=== PATIENT | male | born 1945 | race Caucasian/White ===

== ENCOUNTER 2016-12-28 17:35 | Emergency (ER) | payer MEDICARE ==
[~2016-12-28] VITALS: Ht 182.9 cm; Wt 81.0 kg
[~2016-12-28 17:35] MED LIST: Z.0.NO CURRENT MEDS
[2016-12-28 17:39] VITALS: BP 168/84; PULSE 109; RESP 18; TEMP 98.1; O2SAT 96
--- NOTE | 2016-12-28 17:58 | PD ---
HPI Chief Complaint: Lump, Cyst, Hernia Time Seen by Provider: 17:54 Travel History International Travel<30 days: No Contact w/Intl Traveler<30days: No Traveled to known affect area: No History of Present Illness HPI 71-year-old male presents to the emergency department for evaluation of a lump in his right groin that he noticed today. He states it is not painful. He denies any redness or warmth over the area. Patient states he has a cardiac history, but states he is not currently taking any medications. Patient also states that he suffers from chronic insomnia. He is asking for prescription for Ambien. The patient denies any fevers or chills. No other complaints. PFSH Past Medical History Arthritis: Yes ("arthritis of the neck") Cardiac Catheterization: Yes (STENTS PLACED 11/2006) High Cholesterol: Yes Chest Pain: Yes Coronary Artery Disease: Yes Diminished Hearing: No Herniated Disk: Yes Insomnia: Yes Musculoskeletal: Yes (CHRONIC BACK PAIN) Past Surgical History Appendectomy: Yes Cardiac Surgery: Yes (STENT IN 2001) Coronary Stent: Yes ("three stents") Tonsillectomy: Yes Social History Alcohol Use: No Tobacco Use: No (quit 1998) Substance Use: No Allergies-Medications (Allergen,Severity, Reaction): Coded Allergies: No Known Allergies (Verified , 12/28/16) Reported Meds & Prescriptions Reported Meds & Active Scripts Active Reported No Current Meds (Miscellaneous Medication) Misc Review of Systems Except as stated in HPI: all other systems reviewed are Neg Physical Exam Narrative GENERAL: Well-nourished, well-developed male patient, afebrile. SKIN: Focused skin assessment warm/dry. HEAD: Normocephalic. Atraumatic. EYES: No scleral icterus. No injection or drainage. NECK: Supple, trachea midline. No JVD or lymphadenopathy. CARDIOVASCULAR: Regular rate and rhythm without murmurs, gallops, or rubs. RESPIRATORY: Breath sounds equal bilaterally. No accessory muscle use. Lungs sounds are clear to auscultation. GASTROINTESTINAL: Abdomen soft, non-tender, nondistended. Patient has a right inguinal hernia that is easily reproduced. It is nontender. MUSCULOSKELETAL: No cyanosis, or edema. BACK: Nontender without obvious deformity. No CVA tenderness. Data Data Last Documented VS Vital Signs Date Time Temp Pulse Resp B/P Pulse Ox O2 Delivery O2 Flow Rate FiO2 12/28/16 17:39 98.1 109 18 168/84 96 [facility] Medical Decision Making Medical Screen Exam Complete: Yes Emergency Medical Condition: Yes Medical Record Reviewed: Yes Differential Diagnosis Inguinal hernia versus lymphadenitis versus abscess Narrative Course 71-year-old male presents to the emergency department for evaluation of swelling to his right inguinal region. Physical exam reveals an easily reducible hernia. Patient is also asking for prescription for Ambien for insomnia which is chronic for him. I instructed to follow-up with primary care physician for this. He is also to follow up with his primary care physician for the hernia. He is to return here for any worsening symptoms. Patient verbalizes agreement and understanding. The patient was discharged in stable condition with instructions, including return instructions and follow up instructions. Diagnosis Primary Impression: Right inguinal hernia Referrals: General Surgeon Primary Care Physician Patient Instructions: General Instructions, Inguinal Hernia (ED) Additional Instructions: Follow up with your primary care physician and general surgeon. Return to the emergency department for any acute, worsening of symptoms. Med/Other Pt SpecificInfo: No Change to Meds Disposition: 01 DISCHARGE HOME Condition: Stable Helen Obregon JOCELIN Dec 28, 2016 17:58
[2016-12-28] MEDS ORDERED: AMBI10TA PO (18:04)
== END 2016-12-28 18:11 | disposition home or self-care (01) ==
LOC: PHED 17:35
DX: K40.90 Unilateral inguinal hernia, without obstruction or gangrene, not specified as recurrent (principal)
CPT/HCPCS: 99281

== ENCOUNTER 2017-02-15 02:15 | Inpatient (IN) | payer OTHER, MEDICARE ==
[~2017-02-15] VITALS: Ht 170.2 cm; Wt 83.0 kg
[2017-02-15] VITALS (24 sets, daily range): BP systolic 84–140; BP diastolic 57–90; PULSE 61–102; RESP 16–20; TEMP 97.3–98.6; O2SAT 91–99
[~2017-02-15 02:15] MED LIST changes: +AMBI10TA PO; -Z.0.NO CURRENT MEDS
[2017-02-15] MEDS ORDERED: SODIUM CHLOR 0.9% 1000 ML INJ 1,000 ML IV ONE (02:20)
[2017-02-15] MEDS ORDERED: NITROGLYCERIN 0.4 MG SL 25 TABS/BTL SL STA (02:20)
[2017-02-15] MEDS ORDERED: ASPIRIN 81 MG CHEW TAB PO STA (02:20)
[2017-02-15] MEDS ORDERED: HEPARIN SODIUM - IV 10,000 UNITS/10 ML VIAL IV STA (02:20)
[2017-02-15] MEDS ORDERED: SODIUM CHLORIDE 0.9% FLUSH 10 ML FLUSH IVF PRN (02:30)
[2017-02-15] MEDS ORDERED: NITROGLYCERIN-D5W 50 MG/250 ML 250 ML IV PRN (02:30)
[2017-02-15] MEDS ORDERED: METOPROLOL TARTRATE 5 MG/5 ML VIAL SLOW IVP SCH (02:30)
[2017-02-15 02:35] LABS: AUTOMATED NEUTROPHIL # 4.7 TH/MM3 (1.8-7.7); BASOPHIL # 0.2 TH/MM3 (0-0.2); BASOPHIL % 2.1 % (0.0-2.0); EOSINOPHIL # 0.3 TH/MM3 (0-0.4); EOSINOPHIL % 2.6 % (0.0-4.0); HEMATOCRIT 45.7 % (39.0-51.0); LYMPH % 41.4 % (9.0-44.0); LYMPHOCYTE # 4.1 TH/MM3 (1.0-4.8); MEAN CELL VOLUME 89.5 FL (80.0-100.0); MEAN CORPUSCULAR HEMOGLOBIN 29.6 PG (27.0-34.0); MONO % 6.5 % (0.0-8.0); NEUT % 47.4 % (16.0-70.0); PLATELET COUNT 317 TH/MM3 (150-450); RED BLOOD COUNT 5.11 MIL/MM3 (4.50-5.90); RED CELL DISTRIBUTION WIDTH 13.6 % (11.6-17.2); WHITE BLOOD COUNT 9.9 TH/MM3 (4.0-11.0)
[2017-02-15 02:36] LABS: HEMO FLAGS DIFF FINAL
--- NOTE | 2017-02-15 02:36 | PD ---
HPI Chief Complaint: Chest Pain Time Seen by Provider: 02:20 Travel History International Travel<30 days: No Contact w/Intl Traveler<30days: No Traveled to known affect area: No History of Present Illness HPI The patient is a 71-year-old male with a known history of coronary artery disease and having had 2 stents-2001 and 2006 who complains of a pressure pain in these left upper chest beginning at 5 minutes after 2 in the morning. The pain radiates to his jaw and he does have some diaphoresis and shortness of breath associated with the pain. The pain is constant since it began. He does take aspirin and took aspirin yesterday but none today. He does not smoke but does have elevated cholesterol. He does not have diabetes or hypertension. He had a stress test 2 weeks ago done at the [place] and this was abnormal and showed ischemia. This was not followed up by an angiogram. [facility] Past Medical History Arthritis: Yes ("arthritis of the neck") Cardiac Catheterization: Yes (STENTS PLACED 11/2006) High Cholesterol: Yes Chest Pain: Yes Coronary Artery Disease: Yes Diminished Hearing: No Herniated Disk: Yes Insomnia: Yes Musculoskeletal: Yes (CHRONIC BACK PAIN) ?: Not Past Surgical History Appendectomy: Yes Cardiac Surgery: Yes (STENT IN 2001) Coronary Stent: Yes ("three stents") Tonsillectomy: Yes Social History Alcohol Use: No Tobacco Use: No (quit 1998) Substance Use: No Allergies-Medications (Allergen,Severity, Reaction): Coded Allergies: No Known Allergies (Verified , 02/15/17) Reported Meds & Prescriptions Reported Meds & Active Scripts Active No Active Prescriptions or Reported Medications Review of Systems Except as stated in HPI: all other systems reviewed are Neg Physical Exam Narrative GENERAL: The patient is alert, oriented 3 and moderate amount of distress with his chest discomfort. His vital signs show heart rate of 102 but are otherwise normal. SKIN: Focused skin assessment warm/dry. HEAD: Atraumatic. Normocephalic. EYES: Pupils equal and round. No scleral icterus. No injection or drainage. ENT: No nasal bleeding or discharge. Mucous membranes pink and moist. NECK: Trachea midline. No JVD. CARDIOVASCULAR: Regular rate and rhythm. No murmur appreciated. I cannot reproduce patient's pain by pressing on the chest wall. RESPIRATORY: No accessory muscle use. Clear to auscultation. Breath sounds equal bilaterally. GASTROINTESTINAL: Abdomen soft, non-tender, nondistended. Hepatic and splenic margins not palpable. No guarding or rebound is present. MUSCULOSKELETAL: No obvious deformities. No clubbing. No cyanosis. No edema. NEUROLOGICAL: Awake and alert. No obvious cranial nerve deficits. Motor grossly within normal limits. Normal speech. PSYCHIATRIC: Appropriate mood and affect; insight and judgment normal. Data Data Last Documented VS Vital Signs Date Time Temp Pulse Resp B/P (MAP) Pulse Ox O2 Delivery O2 Flow Rate FiO2 02/15/17 02:18 98.0 102 18 140/83 (102) Orders Orders Troponin I (02/15/17 02:20) Ckmb (Isoenzyme) Profile (02/15/17 02:20) Complete Blood Count With Diff (02/15/17 02:20) Basic Metabolic Panel (Bmp) (02/15/17 02:20) Magnesium (Mg) (02/15/17 02:20) Calcium (02/15/17 02:20) Prothrombin Time / Inr (Pt) (02/15/17 02:20) Act Partial Throm Time (Ptt) (02/15/17 02:20) B-Type Natriuretic Peptide (02/15/17 02:20) Chest, Single Ap (02/15/17 02:20) Electrocardiogram (02/15/17 02:20) Oxygen Administration (02/15/17 02:20) Iv Access Insert/Monitor (02/15/17 02:20) Oximetry (02/15/17 02:20) Sodium Chlor 0.9% 1000 Ml Inj (Ns 1000 M (02/15/17 02:20) Sodium Chloride 0.9% Flush (Ns Flush) (02/15/17 02:30) Aspirin Chew (Aspirin Chew) (02/15/17 02:20) Nitroglycerin Sl (Nitrostat Sl) (02/15/17 02:20) Nitroglycerin-D5w 50 Mg/250 Ml (Nitrogly (02/15/17 02:30) Heparin Inj (Heparin Inj) (02/15/17 02:20) Metoprolol Tartrate Inj (Lopressor Inj) (02/15/17 02:30) Labs Laboratory Tests Test 02/15/17 02:10 White Blood Count 9.9 TH/MM3 Red Blood Count 5.11 MIL/MM3 Hemoglobin 15.1 GM/DL Hematocrit 45.7 % Mean Corpuscular Volume 89.5 FL Mean Corpuscular Hemoglobin 29.6 PG Mean Corpuscular Hemoglobin Concent 33.0 % Red Cell Distribution Width 13.6 % Platelet Count 317 TH/MM3 Mean Platelet Volume 8.4 FL Neutrophils (%) (Auto) 47.4 % Lymphocytes (%) (Auto) 41.4 % Monocytes (%) (Auto) 6.5 % Eosinophils (%) (Auto) 2.6 % Basophils (%) (Auto) 2.1 % Neutrophils # (Auto) 4.7 TH/MM3 Lymphocytes # (Auto) 4.1 TH/MM3 Monocytes # (Auto) 0.6 TH/MM3 Eosinophils # (Auto) 0.3 TH/MM3 Basophils # (Auto) 0.2 TH/MM3 CBC Comment DIFF FINAL Differential Comment MDM Medical Decision Making Medical Screen Exam Complete: Yes Emergency Medical Condition: Yes Medical Record Reviewed: Yes Interpretation(s) The EKG shows slight ST elevation on one and L with reciprocal depression in II , III, and F aVF. ST elevation on 1 and L is minimal. This represents a change from an EKG taken on November 2006. Leads V1 through V3 may show hyperacute change. Differential Diagnosis Acute coronary syndrome, STEMI alert, pericarditis-unlikely, electrolyte disorder, renal insufficiency Narrative Course The patient appears to have a STEMI alert, acute anterolateral myocardial infarction. He came in so early that some of the changes may not show up on the EKG other than hyperacute changes. The patient was discussed with Dr. Sesay who accepted the patient in the catheter lab. The patient is leaving he states his pain is slightly improved now. It is now 0241. Physician Communication Physician Communication I discussed the patient with Dr. Sesay. Diagnosis Primary Impression: Acute myocardial infarction Admitting Information Admitting Physician Requests: Admit Scripts No Active Prescriptions or Reported Meds Farhat Paul MD Feb 15, 2017 02:36
--- NOTE | 2017-02-15 02:40 | RADRPT ---
EXAM DATE/TIME: 02/15/2017 02:25 [place] COMPARISON: No previous studies available for comparison. INDICATIONS : Stemi alert. MEDICAL HISTORY : Hypercholesterolemia. Arthritis. CAD, HNP SURGICAL HISTORY : Tonsillectomy. Coronary artery stent. Appendectomy. Back surgery ENCOUNTER: Initial ACUITY: 1 day PAIN SCORE: 10/10 LOCATION: Bilateral chest FINDINGS: There is poor delineation of the central bronchopulmonary markings and findings suggesting peribronch ial thickening. Non consolidative infiltrates are present in the retrocardiac region and there is ob scuration of portions of the left hemidiaphragm. The minor fissure in the right lung is slightly pro minent suggesting possible atelectasis or fissural fluid. The heart is enlarged. CONCLUSION: Cardiomegaly, engorgement of the central bronchopulmonary markings, and patchy infiltrates in the lef t lower lung. Gregor Pepe MD on February 15, 2017 at 2:37 Board Certified Radiologist. This report was verified electronically.
[2017-02-15 02:44] LABS: CHLORIDE 102 MEQ/L (98-107); POTASSIUM 3.8 MEQ/L (3.5-5.1); SODIUM (NA) 138 MEQ/L (136-145)
[2017-02-15 02:47] LABS: ANION GAP 10 MEQ/L (5-15); BICARBONATE 26.3 MEQ/L (21.0-32.0); BLOOD UREA NITROGEN 18 MG/DL (7-18); MAGNESIUM 2.5 MG/DL (1.5-2.5)
[2017-02-15 02:48] LABS: APTT (PATIENT) 26.4 SEC (24.3-30.1); INTERNATIONAL NORMALIZED RATIO 0.9 RATIO; PROTHROMBIN TIME - PATIENT 10.2 SEC (9.8-11.6)
[2017-02-15 02:51] LABS: GLOMERULAR FILTRATION RATE 55 ML/MIN (>89)
[2017-02-15] MEDS ORDERED: HEPARIN-NS/PF INJ 1,000 ML ONE (02:58)
[2017-02-15] MEDS ORDERED: SODIUM CHLORID 0.9% 500 ML INJ 500 ML ONE (02:59)
[2017-02-15 03:00] LABS: CREATINE KINASE 56 U/L (39-308)
[2017-02-15] MEDS ORDERED: VERAPAMIL HCL 5 MG/2 ML VIAL ONE (03:11)
[2017-02-15] MEDS ORDERED: HEPARIN SODIUM - IV 10,000 UNITS/10 ML VIAL ONE (03:12)
[2017-02-15] MEDS ORDERED: NITROGLYCERIN INJ 5 ML ONE (03:12)
[2017-02-15] MEDS ORDERED: MIDAZOLAM HCL 2 MG/2 ML VIAL ONE (03:23)
[2017-02-15] MEDS ORDERED: HEPARIN SODIUM - IV 10,000 UNITS/10 ML VIAL IV ONE (03:25)
[2017-02-15] MEDS ORDERED: NITROGLYCERIN 1000 MCG/5 ML VIAL IV ONE (03:25)
[2017-02-15] MEDS ORDERED: HEPARIN-D5W 25,000 U/250 ML 250 ML ONE (03:37)
--- NOTE | 2017-02-15 03:51 | CATHPROC ---
[facility] HIS Report Study Information Study Number Admission Scheduled Start Study Start [id number] Feb 15 2017 2:15AM 02/15/2017 Feb 15 2017 2:59AM [place] Service Cardiac Catheterization Admit Source Facility Department Emergency department [facility] Physician and Clinical Staff Initial Julián Ann Sweater Operator Radha Aragon,BISHOP Sweater OperatorAlaina Rivers RN Other cathlab, cathlab Recorder Emmanuel Palafox RCIS(BS) Scrub Ricki Blandon RT(R) Procedures Performed Procedure Location (Site) Vessel Name Coronary Angiograms LCA Left Coronary Coronary Angiograms RCA Right Coronary L Heart Cath Equipment Time Byproducts Extractor Description Size Mfg Part Number Used/Scraped TRANSDUCER, TRUWAVE [id number] 03:14 WINN DOWELL * Used W/STOCKCOCK *[id number] [id number] *[id number] [id number] *[id number] [id number] *[id number] 03:14 MedVentive PACK, CCL CUSTOM * Used *[id number] 03:14 [employer]ive SUPPORT, ARTERIAL ADULT 83597 *[id number] Used BAND, RADIAL COMPRESSION TR [id number] 03:42 [employer] MEDICAL 29CM Used LARGE 29 *[id number] 03:14 [employer] WIRE, 3MMJ .035 180CM 180CM Used *[id number] 03:14 [employer] MEDICAL WIRE, EXCHANGE 260CM 3MMJ 260CM Used *[id number] 03:14 NAMIC MANIFOLD, 4 PORT * Used *[id number] 03:14 [employer]ED OMNIPAQUE, 350 MG, 150ML 150ML [id number] Used [id number] 03:14 [employer] BLANKET,WARM AIR CCL * Used *[id number] SHEATH, FR6 TRANSRADIAL RM*[id number] 03:14 [employer]ler FR 6 Used SLENDER 10CM *[id number] History: Allergies Allergy Reaction No Known Allergies History: Risk Factors Family History of Hypertension Dyslipidemia Previous MO Previous Heart Failure Premature CAD Yes Yes No No No Prior Valve Prior PCI Prior PCIDate Prior CABG Surgery No Yes 05/26/2006 No Cerebrovascular Peripheral Artery Chronic Lung On Dialysis Diabetes Disease Disease Disease No No No No No History: Symptoms/Diagnosis Selection Items Chest pain History: CV Disease Selection Items Known CAD History: Stress Tests Stress or Imaging Studies Performed No History: Other Disease Selection Items CAD HTN History: MO/CV Data Previous Cath Date 05/26/2006 History: Other Current Smoker Method Quit Packs a Day Years Used Pack Years No Cigarettes 40 Years Ago 1 10 10 Labs Hgb (g/dl) Hct (%) RBC (MIL/MM3) WBC (l/cumm) Platelets (thousands) 11.60-17.00 35.00-51.00 4.00-5.90 4.00-11.00 150.00-450.00 15.1 45.7 5.1 9.9 317 Glucose (mg/dl) BUN (mg/dl) Creatinine (mg/dl) BUN:Creatinine (1:x) 74.00-106.00 7.00-18.00 0.50-1.30 10.00-20.00 127 18 1.3 13.8 Na (meq/l) K (meq/l) Cl (meq/l) CO2 (mmol/L) Ca (mg/dl) 136.00-145.00 3.50-5.10 98.00-107.00 21.00-32.00 8.50-10.10 138 3.8 102 26.3 9 INR (PTT:PT) 0.90-1.10 0.9 CPK-MB (ng/ML) 0.50-3.60 Not Drawn Medication Medication Total Dose (Bolus/Oral) Medication Total Dosage/Unit 1% XYLOCAINE 3 mL FENTANYL 25 mcg RADIAL COCKTAIL 5 mL (Bolus) VERSED 0.5 mg Medications (Bolus/Oral) Medication Time Given Dosage/Unit Administered By Reason 1% XYLOCAINE 02/15/2017 3:21:56 AM 3 mL Julián Sesay 3 mL 1% XYLOCAINE given in lab by Julián Sesay in Right Radial via Subcutaneous. Ntg 200mcg Verapamil 2.5mg Heparin RADIAL COCKTAIL 02/15/2017 3:24:40 AM 5 mL (Bolus) Julián Sesay 2500U 5 mL (Bolus) RADIAL COCKTAIL given in lab by Julián Sesay via Radial. Using [Solution Name]. [employer] son: Ntg 200mcg Verapamil 2.5mg Heparin 4000U. VERSED 02/15/2017 3:24:53 AM 0.5 mg Radha Aragon 0.5 mg VERSED given in lab by Radha Aragon, RN in Right Antecubital via Peripheral IV. Ordered by Julián Sesay. FENTANYL 02/15/2017 3:25:01 AM 25 mcg Radha Aragon 25 mcg FENTANYL given in lab by Radha Aragon RN in Right Antecubital via Peripheral IV. Ordered b Julián Avina. Medication (Drip) Medication Time Given Dosage/Unit Concentration/Unit Diluent (ml) Solution IV Solutions 02/15/2017 2:59:56 AM 0 mL (IV) 500 NaCl .9 Patient arrived on IV Solutions given by emily diaz in Right Antecubital via Peripheral IV. Pum p/Drip Flow = 20 ml/hr using NaCl .9. Ordered by Julián Sesay. Initial Case Assessment Cardiovascular HR Rhythm NIBP Chest Pain 70 NSR 127/79 3 Edema Present Skin color Skin None Normal Warm Dry Circulatory - Right Pulses Dorsalis Pedis Femoral Radial 1 2 2 Scale (0,1,2,3,4,d) Circulatory - Left Pulses Dorsalis Pedis Femoral Radial 1 2 Scale (0,1,2,3,4,d) Neurological State Oriented to time-place- Alert Moves all extremities person Respiration - General Respiration Rate SpO2 (%) (B/min) 15 96 Initial Case Assessment Cardiovascular HR Rhythm NIBP Chest Pain 87 NSR 123/76 1 Edema Present Skin color Skin None Normal Warm Dry Circulatory - Right Pulses Dorsalis Pedis Femoral Radial 1 2 2 Scale (0,1,2,3,4,d) Circulatory - Left Pulses Dorsalis Pedis Femoral Radial 1 2 Scale (0,1,2,3,4,d) Neurological State Oriented to time-place- Alert Moves all extremities person Respiration - General Respiration Rate SpO2 (%) (B/min) 15 97 Chronological Log Time Study Chronological Log 2:59:45 Patient arrived via Bed. 2:59:46 Patient Name, D.O.B, / Armband Verified By R.N. 2:59:47 Consent signed by the physician and the patient and verified by the [facility] staff. 2:59:48 Pre-op and post- op instructions given; patient acknowledges understanding of instructions. 2:59:48 Verbal Stimulation=2 Physical Stimulation=2 Airway=2 Respiration=2 TOTAL=8. (0=absent, 1=li mited, 2=present) 2:59:49 Presedation assessment performed by [facility] RN. 2:59:50 Immediate Presedation assesment performed by physician. 2:59:51 Patient has been NPO for More than 6Hrs. 2:59:51 Skin Breakdown- 2:59:52 Patient Warmer Placed on the Table. 2:59:53 Disposable Defibrillator Pads Placed On Patient. 2:59:54 Obed Prominences Protected 2:59:55 A # 20 IV was noted in the Antecubital (right). Grade = 0 2:59:55 A # 20 IV was noted in the Forearm (right). Grade = 0 Patient arrived on IV Solutions given by cathlab, cathlab in Right Antecubital via Peripheral I V. Pump/Drip Flow = 20 2:59:56 ml/hr using NaCl .9. Ordered by Julián Sesay. 2:59:57 History and physical on the chart or being dictated. 3:00:00 MD arrived. Vitals capture started with the following parameters, Patient=Adult, Interval=5 min, Initial Pre cqjpn=313 mmHg, 3:09:33 Deflation Rate=5 mmHg, Cuff placed on Left Ankle 3:10:09 HR=72 bpm, YEUX=934/87 mmhg, SpO2=98.0 %, Resp=16 B/min, Pain=3, Crystal=10, Preciado=2 3:15:08 HR=72 bpm, CILC=548/79 mmhg, SpO2=97.0 %, Resp=17 B/min, Pain=3, Crystal=10, Preciado=2 3:15:08 Reference ECG taken Assessment: Initial Case, HR=70 BPM, Rhythm=NSR, MZOH=291/79 mmhg, Chest Pain=3, Edema=None, Color=Normal, Skin = Warm, Dry Right Pulses: Oumar Ped=1, Femoral=2, Radial=2 3:15:11 Left Pulses: Oumar Ped=1, Femoral=2 Neurological: State=Alert, Ox3, SILVA Respiration: Resp=15 B/min, SpO2=96 % 3:15:37 Right Radial and groin(s) prepped with 2% chlorhexidine, and with a 3 min. waiting time. 3:15:52 Contrast Scanned 3:15:53 Immediate Presedation assesment performed by physician. 3:20:05 HR=68 bpm, NGRF=864/82 mmhg, Resp=16 B/min, Pain=2, Crystal=10, Preciado=2 3:21:02 Pressure channel 1 zeroed. Time Out. Correct patient, correct procedure,correct physician, ,power injector not loaded with contrast with surgical 3:21:23 team present. Time Out Concurred by MD, individual staff in procedure 3:21:43 Case Start 3:21:45 Verbal Stimulation=2 Physical Stimulation=2 Airway=2 Respiration=2 TOTAL=8. (0=absent, 1=dueñas ited, 2=present) 3:21:56 3 mL 1% XYLOCAINE given in lab by Julián Sesay in Right Radial via Subcutaneous. 3:24:16 Access site was Right Radial Artery. A SHEATH, FR6 TRANSRADIAL SLENDER 10CM FR 6 was advanced into the Radial (right) using the Percu tanmarleen 3:24:32 technique. 5 mL (Bolus) RADIAL COCKTAIL given in lab by Julián Sesay via Radial. Using [Solution Name] . Reason: Ntg 3:24:40 200mcg Verapamil 2.5mg Heparin 4000U. 0.5 mg VERSED given in lab by Radha Aragon, BISHOP in Right Antecubital via Peripheral IV. Ordere d by Lázaro, 3:24:53 Julián. 25 mcg FENTANYL given in lab by Radha Aragon, RN in Right Antecubital via Peripheral IV. Orde red by Lázaro, 3:25:01 Julián. 3:25:04 HR=78 bpm, DOLP=641/90 mmhg, SpO2=97.0 %, Resp=10 B/min, Pain=2, Crystal=10, Preciado=2 A JR 5.0 INFINITI CATHETER FR 5 was advanced over a wire. OMNIPAQUE, 350 MG, 150ML 150ML was use d for 3:26:05 injections. Recorded Pressure: LV, HR=88, Condition=Condition 1 3:27:26 (Left Ventricle) LV 126/3/6 Recorded Pressure: LV, Ao, HR=92, Condition=Condition 1 3:27:39 (Left Ventricle) LV 112/2/6, (Aorta) Ao 122/74/98 3:28:25 The RCA was injected and visualized at various angles. OMNIPAQUE, 350 MG, 150ML 150ML used. After removing the current catheter a JL 3.5 INFINITI CATHETER FR 5 was advanced over a WIRE, EX CHANGE 260CM 3:28:34 3MMJ 260CM. 3:30:09 HR=87 bpm, TALR=745/82 mmhg, SpO2=93.0 %, Resp=12 B/min, Pain=2, Crystal=10, Preciado=2 Recorded Pressure: Ao, HR=84, Condition=Condition 1 3:30:37 (Aorta) Ao 108/70/89 3:31:16 The LCA was injected and visualized at various angles. OMNIPAQUE, 350 MG, 150ML 150ML used. 3:35:08 HR=77 bpm, XQEO=793/69 mmhg, SpO2=93.0 %, Resp=15 B/min, Pain=2, Crystal=10, Preciado=2 3:38:14 Catheter was removed 3:40:05 HR=86 bpm, OLYZ=291/76 mmhg, SpO2=98.0 %, Resp=17 B/min, Pain=2, Crystal=10, Preciado=2 Radial Compression Device Used. 13 mLs of air placed in BAND, RADIAL COMPRESSION TR LARGE 29 29C M. Affected 3:40:27 hand 96 % O2 saturation. 3:40:43 Case End Assessment: Initial Case, HR=87 BPM, Rhythm=NSR, IJKG=861/76 mmhg, Chest Pain=1, Edema=None, Color=Normal, Skin = Warm, Dry Right Pulses: Oumar Ped=1, Femoral=2, Radial=2 3:40:46 Left Pulses: Oumar Ped=1, Femoral=2 Neurological: State=Alert, Ox3, SILVA Respiration: Resp=15 B/min, SpO2=97 % 3:41:02 Catheter(s) removed without difficulty 3:41:06 Sterile dressing applied to site 3:41:06 No case complications noted. 3:41:07 Cine recording checked. 3:41:09 Bedside Report will be given. 3:41:11 Contrast Scanned 3:41:12 Verbal Stimulation=2 Physical Stimulation=2 Airway=2 Respiration=2 TOTAL=8. (0=absent, 1=l imited, 2=present) 3:41:22 A Left Heart Cath was performed. 3:42:49 Case End 3:45:08 HR=77 bpm, CRTN=082/77 mmhg, SpO2=97.0 %, Resp=14 B/min, Pain=2, Crystal=10, Preciado=2 3:49:04 Vitals capture stopped. 3:49:06 Patient moved to stretcher End Study - Contrast Media Used In Study Contrast Total Opened (mL) Total Used (mL) Total Wasted (mL) Omnipaque 40 40 0 End Study - Maximum Contrast Load Max Contrast Load (mL) 313.5 End Study - Radiation Exposure Fluoro Time (minutes) 2.2 End Study - Patient Disposition Complications Transferred To Interventional Outcome No [facility] No attempt made
[2017-02-15] MEDS ORDERED: MIDAZOLAM HCL 2 MG/2 ML VIAL IV ONE (04:15)
[2017-02-15] MEDS ORDERED: VERAPAMIL HCL 5 MG/2 ML VIAL IV PUSH ONE (04:15)
[2017-02-15] MEDS ORDERED: HEPARIN-D5W 25,000 U/250 ML 250 ML IV PRN (04:15)
[2017-02-15] MEDS ORDERED: PILL SPLITTER OTHER PRN (04:45)
[2017-02-15 06:24] LABS: MEAN CELL VOLUME 92.7 FL (80.0-100.0); MEAN CORPUSCULAR HEMOGLOBIN 30.9 PG (27.0-34.0); MEAN CORPUSCULAR HGB CONC 33.4 % (32.0-36.0); PLATELET COUNT 249 TH/MM3 (150-450); RED BLOOD COUNT 4.75 MIL/MM3 (4.50-5.90); RED CELL DISTRIBUTION WIDTH 14.4 % (11.6-17.2); REVIEW FLAG FINAL; WHITE BLOOD COUNT 10.9 TH/MM3 (4.0-11.0)
[2017-02-15 06:30] LABS: APTT (PATIENT) 78.7 SEC (24.3-30.1); PROTHROMBIN TIME - PATIENT 11.2 SEC (9.8-11.6)
--- NOTE | 2017-02-15 08:30 | PD.CONS ---
HPI Service [facility] Consult Requested By Dr. Sesay Reason for Consult Medical management Primary Care Physician Non-Staff Diagnoses: (1) Coronary artery disease (2) Acute myocardial infarction History of Present Illness The patient is a 71-year-old male with history of coronary artery disease who presented to the emergency department with acute onset of severe left-sided chest pain at approximately 0130 this morning. He states that he was having trouble getting to sleep and started having pain in the left side of his chest. The pain radiated to his jaw. He reports associated dyspnea and diaphoresis. He presented to the emergency department and STEMI alert was called. He was taken to the cardiac catheterization lab and found to have multivessel coronary artery disease. He states that his chest pain is much improved, but he does still have mild left-sided chest discomfort. Denies any radiation of the pain currently. No dyspnea or diaphoresis at this time. He states that [facility]. He states that he was scheduled to see a dough panner one week later, but has not made it to that appointment yet. He has a history of coronary artery disease and has had stents placed. He does not take any medications currently. He states that he does not tolerate statins, as they cause severe muscle pains. Review of Systems Constitutional: DENIES: Fever, Chills, Night Sweats Eyes: DENIES: Blurred vision, Vision loss Ears, nose, mouth, throat: DENIES: Hearing loss Respiratory: DENIES: Cough, Wheezing, Sputum production, Shortness of breath Cardiovascular: COMPLAINS OF: Chest pain, DENIES: Palpitations, Dyspnea on Exertion, Lower Extremity Edema Gastrointestinal: DENIES: Abdominal pain, Constipation, Diarrhea, Nausea, Vomiting Genitourinary: DENIES: Urinary frequency, Urinary incontinence, Urgency, Hematuria, Dysuria, Nocturia Musculoskeletal: DENIES: Joint pain, Muscle aches Integumentary: DENIES: Pruritus, Rash Hematologic/lymphatic: DENIES: Bruising Neurologic: DENIES: Headache Past Family Social History Allergies: Coded Allergies: No Known Allergies (Verified , 02/15/17) Past Medical History Coronary artery disease TIA 2012 Past Surgical History Cardiac catheterization with placement of stents (2006) Tonsillectomy Appendectomy Reported Medications None Family History Mother had a stroke. Social History Quit smoking 25 years ago. Denies alcohol or illicit drug use. Physical Exam Vital Signs Vital Signs Date Time Temp Pulse Resp B/P (MAP) Pulse Ox O2 Delivery O2 Flow Rate FiO2 02/15/17 04:00 97.3 80 16 116/73 (87) 95 02/15/17 02:40 86 16 133/89 (104) 99 02/15/17 02:25 92 16 130/90 (103) 99 Nasal Cannula 2.00 02/15/17 02:18 98.0 102 18 140/83 (102) 02/15/17 02:16 98 2.00 02/15/17 02:16 98 Nasal Cannula 2.00 02/15/17 02:15 99 Nasal Cannula 2.00 02/15/17 02:15 102 16 99 Nasal Cannula 2.00 Physical Exam GENERAL: Elderly male in no acute distress. HEENT: Normocephalic, atraumatic. Pupils equal, round and reactive. Extraocular movements intact. No scleral icterus. No injection or drainage. Oropharynx is clear. Mucous membranes are moist. CARDIOVASCULAR: Regular rate and rhythm without murmurs, gallops, or rubs. RESPIRATORY: Clear to auscultation. No wheezes, rales, or rhonchi. Breathing is non-labored. GASTROINTESTINAL: Abdomen soft, non-tender, nondistended. EXTREMITIES: No lower extremity edema. No calf tenderness. PSYCH: Alert and oriented x 3. Laboratory Laboratory Tests Test 02/15/17 02:10 02/15/17 04:40 White Blood Count 9.9 10.9 Red Blood Count 5.11 4.75 Hemoglobin 15.1 14.7 Hematocrit 45.7 44.0 Mean Corpuscular Volume 89.5 92.7 Mean Corpuscular Hemoglobin 29.6 30.9 Mean Corpuscular Hemoglobin Concent 33.0 33.4 Red Cell Distribution Width 13.6 14.4 Platelet Count 317 249 Mean Platelet Volume 8.4 9.4 Neutrophils (%) (Auto) 47.4 Lymphocytes (%) (Auto) 41.4 Monocytes (%) (Auto) 6.5 Eosinophils (%) (Auto) 2.6 Basophils (%) (Auto) 2.1 Neutrophils # (Auto) 4.7 Lymphocytes # (Auto) 4.1 Monocytes # (Auto) 0.6 Eosinophils # (Auto) 0.3 Basophils # (Auto) 0.2 CBC Comment DIFF FINAL Differential Comment Prothrombin Time 10.2 11.2 Prothromb Time International Ratio 0.9 1.0 Activated Partial Thromboplast Time 26.4 78.7 Blood Urea Nitrogen 18 Creatinine 1.30 Random Glucose 127 Calcium Level 9.0 Magnesium Level 2.5 Sodium Level 138 Potassium Level 3.8 Chloride Level 102 Carbon Dioxide Level 26.3 Anion Gap 10 Estimat Glomerular Filtration Rate 55 Total Creatine Kinase 56 Troponin I LESS THAN 0.02 B-Type Natriuretic Peptide 44 Result Diagram: 02/15/17 0440 02/15/17209 Imaging Last Impressions Chest X-Ray 02/15/17219 Signed Impressions: Service Date/Time: Wednesday, February 15, 2017 02:25 - CONCLUSION: Cardiomegaly, engorgement of the central bronchopulmonary markings, and patchy infiltrates in the left lower lung. Gregor Pepe MD Assessment and Plan Assessment and Plan 1. STEMI: Status post cardiac catheterization. Patient found to have multivessel coronary artery disease. Appreciate cardiology recommendations. Cardiovascular surgery consult requested. Continue heparin drip. 2. Coronary artery disease: Patient started on aspirin, Lipitor, metoprolol. Patient states that he has not tolerated statins in the past. 3. DVT prophylaxis: On heparin drip. Deshawn Martinez MD Feb 15, 2017 08:30
[2017-02-15] MEDS: METOPROLOL TARTRATE 25 MG TAB PO SCH ×2 (08:35→21:01)
[2017-02-15] MEDS: ASPIRIN 81 MG CHEW TAB CHEW SCH (08:35)
[2017-02-15] MEDS: ACETAMINOPHEN 325 MG TAB PO PRN ×2 (08:49→15:35)
--- NOTE | 2017-02-15 08:53 | MH ---
cc: JULIÁN GLASGOW DO DATE OF ADMISSION: 02/15/2017 REASON FOR ADMISSION Chest pain with abnormal EKG. HISTORY OF PRESENT ILLNESS Romaine Harper is a pleasant 71-year-old male who presented to [facility] emergency room on February 15, 2017 due to chest pain. He states that the chest pain began right around 02:00 a.m. in the morning. Pain was in the center his chest a radiated to his jaw. He had mild diaphoresis and shortness of breath with the pain. While in the emergency room an EKG was done and a STEMI alert was called. I was called emergently and the patient was transferred to [facility] label folder. Upon arrival to the label folder. The patient's pain was 2/10 and his EKG showed no ST elevations but ST depressions inferiorly and mild ST elevation of AVR. The patient had a previous episode of angina 3-4 weeks ago and since he does everything through [facility]. He had a stress test done which he told was abnormal and he was suppose to follow up with a laboratory veterinarian at the [facility] in the next few weeks. In seeing him at the label folder. He is currently hemodynamically stable with no shortness of breath but still has mild chest pain. PAST MEDICAL HISTORY 1. Coronary artery disease. 2. Hyperlipidemia 3. Chronic back pain. 4. Arthritis 5. BPH. PAST SURGICAL HISTORY Cardiac catheterization (July 04, 2003) LAD 85% stenosis proximal followed by 30-40% stenosis of the midportion. Left circumflex / obtuse marginal with a 60-70% stenosis in the proximal portion of the obtuse marginal. RCA no significant disease. Status post Cypher stent (3 x 80 in the proximal LAD. 3 x 8) in the proximal LAD. Cardiac catheterization (November 27, 2006). The left main normal. LAD and diagonals without disease. Left circ, 70-80% lesion in the midportion. The mid left circ stented with a Vision stent (3 x 12) with bifurcating disease distal to this which was treated with kissing balloon technique. RCA free of disease. 6. Appendectomy. 7. Tonsillectomy. ALLERGIES NO KNOWN DRUG ALLERGIES. MEDICATIONS Unknown at this time. FAMILY HISTORY Denies premature coronary artery disease or sudden cardiac within the family. SOCIAL HISTORY Denies tobacco, alcohol or drug abuse. REVIEW OF SYSTEMS 14-systems were reviewed including osteopathic pertinent positives and negatives above otherwise negative. PHYSICAL EXAMINATION VITAL SIGNS: Temperature 98.0, heart rate 86, blood pressure 133/89, respirations 16, pulse ox 99% on 2 liters. IN GENERAL: In general the patient appears well. No acute distress, alert awake and oriented x3. HEAD, EYES, EARS, NOSE, AND THROAT: Extraocular muscles intact. Mucous membranes moist. NECK: Supple. No JVD at 45 degrees. No carotid bruits heard bilaterally. Carotid upstrokes brisk in nature. HEART: The heart is regular rate and rhythm. Positive first and second heart sounds with no murmurs, gallops or rubs. LUNGS: Clear to auscultation bilaterally. No wheezes, rales or rhonchi. ABDOMEN: Soft, nontender, nondistended, no organomegaly noted. EXTREMITIES: Show no clubbing, cyanosis or edema. Femoral and distal pulses intact bilaterally. NEUROLOGIC: Neurologically: No focal deficits. SKIN: Warm, dry and intact. OSTEOPATHICS: Osteopathic with no kyphoscoliosis, lordosis or paraspinal tender points. LABORATORY FINDINGS Hemoglobin 15.1, hematocrit 45.7, platelets 317. Potassium 3.8, BUN 18, creatinine 1.3, troponin 0.02. BNP 44. Electrocardiogram (February 15, 2017 at 0216) sinus tachycardia, ST depressions noted inferiorly concerning for ischemia, mild ST elevation of AVR, possibly correlating with multivessel disease. IMPRESSION 1. STEMI alert. 2. Unstable angina / N-STEMI. 3. History of coronary artery disease as above. 4. Hyperlipidemia. 5. Recent abnormal stress test at the [facility] system which is unavailable at this time. RECOMMENDATIONS 1. Mr. Harper's EKG did not show true ST elevations although with the chest pain he was having an EKG changes. I feel that we should still undergo coronary visualization. 2. Risks, benefits and alternatives were explained to him and he consents as such. 3. Postprocedure we will check a 2-D echo to look at his overall left ventricular function, cardiac structure and possible vulvopathies. Thank you for allowing me to see Romaine Harper if there are any questions please do not hesitate to call. Julián Glasgow DO VGP/mh /3:58 AM /8:40 AM MTDDelma
[2017-02-15] MEDS: NITROGLYCERIN 0.4 MG SL 25 TABS/BTL SL PRN (09:05)
--- NOTE | 2017-02-15 09:09 | MA ---
cc: JULIÁN GLASGOW DO DATE: February 15, 2017 PROCEDURE Left heart catheterization, coronary angiogram, moderate sedation 18 minutes PREPROCEDURE DIAGNOSIS STEMI alert, chest pain concerning for coronary insufficiency, EKG changes of ischemia with ST depressions. POSTPROCEDURE DIAGNOSIS Multivessel coronary artery disease. MEDICATIONS 1. Versed 0.5 mg. 1. Fentanyl 25 mcg. 2. Heparin 3300 units. 3. Verapamil 2.5 mg. 4. Nitro 200 mcg. CONTRAST 40 cc Fluoroscopy 2.2 minutes Moderate sedation 18 minutes ESTIMATED BLOOD LOSS 10 cc PROCEDURAL SUMMARY Romaine Harper is a pleasant 71-year-old male who presented to [facility] emergency room on February 15, 2017 with the chief complaint of chest pain. On arrival EKG was done and it was felt that there was ST L this very it was felt that there was possible ST elevations stemming alert was called. 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 EKG was reviewed showing ST depressions and mild elevation of AVR signifying most likely ischemia with multivessel disease or left main disease. He was still having minor chest pain and it was felt that reasonable to proceed with cardiac catheterization due to his concerning EKG and symptoms. Risks, benefits and alternatives were explained to him and he consented as such. He was brought to lab and prepped in the usual sterile fashion. Right radial artery was accessed using a modified Seldinger technique and placement of a 5/6 Guamanian slender sheath. This was easily aspirated and flushed. The JR-4 was advanced over a J-wire to the ascending aorta and across the aortic valve for measurement of left ventricular pressure. This was pulled back across the aortic valve showing no significant gradient of aortic stenosis. JR-4 was used for selective angiography of the right coronary artery. This was exchanged out for a JL-3.5 which was used for selective angiography of the left coronary artery. JL-3.5 was removed over a J-wire. Radial band was placed over the arteriotomy site for hemostasis. The patient was placed on a heparin drip. He left the farm laborer cardiovascularly stable. FINDINGS Left main normal size vessel with adequate reflux. Mild luminal irregularities throughout. It bifurcates into an LAD and circumflex. Left anterior descending normal-size vessel with 90% stenosis in the proximal portion. After the proximal stenosis. There is diffuse 90 to 95% lesions throughout the midportion of the left anterior descending. Throughout the disease section, there appears to be four diagonals with last one being the largest of the four. Left circumflex moderate size vessel. There is a long tubular 80% lesion in the proximal midportion. At the bifurcation of the second obtuse marginal there is a 80% lesion. OM 1 appears to be flush occluded at its ostium and fills with [id number] collaterals. Overall this appears most likely chronic in nature. Right coronary artery moderate size vessel with mild luminal irregularities throughout the proximal to midportion. It is a dominant vessel by nature. At the bifurcation of the posterior lateral branch and posterior descending artery. The posterior lateral branch has an ostial 70% stenosis. LVEDP six. IMPRESSION 1. Unstable angina with EKG changes concerning for acute coronary syndrome. 2. History of coronary artery disease. 3. Multivessel coronary artery disease as above. 4. Hyperlipidemia. RECOMMENDATIONS 1. Mr. Harper presented with chest pain concerning for acute coronary syndrome. On arrival EKG showed ST changes concerning for ischemia. During his cardiac catheterization he was found to have multivessel coronary artery disease. 2. Review of his films shows significant long tubular lesion in of left anterior descending as well as disease in the circumflex and second obtuse marginal. His second obtuse marginal appears to be occluded flush at the ostium. This is more likely chronic in nature and chest pain is most likely from his significant left anterior descending disease. 3. Because of the multivessel coronary artery disease as well as the extensive lesions throughout the left anterior descending which would require multiple stents and most likely knock off a few of the diagonals I feel that he would be a better coronary artery bypass grafting candidate. 4. We will plan to place him on a heparin drip. 5. He will be evaluated by CT surgery. 6. Will check a 2-D echo to look at his overall left ventricular function, cardiac structure and possible valvopathies. 7. We will have case management see him as [facility] and to make sure that he is covered for the procedure. Thank you for allowing me to see Romaine Harper any questions please do not hesitate to call. Julián Glasgow DO [facility]/ /4:09 AM /8:49 AM
[2017-02-15] MEDS ORDERED: HEPARIN SODIUM - IV 10,000 UNITS/10 ML VIAL IV PRN ×2 (10:15)
[2017-02-15 11:34] LABS: APTT (PATIENT) 41.2 SEC (24.3-30.1)
--- NOTE | 2017-02-15 11:40 | PD.CARD.PN ---
Subjective Subjective Remarks STEMI alert this morning Found to have MVCAD Mild chest pain this am, relieved with nitro SL x1 Objective Medications Current Medications Medications (Trade) Dose Ordered Sig/Dalton Route Start Time Stop Time Status Last Admin (NS Flush) 2 ml UNSCH PRN IVF 02/15/17 02:30 02/15/17 08:35 Nitroglycerin/ Dextrose 250 ml @ 3 mls/hr TITRATE PRN IV 02/15/17 02:30 (Aspirin Chew) 81 mg DAILY CHEW 02/15/17 09:00 02/15/17 08:35 (Lipitor) 80 mg HS PO 02/15/17 21:00 (Heparin Inj) 5,000 units UNSCH PRN IV 02/15/17 10:15 (Heparin Inj) 2,500 units UNSCH PRN IV 02/15/17 10:15 Heparin Sodium/ Dextrose 250 ml @ 9.78 mls/hr TITRATE PRN IV 02/15/17 04:15 (Lopressor) 12.5 mg Q12HR PO 02/15/17 09:00 02/15/17 08:35 (Nitrostat Sl) 0.4 mg Q5M PRN SL 02/15/17 04:30 02/15/17 09:05 (Pill Splitter) 1 ea UNSCH PRN OTHER 02/15/17 04:45 (Tylenol) 650 mg Q4H PRN PO 02/15/17 08:45 02/15/17 08:49 Vital Signs / I&O Vital Signs Date Time Temp Pulse Resp B/P (MAP) Pulse Ox O2 Delivery O2 Flow Rate FiO2 02/15/17 11:00 98.3 63 20 84/57 (66) 91 02/15/17 11:00 63 02/15/17 10:00 77 02/15/17 09:00 100 02/15/17 08:00 70 02/15/17 07:00 98.0 91 20 117/70 (86) 96 02/15/17 07:00 73 02/15/17 04:00 97.3 80 16 116/73 (87) 95 02/15/17 02:40 86 16 133/89 (104) 99 02/15/17 02:25 92 16 130/90 (103) 99 Nasal Cannula 2.00 02/15/17 02:18 98.0 102 18 140/83 (102) 02/15/17 02:16 98 2.00 02/15/17 02:16 98 Nasal Cannula 2.00 02/15/17 02:15 99 Nasal Cannula 2.00 02/15/17 02:15 102 16 99 Nasal Cannula 2.00 I/O 02/14/17 02/14/17 02/14/17 02/15/17 02/15/17 02/15/17 07:00 15:00 23:00 07:00 15:00 23:00 Intake Total 8.8 ml Balance 8.8 ml Intake IV Total 8.8 ml Physical Exam GENERAL: AAOx3, NAD SKIN: Warm and dry. HEAD: Atraumatic. Normocephalic. EYES: Pupils equal and round. No scleral icterus. No injection or drainage. ENT: No nasal bleeding or discharge. Mucous membranes pink and moist. NECK: Trachea midline. No JVD. CARDIOVASCULAR: Regular rate and rhythm. RESPIRATORY: No accessory muscle use. Clear to auscultation. Breath sounds equal bilaterally. GASTROINTESTINAL: Abdomen soft, non-tender, nondistended. Hepatic and splenic margins not palpable. MUSCULOSKELETAL: Extremities without clubbing, cyanosis, or edema. No obvious deformities. Right radial no hematoma, neurovascularly intact distally NEUROLOGICAL: Awake and alert. No obvious cranial nerve deficits. Motor grossly within normal limits. Five out of 5 muscle strength in the arms and legs. Normal speech. PSYCHIATRIC: Appropriate mood and affect; insight and judgment normal. Laboratory Laboratory Tests Test 02/15/17 02:10 02/15/17 04:40 White Blood Count 9.9 TH/MM3 10.9 TH/MM3 Red Blood Count 5.11 MIL/MM3 4.75 MIL/MM3 Hemoglobin 15.1 GM/DL 14.7 GM/DL Hematocrit 45.7 % 44.0 % Mean Corpuscular Volume 89.5 FL 92.7 FL Mean Corpuscular Hemoglobin 29.6 PG 30.9 PG Mean Corpuscular Hemoglobin Concent 33.0 % 33.4 % Red Cell Distribution Width 13.6 % 14.4 % Platelet Count 317 TH/MM3 249 TH/MM3 Mean Platelet Volume 8.4 FL 9.4 FL Neutrophils (%) (Auto) 47.4 % Lymphocytes (%) (Auto) 41.4 % Monocytes (%) (Auto) 6.5 % Eosinophils (%) (Auto) 2.6 % Basophils (%) (Auto) 2.1 % Neutrophils # (Auto) 4.7 TH/MM3 Lymphocytes # (Auto) 4.1 TH/MM3 Monocytes # (Auto) 0.6 TH/MM3 Eosinophils # (Auto) 0.3 TH/MM3 Basophils # (Auto) 0.2 TH/MM3 CBC Comment DIFF FINAL Differential Comment Prothrombin Time 10.2 SEC 11.2 SEC Prothromb Time International Ratio 0.9 RATIO 1.0 RATIO Activated Partial Thromboplast Time 26.4 SEC 78.7 SEC Blood Urea Nitrogen 18 MG/DL Creatinine 1.30 MG/DL Random Glucose 127 MG/DL Calcium Level 9.0 MG/DL Magnesium Level 2.5 MG/DL Sodium Level 138 MEQ/L Potassium Level 3.8 MEQ/L Chloride Level 102 MEQ/L Carbon Dioxide Level 26.3 MEQ/L Anion Gap 10 MEQ/L Estimat Glomerular Filtration Rate 55 ML/MIN Total Creatine Kinase 56 U/L Troponin I LESS THAN 0.02 NG/ML B-Type Natriuretic Peptide 44 PG/ML Assessment and Plan Problem List: (1) Multi-vessel coronary artery stenosis ICD Codes: I25.10 - Atherosclerotic heart disease of [place] coronary artery without angina pectoris (2) Coronary artery disease ICD Codes: I25.10 - Atherosclerotic heart disease of [place] coronary artery without angina pectoris (3) Right inguinal hernia ICD Codes: K40.90 - Unilateral inguinal hernia, without obstruction or gangrene , not specified as recurrent Status: Acute Assessment and Plan 1) MVCAD Discussed with CT surgery, will plan for possible Friday 2) Will check troponin for completeness in risk stratification for CABG 3) 2D echo today 4) Con't heparin drip 5) Nitro DAN Julián Sesay DO Feb 15, 2017 11:40
[2017-02-15] MEDS ORDERED: INSULIN REGULAR (IV INFUSION) 100 UNITS in SODIUM CHLORIDE 0.9% INJ 100 ML IV SCH (13:00)
[2017-02-15] MEDS ORDERED: CEFAZOLIN INJ 500 MG in SODIUM CHLORIDE 0.9% IRR BTL 500 ML IRRIGATION SCH (13:00)
[2017-02-15] MEDS ORDERED: PAPAVERINE INJ 60 MG, NITROGLYCERIN INJ 100 MCG, DILTIAZEM INJ 100 MG in SODIUM CHLORID... IRRIGATION SCH (13:00)
[2017-02-15] MEDS ORDERED: CHLORHEXIDINE GLUCONATE 4% SOLN 120 ML BTL TOPICAL SCH (13:00)
[2017-02-15] MEDS ORDERED: METOPROLOL TARTRATE 25 MG TAB PO SCH (13:00)
[2017-02-15] MEDS ORDERED: ceFAZolin 2 GM PREMIX 50 ML IV SCH (13:00)
--- NOTE | 2017-02-15 13:49 | MB ---
cc: CARLO WARD MD DATE OF CONSULTATION: 02/15/2017. REASON FOR CONSULTATION: Multivessel coronary artery disease. REFERRING PHYSICIAN: Dr. Sesay. HISTORY OF PRESENT ILLNESS: Mr. Harper is a very pleasant 71-year gentleman with a known history of coronary artery disease who now presents with a three to four week history of progressive chest pressure which got significantly worse last night. He was seen in the [facility] Emergency Room and transferred here for further management. Upon initial evaluation, he was thought to have an S-T elevation myocardial infarction, and based on this was taken to the cardiac cath lab manager and underwent emergent coronary angiogram which revealed multivessel coronary artery disease. Upon full investigation, it appears that he had evidence of coronary ischemia but not an S-T elevation myocardial infarction. I am now being consulted for surgical revascularization therapy. At the present time, he remains pain-free, hemodynamically stable with no evidence of ongoing ischemia. PAST MEDICAL HISTORY: His past medical history is significant for: 1. Hyperlipidemia. 2. Chronic back pain. 3. Arthritis. 4. Benign prostate hypertrophy. 5. Coronary artery disease s/p PCI. PAST SURGICAL HISTORY: His past surgical history is remarkable for: 1. Coronary angiography in 2003 with noted disease involving the left anterior descending and circumflex at which point he underwent stenting of the proximal left anterior descending. 2. Appendectomy. 3. Tonsillectomy. ALLERGIES: THE PATIENT REPORTS NO KNOWN DRUG ALLERGIES. ADMISSION MEDICATIONS: Unknown at the present time. FAMILY HISTORY: Family history is noncontributory with no evidence of premature coronary artery disease. SOCIAL HISTORY: Denies any history of smoking or alcohol use or illicit drug use. REVIEW OF SYSTEMS: The review of systems is as above, all other parameters are negative. PHYSICAL EXAMINATION: HEIGHT: He is 170 cm tall. WEIGHT: He weighs 81 kilos. VITAL SIGNS: Blood pressure is 84/57 with a heart rate of 63 which is regular, respiratory rate is 18 and he is afebrile. HEAD, EYES, EARS, NOSE, THROAT: Normocephalic and atraumatic. Pupils round and reactive. Extraocular muscles intact. NECK: No cervical lymphadenopathy, carotid bruits or jugular venous distention. CARDIOVASCULAR: Regular rate and rhythm. Normal S1 and S2 without murmurs, rubs or gallops. LUNGS: Clear to auscultation bilaterally with good exchange. ABDOMEN: The abdomen is soft, nontender and nondistended. Normoactive bowel sounds. No hepatosplenomegaly. EXTREMITIES: Bilateral lower extremity pulses are intact without cyanosis, clubbing or edema. No venous varicosities. NEUROLOGIC: Neurologically intact with no focal deficits. IMPRESSION: 1. Unstable angina / NSTEMI. 2. Multivessel coronary artery disease. 3. Hyperlipidemia. PLAN: The clinical and angiographic findings were discussed in detail with the patient today. Therapeutic options available including coronary artery bypass grafting was recommended. I agree with Dr. Sesay that he will maximally benefit from bypass to his distal LAD, OM2, possible OM1 and possible diagonal distributions. The PDA beyond the lesion is quite small and likely would not be bypassable nor will it be of any significant benefit in terms of revascularization. We will obtain a 2-D echo to look at his overall ventricular function, and based on this will plan on proceeding with surgical therapy as described above on Friday morning. In the meantime, will obtain vein mapping, PFTs and carotid duplex imaging. Thank you for allowing me to participate in the care of this patient. Carlo ELIZONDO /1:13 PM /1:33 PM ONI
[2017-02-15 14:38] LABS: BLOOD, URINE NEG (NEG); COMMENT (UR) CULT NOT INDICATED; CULTURE IF INDICATED CULT NOT INDICATED; GLUCOSE,URINE 70 mg/dL (NEG); KETONE, URINE NEG (NEG); NITRITE,URINE NEG (NEG); PH, URINE 6.5 (5.0-8.5); URINE COLOR LIGHT-YELLOW (YELLW/STRAW)
--- NOTE | 2017-02-15 15:44 | ECHRPT ---
Indication: MVCAD CONCLUSIONS The left ventricular systolic function is equrtguh-ic-ghshrao reduced with an estimated ejection fra ction in the range of 35-40%. Normal left ventricular size. Wall thickness is normal. Hypokinetic mid-anterior wall motion. Hypokinetic apical cap wall motion. The left atrial size is jjbd-cz-mbrsazzxti dilated. Trace mitral valve regurgitation. There is mild tricuspid valve regurgitation. The estimated pulmonary arterial pressure is 32 mmHg. Mild pulmonary valve regurgitation. BP: 117 / 70 HR: 86 Rhythm: Sinus Technical Quality:Technically difficult study FINDINGS LEFT VENTRICLE The left ventricular systolic function is jjebnrgx-zj-yxubcry reduced with an estimated ejection fra ction in the range of 35-40%. Normal left ventricular size. Wall thickness is normal. Hypokinetic mid-anterior wall motion. Hypokinetic apical cap wall motion. RIGHT VENTRICLE Normal right ventricular size and systolic function. LEFT ATRIUM The left atrial size is ctbs-ml-mjzyyldutv dilated. RIGHT ATRIUM The right atrial size is normal. ATRIAL SEPTUM Normal atrial septal thickness without atrial level shunting by limited color doppler interrogation. AORTA The aortic root and proximal ascending aorta are normal in size on limited imaging. MITRAL VALVE Trace mitral valve regurgitation. AORTIC VALVE Trileaflet aortic valve. No aortic valve stenosis or regurgitation. TRICUSPID VALVE There is mild tricuspid valve regurgitation. The estimated pulmonary arterial pressure is 32 mmHg. PULMONARY VALVE Mild pulmonary valve regurgitation. VESSELS The inferior vena cava is normal in size. PERICARDIUM No pericardial effusion. Elijah Preciado MD (Electronically Signed) Final Date:15 February 2017 15:44
--- NOTE | 2017-02-15 16:37 | EKG ---
Date Performed: 02/15/2017 Time Performed: 02:16:50 PTAGE: 71 years EKG: SINUS TACHYCARDIA WITH PACS ST DEPRESSION, CONSIDER SUBENDOCARDIAL INJURY Compared to previ ous tracing, these findings are new. Clinical correlation and follow-up tracings reccomended ABNORMAL ECG INTERPRETATION BASED ON A DEFAULT AGE OF 42 YEARS NO PREVIOUS TRACING DOCTOR: Joe Bennett Interpretating Date/Time 02/15/2017 16:47:32
--- NOTE | 2017-02-15 16:40 | EKG ---
Date Performed: 02/15/2017 Time Performed: 07:08:24 PTAGE: 71 years EKG: Sinus rhythm Diffuse T wave inversions anterolaterally with slight ST depressions in AVL. These changes are kaushik tible with ischemia Compared to previous tracing, the ST depressions and T wave inversion inferiorly have resolved. These findings are compatible with some evolutionary pattern of ischemia or perhaps barrios bendocardial injury. Clinical correlation is recommended Abnormal ECG PREVIOUS TRACING : 11/29/2006 01.00 DOCTOR: Joe Bennett Interpretating Date/Time 02/15/2017 16:38:55
--- NOTE | 2017-02-15 18:08 | RADRPT ---
EXAM DATE/TIME: 02/15/2017 17:00 [facility] COMPARISON: No previous studies available for comparison. INDICATIONS : PreOp cardiac surgery. MEDICAL HISTORY : Hypercholesterolemia. Arthritis. Glasses. Transient ischemic attack. Coronary artery disease. Chest pain. Difficulty urinating. Herniated disk. SURGICAL HISTORY : Tonsillectomy. Appendectomy. Coronary stents. Back surgery. ENCOUNTER: Initial ACUITY: 1 day PAIN SCORE: 0/10 LOCATION: Bilateral neck PEAK SYSTOLIC VELOCITIES (cm/sec): ICA/CCA RATIO: Right: 0.8 Left: 1.4 ICA: Right: 74.2 Left: 109.7 CCA: Right: 90.5 Left: 79.0 ECA: Right: 98.4 Left: 104.9 VERTEBRAL: Right: 47.9 antegrade Left: 69.3 antegrade Elevated flow velocities and ICA/CCA ratios have been found to correlate with increased degrees of vessel stenosis, calculated as percentage of diameter relative to a normal segment of distal ICA/CCA FINDINGS: RIGHT CAROTID: No significant stenosis is visualized. Minimal plaque is present. The waveforms are within normal li mits. LEFT CAROTID: No significant stenosis is visualized. Minimal plaque is present. The waveforms are within normal dueñas its. VERTEBRAL ARTERIES: Antegrade flow is seen in both vertebral arteries. MISCELLANEOUS: None. CONCLUSION: Minimal plaque with no evidence of stenosis. Alden Moore MD on February 15, 2017 at 18:06 Board Certified Radiologist. This report was verified electronically.
--- NOTE | 2017-02-15 18:09 | RADRPT ---
EXAM DATE/TIME: 02/15/2017 17:17 [facility] COMPARISON: No previous studies available for comparison. INDICATIONS : PreOp cardiac surgery. MEDICAL HISTORY : Hypercholesterolemia. Arthritis. Glasses. Transient ischemic attack. Coronary artery disease. Chest pain. Difficulty urinating. Herniated disk. SURGICAL HISTORY : Appendectomy.Tonsillectomy. Back surgery. Cornary stents. ENCOUNTER: Initial ACUITY: 1 day PAIN SCORE: 0/10 LOCATION: Bilateral legs. TECHNIQUE: Venous ultrasound of the left and right leg was performed from the inguinal ligament to the proximal calf. Real-time, color Doppler and spectral tracing, compression and augmentation techniques were us ed. FINDINGS: RIGHT LEG: There is normal compressibility of the deep venous system from the inguinal region to the proximal ca lf. No echogenic clot is seen in the lumen of the common femoral, femoral, popliteal, and posterior tibial veins. There is a normal response of the venous system to proximal and distal augmentation an d respiration. LEFT LEG: There is normal compressibility of the deep venous system from the inguinal region to the proximal ca lf. No echogenic clot is seen in the lumen of the common femoral, femoral, popliteal, and posterior tibial veins. There is a normal response of the venous system to proximal and distal augmentation an d respiration. CONCLUSION: Negative study with no deep venous thrombosis. Alden Moore MD on February 15, 2017 at 18:07 Board Certified Radiologist. This report was verified electronically.
--- NOTE | 2017-02-15 18:14 | RADRPT ---
EXAM DATE/TIME: 02/15/2017 17:27 [facility] COMPARISON: No previous studies available for comparison. INDICATIONS : PreOp cardiac sugrery. MEDICAL HISTORY : Hypercholesterolemia. Arthritis. Glasses. Transient ischemic attack. Coronary artery disease. Chest pain. Difficulty urinating. Herniated disk. SURGICAL HISTORY : Appendectomy. Tonsillectomy. ENCOUNTER: Initial ACUITY: 1 day PAIN SCORE: 0/10 LOCATION: Bilateral legs. GREATER SAPHENOUS VEIN THIGH: PROXIMAL: Right 7 mm Left 7 mm MID: Right 2 mm Left 5 mm DISTAL: Right 2 mm Left 5 mm CALF: PROXIMAL: Right 1 mm Left 4 mm MID: Right 1 mm Left 4 mm DISTAL: Right Non-visualized Left 3 mm FINDINGS: The venous system of the lower extremities are patent by color Doppler imaging. Measurements of the leg veins (in mm) are listed above. CONCLUSION: venous mapping study as described. Alden Moore MD on February 15, 2017 at 18:11 Board Certified Radiologist. This report was verified electronically.
[2017-02-15 18:59] LABS: APTT (PATIENT) 46.1 SEC (24.3-30.1)
[2017-02-15] MEDS: ZOLPIDEM TARTRATE 5 MG TAB PO PRN (21:00)
[2017-02-15] MEDS ORDERED: ATORVASTATIN 80 MG TAB PO SCH (21:00)
[2017-02-15] MEDS: MUPIROCIN 2% OINT 1 APPLIC/GM SYR EACH NARE SCH (21:01)
[2017-02-15] MEDS ORDERED: NORC5TAB PO (21:04)
[2017-02-15] MEDS: ACETAMINOPHEN/HYDROcodone 325 MG/5 MG TAB PO PRN (22:21)
[2017-02-16] VITALS (22 sets, daily range): BP systolic 90–107; BP diastolic 49–71; PULSE 54–82; RESP 16–20; TEMP 98.1–98.6; O2SAT 93–98
[2017-02-16 01:46] LABS: AUTOMATED NEUTROPHIL # 6.1 TH/MM3 (1.8-7.7); BASOPHIL # 0.1 TH/MM3 (0-0.2); BASOPHIL % 0.9 % (0.0-2.0); EOSINOPHIL # 0.1 TH/MM3 (0-0.4); EOSINOPHIL % 1.2 % (0.0-4.0); HEMATOCRIT 41.6 % (39.0-51.0); HEMO FLAGS DIFF FINAL; LYMPH % 25.8 % (9.0-44.0); LYMPHOCYTE # 2.5 TH/MM3 (1.0-4.8); MEAN CELL VOLUME 92.4 FL (80.0-100.0); MEAN CORPUSCULAR HGB CONC 33.6 % (32.0-36.0); MONO % 9.2 % (0.0-8.0); NEUT % 62.9 % (16.0-70.0); PLATELET COUNT 232 TH/MM3 (150-450); RED CELL DISTRIBUTION WIDTH 14.5 % (11.6-17.2); WHITE BLOOD COUNT 9.7 TH/MM3 (4.0-11.0)
[2017-02-16 01:47] LABS: APTT (PATIENT) 48.1 SEC (24.3-30.1)
[2017-02-16 01:59] LABS: ALT (GPT) 29 U/L (12-78); ANION GAP 6 MEQ/L (5-15); AST (GOT) 94 U/L (15-37); BICARBONATE 26.5 MEQ/L (21.0-32.0); BLOOD UREA NITROGEN 15 MG/DL (7-18); CHLORIDE 108 MEQ/L (98-107); GLOMERULAR FILTRATION RATE 79 ML/MIN (>89); POTASSIUM 4.2 MEQ/L (3.5-5.1); SODIUM (NA) 140 MEQ/L (136-145)
[2017-02-16 02:02] LABS: ALKALINE PHOSPHATASE 52 U/L (45-117); TOTAL BILIRUBIN ADULT 0.6 MG/DL (0.2-1.0)
[2017-02-16 06:48] LABS: APTT (PATIENT) 34.1 SEC (24.3-30.1)
[2017-02-16] MEDS: MUPIROCIN 2% OINT 1 APPLIC/GM SYR EACH NARE SCH ×2 (08:22→20:07)
[2017-02-16] MEDS: METOPROLOL TARTRATE 25 MG TAB PO SCH ×2 (08:22→20:07)
[2017-02-16] MEDS: ASPIRIN 81 MG CHEW TAB CHEW SCH (08:22)
--- NOTE | 2017-02-16 09:19 | HHI.PR ---
Subjective Remarks Follow-up coronary artery disease, STEMI. Patient has no complaints at this time. Chest pain has resolved. No shortness of breath, nausea, vomiting. Objective Vitals Vital Signs Date Time Temp Pulse Resp B/P (MAP) Pulse Ox O2 Delivery O2 Flow Rate FiO2 02/16/17 09:00 78 02/16/17 08:00 73 02/16/17 07:00 98.4 77 16 92/57 (69) 98 02/16/17 07:00 59 02/16/17 05:42 98.6 73 18 103/60 (74) 93 02/16/17 05:00 55 02/16/17 04:00 65 02/16/17 02:00 55 02/16/17 01:00 54 02/16/17 00:00 64 02/15/17 23:00 98.6 92 18 113/81 (92) 92 02/15/17 23:00 72 02/15/17 22:00 72 02/15/17 21:00 74 02/15/17 20:48 98.1 84 18 137/81 (99) 98 02/15/17 20:00 82 02/15/17 19:00 67 02/15/17 18:00 75 02/15/17 17:00 67 02/15/17 16:00 75 02/15/17 15:00 97.7 68 20 114/75 (88) 98 02/15/17 15:00 70 02/15/17 14:00 66 02/15/17 13:00 76 02/15/17 12:00 61 02/15/17 11:00 98.3 63 20 84/57 (66) 91 02/15/17 11:00 63 02/15/17 10:00 77 I/O 02/15/17 02/15/17 02/15/17 02/16/17 02/16/17 02/16/17 07:00 15:00 23:00 07:00 15:00 23:00 Intake Total 30.8 ml 1266 ml 360 ml Output Total 900 ml 200 ml Balance 30.8 ml 366 ml 160 ml Intake Oral 960 ml 360 ml IV Total 30.8 ml 306 ml Output Urine Total 900 ml 200 ml # Voids 2 # Bowel Movements 3 0 Result Diagram: 02/16/1712202/16/17122 Imaging Last Impressions Chest X-Ray 02/15/17 0220 Signed Impressions: Service Date/Time: Wednesday, February 15, 2017 02:25 - CONCLUSION: Cardiomegaly, engorgement of the central bronchopulmonary markings, and patchy infiltrates in the left lower lung. Gregor Pepe MD Lower Extremity Ultrasound 02/15/17 0000 Signed Impressions: Service Date/Time: Wednesday, February 15, 2017 17:27 - CONCLUSION: venous mapping study as described. Alden Moore MD Carotid Artery Ultrasound 02/15/17 0000 Signed Impressions: Service Date/Time: Wednesday, February 15, 2017 17:00 - CONCLUSION: Minimal plaque with no evidence of stenosis. Alden Moore MD Objective Remarks General: No acute distress. Ambulating in the room. Heart: Regular rate and rhythm. No murmur. Lungs: Clear to auscultation bilaterally. No wheezes, rales, or rhonchi. Breathing is nonlabored. Abdomen: Soft, nontender, nondistended. Extremities: No lower extremity edema. Psych: Alert and oriented. Procedures 02/15/17 cardiac catheterization Urinary Catheter: No Vascular Central Line Catheter: No A/P Problem List: (1) Coronary artery disease ICD Code: I25.10 - Atherosclerotic heart disease of [place] coronary artery without angina pectoris (2) Acute myocardial infarction ICD Code: I21.3 - ST elevation (STEMI) myocardial infarction of unspecified site Status: Acute Assessment and Plan 1. Coronary artery disease, STEMI: Status post cardiac catheterization. Found to have multivessel coronary artery disease. Appreciate cardiology recommendations. Cardiovascular surgery consulted and planning for CABG tomorrow. Continue heparin drip. Continue aspirin, metoprolol. The patient is requesting to have statin discontinued as he has developed myalgias on Lipitor in the past. 2. DVT prophylaxis: Heparin drip. Deshawn Martinez MD Feb 16, 2017 09:18
--- NOTE | 2017-02-16 09:25 | PD.CAR.PN ---
CVT Progress Note Subjective/Hospital Course: RISK SCORES About the STS Risk Calculator Procedure: CAB Only Risk of Mortality: 1.448% Morbidity or Mortality: 15.038% Long Length of Stay: 5.122% Short Length of Stay: 44.527% Permanent Stroke: 1.179% Prolonged Ventilation: 9.37% DSW Infection: 0.403% Renal Failure: 3.411% Reoperation: 5.794% Objective: Vital Signs Date Time Temp Pulse Resp B/P (MAP) Pulse Ox O2 Delivery O2 Flow Rate FiO2 02/16/17 09:00 78 02/16/17 08:00 73 02/16/17 07:00 98.4 77 16 92/57 (69) 98 02/16/17 07:00 59 02/16/17 05:42 98.6 73 18 103/60 (74) 93 02/16/17 05:00 55 02/16/17 04:00 65 02/16/17 02:00 55 02/16/17 01:00 54 02/16/17 00:00 64 02/15/17 23:00 98.6 92 18 113/81 (92) 92 02/15/17 23:00 72 02/15/17 22:00 72 02/15/17 21:00 74 02/15/17 20:48 98.1 84 18 137/81 (99) 98 02/15/17 20:00 82 02/15/17 19:00 67 02/15/17 18:00 75 02/15/17 17:00 67 02/15/17 16:00 75 02/15/17 15:00 97.7 68 20 114/75 (88) 98 02/15/17 15:00 70 02/15/17 14:00 66 02/15/17 13:00 76 02/15/17 12:00 61 02/15/17 11:00 98.3 63 20 84/57 (66) 91 02/15/17 11:00 63 02/15/17 10:00 77 Labs: Laboratory Tests Test 02/16/17 01:23 02/16/17 05:52 White Blood Count 9.7 TH/MM3 (4.0-11.0) Red Blood Count 4.50 MIL/MM3 (4.50-5.90) Hemoglobin 14.0 GM/DL (13.0-17.0) Hematocrit 41.6 % (39.0-51.0) Mean Corpuscular Volume 92.4 FL (80.0-100.0) Mean Corpuscular Hemoglobin 31.0 PG (27.0-34.0) Mean Corpuscular Hemoglobin Concent 33.6 % (32.0-36.0) Red Cell Distribution Width 14.5 % (11.6-17.2) Platelet Count 232 TH/MM3 (150-450) Mean Platelet Volume 8.9 FL (7.0-11.0) Neutrophils (%) (Auto) 62.9 % (16.0-70.0) Lymphocytes (%) (Auto) 25.8 % (9.0-44.0) Monocytes (%) (Auto) 9.2 % (0.0-8.0) Eosinophils (%) (Auto) 1.2 % (0.0-4.0) Basophils (%) (Auto) 0.9 % (0.0-2.0) Neutrophils # (Auto) 6.1 TH/MM3 (1.8-7.7) Lymphocytes # (Auto) 2.5 TH/MM3 (1.0-4.8) Monocytes # (Auto) 0.9 TH/MM3 (0-0.9) Eosinophils # (Auto) 0.1 TH/MM3 (0-0.4) Basophils # (Auto) 0.1 TH/MM3 (0-0.2) CBC Comment DIFF FINAL Differential Comment Activated Partial Thromboplast Time 48.1 SEC (24.3-30.1) 34.1 SEC (24.3-30.1) Blood Urea Nitrogen 15 MG/DL (7-18) Creatinine 0.95 MG/DL (0.60-1.30) Random Glucose 97 MG/DL (74-106) Total Protein 6.0 GM/DL (6.4-8.2) Albumin 3.0 GM/DL (3.4-5.0) Calcium Level 8.1 MG/DL (8.5-10.1) Alkaline Phosphatase 52 U/L (45-117) Aspartate Amino Transf (AST/SGOT) 94 U/L (15-37) Alanine Aminotransferase (ALT/SGPT) 29 U/L (12-78) Total Bilirubin 0.6 MG/DL (0.2-1.0) Sodium Level 140 MEQ/L (136-145) Potassium Level 4.2 MEQ/L (3.5-5.1) Chloride Level 108 MEQ/L (98-107) Carbon Dioxide Level 26.5 MEQ/L (21.0-32.0) Anion Gap 6 MEQ/L (5-15) Estimat Glomerular Filtration Rate 79 ML/MIN (>89) Result Diagram: 02/16/1712202/16/17122 (1) Multi-vessel coronary artery stenosis (2) Coronary artery disease (3) Right inguinal hernia (4) Severe left ventricular systolic dysfunction Problem Qualifiers (1) Coronary artery disease: Cristian Carney MD Feb 16, 2017 09:25
--- NOTE | 2017-02-16 10:23 | PD.CARD.PN ---
Subjective Subjective Remarks No events overnight No chest pain/SOB at this time Did have one episode of angina last night, relieved with nitro Objective Medications Current Medications Medications (Trade) Dose Ordered Sig/Dalton Route Start Time Stop Time Status Last Admin (NS Flush) 2 ml UNSCH PRN IVF 02/15/17 02:30 02/15/17 08:35 Nitroglycerin/ Dextrose 250 ml @ 3 mls/hr TITRATE PRN IV 02/15/17 02:30 (Aspirin Chew) 81 mg DAILY CHEW 02/15/17 09:00 02/16/17 08:22 (Heparin Inj) 5,000 units UNSCH PRN IV 02/15/17 10:15 (Heparin Inj) 2,500 units UNSCH PRN IV 02/15/17 10:15 Heparin Sodium/ Dextrose 250 ml @ 9.78 mls/hr TITRATE PRN IV 02/15/17 04:15 02/16/17 05:36 (Lopressor) 12.5 mg Q12HR PO 02/15/17 09:00 02/16/17 08:22 (Nitrostat Sl) 0.4 mg Q5M PRN SL 02/15/17 04:30 02/15/17 09:05 (Pill Splitter) 1 ea UNSCH PRN OTHER 02/15/17 04:45 (Tylenol) 650 mg Q4H PRN PO 02/15/17 08:45 02/15/17 15:35 Papaverine HCl 60 mg/Nitroglycerin 100 mcg/Diltiazem HCl 100 mg/Sodium Chloride 100 ml @ 0 mls/hr [employer]WORK [employer] IRRIGATION 02/15/17 13:00 02/22/17 12:59 Cefazolin Sodium 500 mg/Sodium Chloride 505 ml @ 0 mls/hr IT NETWORK [employer] IRRIGATION 02/15/17 13:00 02/22/17 12:59 Cefazolin Sodium/ Dextrose 50 ml @ 100 mls/hr IT NETWORK ENGINEER IV 02/15/17 13:00 02/22/17 12:59 (Lopressor) 12.5 mg IT NETWORK ENGINEER PO 02/15/17 13:00 02/22/17 12:59 (Bactroban Nasal 2% Oint) 1 applic BID EACH NARE 02/15/17 21:00 02/20/17 20:59 02/16/17 08:22 (Hibiclens 4% Top Soln) 1 applic IT NETWORK ENGINEER TOPICAL 02/15/17 13:00 02/22/17 12:59 Insulin Human Regular 100 units/ Sodium Chloride 101 ml @ 0 mls/hr IT NETWORK ENGINEER IV 02/15/17 13:00 02/22/17 12:59 (Ambien) 5 mg HS PRN PO 02/15/17 16:45 02/15/17 21:00 (Vivian 5-325 Mg) 1 tab Q4H PRN PO 02/15/17 21:15 02/15/17 22:21 Vital Signs / I&O Vital Signs Date Time Temp Pulse Resp B/P (MAP) Pulse Ox O2 Delivery O2 Flow Rate FiO2 02/16/17 10:00 63 02/16/17 09:00 78 02/16/17 08:00 73 02/16/17 07:00 98.4 77 16 92/57 (69) 98 02/16/17 07:00 59 02/16/17 05:42 98.6 73 18 103/60 (74) 93 02/16/17 05:00 55 02/16/17 04:00 65 02/16/17 02:00 55 02/16/17 01:00 54 02/16/17 00:00 64 02/15/17 23:00 98.6 92 18 113/81 (92) 92 02/15/17 23:00 72 02/15/17 22:00 72 02/15/17 21:00 74 02/15/17 20:48 98.1 84 18 137/81 (99) 98 02/15/17 20:00 82 02/15/17 19:00 67 02/15/17 18:00 75 02/15/17 17:00 67 02/15/17 16:00 75 02/15/17 15:00 97.7 68 20 114/75 (88) 98 02/15/17 15:00 70 02/15/17 14:00 66 02/15/17 13:00 76 02/15/17 12:00 61 02/15/17 11:00 98.3 63 20 84/57 (66) 91 02/15/17 11:00 63 I/O 02/15/17 02/15/17 02/15/17 02/16/17 02/16/17 02/16/17 07:00 15:00 23:00 07:00 15:00 23:00 Intake Total 30.8 ml 1266 ml 360 ml Output Total 900 ml 200 ml Balance 30.8 ml 366 ml 160 ml Intake Oral 960 ml 360 ml IV Total 30.8 ml 306 ml Output Urine Total 900 ml 200 ml # Voids 2 # Bowel Movements 3 0 Physical Exam GENERAL: AAOx3, NAD SKIN: Warm and dry. HEAD: Atraumatic. Normocephalic. EYES: Pupils equal and round. No scleral icterus. No injection or drainage. ENT: No nasal bleeding or discharge. Mucous membranes pink and moist. NECK: Trachea midline. No JVD. CARDIOVASCULAR: Regular rate and rhythm. RESPIRATORY: No accessory muscle use. Clear to auscultation. Breath sounds equal bilaterally. GASTROINTESTINAL: Abdomen soft, non-tender, nondistended. Hepatic and splenic margins not palpable. MUSCULOSKELETAL: Extremities without clubbing, cyanosis, or edema. No obvious deformities. Right radial no hematoma, neurovascularly intact distally NEUROLOGICAL: Awake and alert. No obvious cranial nerve deficits. Motor grossly within normal limits. Five out of 5 muscle strength in the arms and legs. Normal speech. PSYCHIATRIC: Appropriate mood and affect; insight and judgment normal. Laboratory Laboratory Tests Test 02/15/17 10:58 02/15/17 12:30 02/15/17 12:33 02/15/17 18:18 Activated Partial Thromboplast Time 41.2 SEC 46.1 SEC Urine Color LIGHT-YELLOW Urine Turbidity CLEAR Urine pH 6.5 Urine Specific [place] 1.007 Urine Protein NEG mg/dL Urine Glucose (UA) 70 mg/dL Urine Ketones NEG mg/dL Urine Occult Blood NEG Urine Nitrite NEG Urine Bilirubin NEG Urine Urobilinogen LESS THAN 2.0 MG/DL Urine Leukocyte Esterase NEG Microscopic Urinalysis Comment CULT NOT INDICATED Nasal Screen MRSA (PCR) MRSA NOT DETECTED Troponin I 22.80 NG/ML 23.60 NG/ML Test 02/16/17 01:23 02/16/17 05:52 White Blood Count 9.7 TH/MM3 Red Blood Count 4.50 MIL/MM3 Hemoglobin 14.0 GM/DL Hematocrit 41.6 % Mean Corpuscular Volume 92.4 FL Mean Corpuscular Hemoglobin 31.0 PG Mean Corpuscular Hemoglobin Concent 33.6 % Red Cell Distribution Width 14.5 % Platelet Count 232 TH/MM3 Mean Platelet Volume 8.9 FL Neutrophils (%) (Auto) 62.9 % Lymphocytes (%) (Auto) 25.8 % Monocytes (%) (Auto) 9.2 % Eosinophils (%) (Auto) 1.2 % Basophils (%) (Auto) 0.9 % Neutrophils # (Auto) 6.1 TH/MM3 Lymphocytes # (Auto) 2.5 TH/MM3 Monocytes # (Auto) 0.9 TH/MM3 Eosinophils # (Auto) 0.1 TH/MM3 Basophils # (Auto) 0.1 TH/MM3 CBC Comment DIFF FINAL Differential Comment Activated Partial Thromboplast Time 48.1 SEC 34.1 SEC Blood Urea Nitrogen 15 MG/DL Creatinine 0.95 MG/DL Random Glucose 97 MG/DL Total Protein 6.0 GM/DL Albumin 3.0 GM/DL Calcium Level 8.1 MG/DL Alkaline Phosphatase 52 U/L Aspartate Amino Transf (AST/SGOT) 94 U/L Alanine Aminotransferase (ALT/SGPT) 29 U/L Total Bilirubin 0.6 MG/DL Sodium Level 140 MEQ/L Potassium Level 4.2 MEQ/L Chloride Level 108 MEQ/L Carbon Dioxide Level 26.5 MEQ/L Anion Gap 6 MEQ/L Estimat Glomerular Filtration Rate 79 ML/MIN Assessment and Plan Problem List: (1) Multi-vessel coronary artery stenosis ICD Codes: I25.10 - Atherosclerotic heart disease of [place] coronary artery without angina pectoris (2) Coronary artery disease ICD Codes: I25.10 - Atherosclerotic heart disease of [place] coronary artery without angina pectoris (3) Right inguinal hernia ICD Codes: K40.90 - Unilateral inguinal hernia, without obstruction or gangrene , not specified as recurrent Status: Acute (4) Severe left ventricular systolic dysfunction ICD Codes: I51.9 - Heart disease, unspecified Assessment and Plan 1) MVCAD/NSTEMI Discussed with CT surgery, will plan for possible tomorrow 2) EF 35-40% by echo 3) Con't heparin drip 4) Nitro PRN Does have some anxiety, but known severe disease... if chest pain continues, can be placed on nitro drip to help relieve angina Problem Qualifiers (1) Coronary artery disease: Julián Sesay DO Feb 16, 2017 10:23
[2017-02-16] MEDS: ACETAMINOPHEN 325 MG TAB PO PRN ×2 (13:39→20:17)
[2017-02-16 17:25] LABS: APTT (PATIENT) 51.1 SEC (24.3-30.1)
[2017-02-16] MEDS: ZOLPIDEM TARTRATE 5 MG TAB PO PRN (20:06)
[2017-02-16] MEDS: ACETAMINOPHEN/HYDROcodone 325 MG/5 MG TAB PO PRN (23:25)
[2017-02-17] VITALS (15 sets, daily range): BP systolic 79–130; BP diastolic 49–75; PULSE 62–92; RESP 12–20; TEMP 98.1–99.4; O2SAT 95–99
[2017-02-17 00:33] LABS: APTT (PATIENT) 55.7 SEC (24.3-30.1)
[2017-02-17] MEDS ORDERED: CHLORHEXIDINE GLUCONATE 2 % 1 PACK (2 CLOTHS) TOPICAL PRN (02:15)
[2017-02-17] MEDS ORDERED: LACTATED RINGER'S 1000 ML IV PRN (02:15)
[2017-02-17] MEDS ORDERED: SODIUM CHLORID 0.9% 500 ML IV PRN (02:15)
[2017-02-17] MEDS ORDERED: INSULIN HUMAN REGULAR 1,000 UNITS/10 ML VIAL SQ PRN (02:15)
[2017-02-17] MEDS ORDERED: METOPROLOL TARTRATE 25 MG TAB PO PRN (02:15)
[2017-02-17] MEDS ORDERED: POVIDONE IODINE 5% (ANTISEPSIS KIT) 4 APPLICATIONS EACH NARE PRN (02:15)
[2017-02-17] MEDS: NITROGLYCERIN 0.4 MG SL 25 TABS/BTL SL PRN (02:22)
[2017-02-17] MEDS: ACETAMINOPHEN/HYDROcodone 325 MG/5 MG TAB PO PRN ×2 (03:46→21:13)
[2017-02-17] MEDS ORDERED: HEPARIN SODIUM - SQ 10,000 UNITS/ML VIAL ONE (06:13)
[2017-02-17] MEDS ORDERED: ceFAZolin 2 GM PREMIX 50 ML ONE (06:14)
[2017-02-17] MEDS ORDERED: VANCOMYCIN HCL 1000 MG VIAL ONE (06:14)
[2017-02-17] MEDS ORDERED: POTASSIUM CHLORIDE 40 MEQ/20 ML VIAL ONE (06:59)
[2017-02-17] MEDS ORDERED: VECURONIUM BROMIDE 20 MG VIAL ONE (07:22)
[2017-02-17] MEDS ORDERED: AMINOCAPROIC ACID INJ 250 MG/ML 20 ML VIAL ONE (07:22)
[2017-02-17] MEDS ORDERED: BUPIVACAINE LIPOSO PF 1.3% INJ 20 ML, DEXAMETHASONE INJ 4 MG, MORPHINE INJ 8 MG in SODI... IRRIGATION ONE (08:45)
[2017-02-17] MEDS ORDERED: DEXMEDETOMIDINE HCL 200 MCG/2 ML VIAL ONE (10:42)
[2017-02-17] MEDS ORDERED: SODIUM CHLORIDE 0.9% INJ 50 ML ONE (10:42)
[2017-02-17] MEDS ORDERED: ceFAZolin INJ 1,000 MG VIAL ONE (11:14)
--- NOTE | 2017-02-17 11:25 | PD.CAR.PN ---
CVT Progress Note Subjective/Hospital Course: 71/ male hx of CAD prior PCI LAD (2003) presented to ED with chest pain found to have a NSTEMI, underwent cardiac cath by Dr Sesay and found to have multi vessel disease EF 35% PMH: CAD ( prior PCI) chronic back pain , arthritis, BPH surgery: Objective: Vital Signs Date Time Temp Pulse Resp B/P (MAP) Pulse Ox O2 Delivery O2 Flow Rate FiO2 02/17/17 06:00 62 02/17/17 05:00 67 02/17/17 04:00 98.2 65 18 100/49 (66) 96 02/17/17 04:00 65 02/17/17 03:00 70 02/17/17 02:00 71 02/17/17 01:00 65 02/17/17 00:00 98.1 69 20 127/75 (92) 96 02/17/17 00:00 69 02/16/17 23:00 70 02/16/17 22:00 75 02/16/17 21:00 82 02/16/17 20:00 Room Air 02/16/17 20:00 98.4 76 20 107/71 (83) 97 02/16/17 20:00 76 02/16/17 18:00 68 02/16/17 17:00 82 02/16/17 16:00 60 02/16/17 15:00 67 02/16/17 15:00 98.2 69 18 94/49 (64) 98 02/16/17 14:00 58 02/16/17 13:00 75 02/16/17 12:00 73 Labs: Laboratory Tests Test 02/16/17 23:59 Activated Partial Thromboplast Time 55.7 SEC (24.3-30.1) Result Diagram: 02/16/17 01202/16/17 0123 (1) Multi-vessel coronary artery stenosis (2) Coronary artery disease (3) Right inguinal hernia (4) Severe left ventricular systolic dysfunction Problem Qualifiers (1) Coronary artery disease: Kimi Cisneros Feb 17, 2017 11:25
--- NOTE | 2017-02-17 11:30 | HHI.FF ---
Face to Face Verification Diagnosis: (1) Hyperlipemia (2) Chronic back pain (3) Coronary artery disease (4) Multi-vessel coronary artery stenosis (5) Severe left ventricular systolic dysfunction (6) S/P CABG (coronary artery bypass graft) Physical Therapy Order: Evaluate and Treat Home Health Nursing Order: Signs/symptoms of disease process Medication education-adverse effect Wound care and dressing changes Nursing assessment with vital signs Instructions: Heart and Vascular Surgery patients *Special attention to sternal dressing Mandatory frequency Assess and evaluation, 4 days in a row The next week 3X week 2 times a week for 4 weeks 1 time a week for 5 weeks Schedule Heart and Vascular patients for full 60 day certification period Initial visit Review Open Heart Surgery Discharge Instructions (Sternal precautions, Activity, Elastic hose, Incision care, Driving, Incentive spirometry, Smoking, Kreamer, Work and other) Need Betadine to paint incision Medication reconciliation Importance of follow up care/ check on appointments Make calendar record temperature daily When to call [facility] nurse, review instructions, phone list Incentive Spirometry, demonstration Visit 1- Begin discharge instruction for patient family and/ or caregiver using teach back method- Signs and symptoms of infection Disease characteristics Medicines and side effects Foods and nutrition/ appetite Infection control/ hand washing/ hygiene Visit 2- Continue teaching Discharge instructions- include additional information on smoking cessation , sternal dressing (sternal vac) Visit 3- Continue teaching- Cough and deep breathing, incision monitoring. Choose my plate Visit 4- Continue teaching- Discuss limitations Discuss how they are feeling Discuss progress toward goals Remaining visits- continue teaching and monitoring PREVENA Single Use Negative Wound Therapy System Caregiver Instruction Sheet 1. A Prevena dressing system was applied to the chest incision during surgery , to promote wound healing. It works via a suction device (negative pressure wound therapy) to remove low to moderate levels of exudate (drainage) and infectious materials. We recommend that the device stay in place for up to seven days, from day of surgery. 2. Day of Surgery____02/17/17 Day of Removal ____02/24/17 3. The dressing should only be removed by a health career manager. Please arrange removal of device to coincide with Home Health visit and or with Nursing staff at Rehab 4. If skin reddening or irritation of skin occurs, or excessive drainage, please notify the Cardiovascular Surgeons office at [phone]. 5. Light showering is permissible; however the pump should be disconnected and placed in safe location, where it will not get wet. The dressing should not be exposed to direct spray or submerged in water. No bath tub / shower only. Ensure the end of the tubing attached to the dressing is facing down so that water does not enter the top of the tube. 6. To remove Prevena dressing: press purple button to turn off device / remove the suction. Then disconnect the tubing from the pump. The fixation strips should be stretched away from the skin and the dressing lifted at one corner and peeled back until it has been fully removed. 7. After removal, it is ok to shower daily using liquid dial soap and clean wash cloth, rinse and pat dry, and leave incision open to air dry. For any concerns regarding Prevena dressing, and or wounds, please contact Michelle Mane, patient navigator at [phone] or notify the Cardiovascular Surgeons office at [phone]. Incentive spirometry Q1 hr x 10, while awake, also use acapella device hourly whole awake Sternal Breast Bone Precautions: NO pushing or pulling, ( pt must use sternal pillow to support chest with all activities and with coughing ( takes up to 3 months breast bone to heal ) Daily incision care: ok to shower daily, no tub bath. Wash all incisions with liquid dial soap, clean wash cloth to each site, rinse and pat dry. Observe for any signs of infection, such as drainage which is dark yellow, potter, green or foul smelling. Immediately report to the surgeon any drainage from the chest incision, or legs, and for any abnormal drainage from the chest tube sites. Notify surgeon if any temp >101.5 degrees F. When specialty dressing removed/ or if you do not have one, continue to shower daily as above, then rinse and pat incision dry and paint with betadine daily x 5 days. Allow steri strips to fall off if you have any. Avoid lotions, creams, salves, oils, etc. for the first month Please see attached forms for additional instructions regarding post Open Heart specialty wound vacuum dressings. ROMINA or Prevena , Dressing to be removed by Nursing staff on ___/07/12____ F/U appointment: as per DC instructions: PCP in 2 weeks, CV surgeon 2 weeks, Family Support Coordinator 3-4 weeks For any questions regarding incisions/ dressing / meds / post op care or above Symptoms, Friday 8am-5pm Heart & Vascular Surgery Office ( Dr. Carney & Dr. Johnson), After Hours / Nights (5pm -8am) Weekends and Holidays Please call [facility] Cardiac Intermediate [facility] Unit ([facility]) Charge Nurse I have seen patient Romaine Harper on 02/17/17. My clinical findings support the need for the requested home health care services because: Deconditioned w/ increased weakness I certify that my clinical findings support that this patient is homebound because: Post-op weakness Kimi Cisneros Feb 17, 2017 11:30
[2017-02-17] MEDS ORDERED: MIDAZOLAM HCL 2 MG/2 ML VIAL IV ONE (11:38)
[2017-02-17] MEDS ORDERED: SODIUM CHLOR 0.9% 250 ML INJ 750 ML IV ONE (11:38)
[2017-02-17] MEDS ORDERED: LACTATED RINGER'S 1000 ML INJ 2,000 ML IV ONE (11:38)
[2017-02-17] MEDS ORDERED: SODIUM CHLORIDE 0.9% INJ 100 ML IV ONE (11:38)
[2017-02-17] MEDS ORDERED: NORMOSOL R INJ 2,000 ML IV ONE (11:38)
[2017-02-17] MEDS ORDERED: LACTATED RINGER'S 1000 ML INJ 500 ML IV PRN (12:02)
[2017-02-17] MEDS ORDERED: PHENYLEPH/NS 1000 MCG/10 ML SYR IV ONE (12:10)
[2017-02-17] MEDS ORDERED: ePHEDrine/NS 25 MG/5 ML SYR IV ONE (12:10)
[2017-02-17] MEDS ORDERED: PROTAMINE SULFATE 250 MG/25 ML VIAL IV ONE (12:10)
[2017-02-17] MEDS ORDERED: PHENYLEPHRINE HCL 10 MG/ML VIAL IV ONE (12:10)
[2017-02-17] MEDS ORDERED: CALCIUM CHLORIDE 10% SOLN 1 GRAM/10 ML SYR IV ONE (12:10)
[2017-02-17] MEDS ORDERED: VECURONIUM BROMIDE 10 MG VIAL IV ONE (12:10)
[2017-02-17] MEDS ORDERED: HEPARIN SODIUM - IV 10,000 UNITS/10 ML VIAL IV ONE (12:10)
[2017-02-17] MEDS ORDERED: FUROSEMIDE 100 MG/10 ML VIAL IV PUSH ONE (12:10)
[2017-02-17] MEDS ORDERED: AMINOCAPROIC ACID INJ 250 MG/ML 20 ML VIAL IV ONE (12:10)
[2017-02-17] MEDS ORDERED: MAGNESIUM SULFATE 1000 MG/2 ML VIAL (PED) IV ONE (12:10)
[2017-02-17] MEDS ORDERED: CALCIUM CHLORIDE 10% 1 GRAM/10 ML VIAL IV PRN (12:15)
[2017-02-17] MEDS ORDERED: DEXTROSE 50% IN WATER 50 ML VIAL(D50) IV PUSH PRN (12:15)
[2017-02-17] MEDS ORDERED: MORPHINE SULFATE 4 MG/ML INJ IV PRN (12:15)
[2017-02-17] MEDS ORDERED: ACETAMINOPHEN 650 MG SUPP RECTAL PRN (12:15)
[2017-02-17] MEDS ORDERED: CALCIUM CHLORIDE INJ 1 GM in SODIUM CHLORIDE 0.9% INJ 100 ML IV PRN (12:15)
[2017-02-17] MEDS ORDERED: MAGNESIUM SULFATE INJ 2 GM in SODIUM CHLORIDE 0.9% INJ 100 ML IV PRN ×4 (12:15)
[2017-02-17] MEDS ORDERED: CLEVIDIPINE INJ 50 ML IV PRN (12:15)
[2017-02-17] MEDS ORDERED: ALBUMIN HUMAN 5% 12.5 GM/250 ML BOTTLE IV PRN (12:15)
[2017-02-17] MEDS ORDERED: ONDANSETRON HCL 4 MG/2 ML VIAL IV PUSH PRN (12:15)
[2017-02-17] MEDS ORDERED: POTASSIUM CHLOR 20 MEQ PREMIX 100 ML IV PRN ×2 (12:15)
[2017-02-17] MEDS ORDERED: DOPamine INJ PREMIX 500 ML IV PRN (12:15)
[2017-02-17] MEDS ORDERED: POTASSIUM CHLORIDE 20 MEQ CONTROLLED RELEASE TAB PO PRN ×2 (12:15)
[2017-02-17] MEDS ORDERED: RESP: RACEPINEPHRINE 2.25% 0.5 ML NEB NEB PRN ×2 (12:15→14:15)
[2017-02-17] MEDS ORDERED: Post-op Orders (for Pharmacy) MISC OTHER ONE (12:15)
[2017-02-17] MEDS ORDERED: RESP: ALBUTEROL 2.5 MG/IPRATROPIUM 0.5 MG NEB (PRN) NEB ×2 (12:15→14:15)
[2017-02-17] MEDS ORDERED: MEPERIDINE HCL 25 MG/ML VIAL IV PRN (12:15)
[2017-02-17] MEDS ORDERED: METOPROLOL TARTRATE 5 MG/5 ML VIAL IV PUSH PRN (12:15)
[2017-02-17] MEDS ORDERED: SODIUM BICARBONATE 8.4% SOLN 50 MEQ/50 ML VIAL IV PUSH PRN ×2 (12:15)
[2017-02-17] MEDS ORDERED: hydrALAZINE HCL 20 MG/ML VIAL IV PRN (12:15)
[2017-02-17] MEDS ORDERED: SODIUM CHLORIDE 0.9% FLUSH 10 ML FLUSH IV FLUSH PRN (12:15)
--- NOTE | 2017-02-17 12:15 | PD.OP ---
cc: Cristian Carney MD; Julián Sesay DO Operative Report Date of Surgery: Feb 17, 2017 Preoperative Diagnosis: Postoperative Diagnosis: Procedure: 1. Urgent Off-pump Coronary Artery Bypass Grafting x 3 with Left Internal Mammary Artery (HDZ) to the Left Anterior Descending (LAD), reverse saphenous vein graft to the OM1, and reverse saphenous vein graft to the OM2 2. Right Leg Endoscopic Vein [place] 3. Intraoperative Vein Mapping 4. Multi-Level Intercostal Nerve Block. Surgeon: Cristian Carney Corporate Strategy Intern(s): Fidelia Jones Operation and Findings: PREPROCEDURE DIAGNOSES 1. Severe Multi Vessel Coronary Artery Disease. 2. Acute Myocardial Infarction (NSTEMI) 3. Severe Left Ventricular Dysfunction POSTPROCEDURE DIAGNOSES Same SURGICAL PROCEDURE 1. Urgent Off-pump Coronary Artery Bypass Grafting x 3 with Left Internal Mammary Artery (HDZ) to the Left Anterior Descending (LAD), reverse saphenous vein graft to the OM1, and reverse saphenous vein graft to the OM2 2. Right Leg Endoscopic Vein [place] 3. Intraoperative Vein Mapping 4. Multi-Level Intercostal Nerve Block. SURGEON Cristian Carney MD CONTENT CHECKER CARY Laurent ANESTHESIA General endotracheal SOFTWARE DEVELOPER MANAGER SILVANO Mark MD PREPARATION ChloraPrep. COUNTS Needle, sponge, and instrument counts were correct. DRAINS Two 32-[place] mediastinal tubes. COMPLICATIONS None. INDICATIONS FOR PROCEDURE The patient is a 71-year-old presenting with chest pain. Patient was noted to have AMI and multi-vessel coronary artery disease. The patient is being brought to the operating room for surgical revascularization therapy. PROCEDURE Patient was brought to the operating room and placed supine on the OR table. Following the induction of adequate general endotracheal anesthesia and placement of appropriate monitoring devices, intraoperative vein mapping was performed which revealed suitable-caliber conduit in the right thigh with large caliber conduit in the leftt leg. The patient was then prepped and draped in standard sterile fashion. Next, 2500 units of intravenous heparin was given. The right greater saphenous vein was harvested endoscopically. This appeared to be a useable-caliber conduit. Simultaneously, a median sternotomy was performed and the left internal mammary artery dissected free off the posterior sternal table. The patient was systemically heparinized and anticoagulation monitored by serial ACT measurements. The internal mammary artery had good pulsatile flow in it and was a decent-caliber conduit. The pericardium was then divided in the midline, the cradle created and targets analyzed. At this point, all anastomoses were performed in a beating-heart fashion using the Maquet stabilizing system. The left internal mammary artery was anastomosed to the LAD (2 mm) in an end-to-side fashion using 7-0 Prolene. The next segment was anastomosed to the OM1 (1.75 mm) in an end-to-side fashion using a running 7-0 Prolene. The final segment was anastomosed to the OM2 (2 mm) in an end-to-side fashion using 7-0 Prolene. The diagonal territory was explored and deemed to be non-bypassable. The proximal anastomoses were then constructed to the ascending aorta in a running manner using 6-0 Prolene. All anastomotic sites were inspected and appeared to be hemostatic and patent. Protamine solution was given. Strict hemostasis was assured. The closure was undertaken. 2 chest tubes were placed. The pericardium was reapproximated in the midline. Bilateral multi- level intercostal nerve block was performed using Exparel solution. The sternum was approximated using sternal wires. The muscular and fascial layer were then closed in 3 layers. The endoscopic vein harvest site was closed in 2 layers. The patient tolerated the procedure well and was transferred to CVICU in stable condition. Cristian Carney MD Feb 17, 2017 12:15
[2017-02-17] MEDS ORDERED: DEXTROSE 50% IN WATER 50 ML SYRINGE ONE ×2 (12:42→12:44)
[2017-02-17] MEDS ORDERED: POTASSIUM CHLOR 20 MEQ PREMIX 200 ML ONE (12:44)
[2017-02-17] MEDS: POTASSIUM CHLOR 20 MEQ PREMIX 100 ML IV PRN ×2 (12:59→14:19)
[2017-02-17] MEDS ORDERED: DEXMEDETOMIDINE INJ 200 MCG in SODIUM CHLORIDE 0.9% INJ 50 ML IV PRN (13:00)
[2017-02-17] MEDS ORDERED: INSULIN REGULAR (IV INFUSION) 100 UNITS in SODIUM CHLORIDE 0.9% INJ 99 ML IV SCH (13:00)
[2017-02-17] MEDS ORDERED: NITROGLYCERIN-D5W 50 MG/250 ML 250 ML IV PRN (13:00)
[2017-02-17] MEDS: ACETAMINOPHEN 1000 MG/100 ML 100 ML IV SCH ×2 (13:05→19:08)
--- NOTE | 2017-02-17 13:40 | RADRPT ---
EXAM DATE/TIME: 02/17/2017 13:07 [facility] COMPARISON: CHEST SINGLE AP, February 15, 2017, 2:25. INDICATIONS : Post CABG. MEDICAL HISTORY : Hypercholesterolemia. Arthritis. Glasses. Transient ischemic attack. Coronary artery SURGICAL HISTORY : Tonsillectomy. Appendectomy. Coronary stents. Back surgery. ENCOUNTER: Initial ACUITY: 1 day PAIN SCORE: 10/10 LOCATION: Bilateral chest FINDINGS: Interval median sternotomy and postsurgical features of cardiac surgery. Mediastinal drain and left-s ided chest tube in place. Left subclavian central line with tip in the central SVC. No significant pn eumothorax. Left lower lung zone pleural-parenchymal and mild right lower lung zone airspace disease. Cardiomediastinal contours are stable. Remainder of the exam is unchanged. CONCLUSION: 1. Expected postoperative changes of recent CABG with tubes and lines, as above. 2. Mild right basal atelectasis and left lower lung zone pleural-parenchymal opacities. No pneumothor ax. Jose Woodruff MD on February 17, 2017 at 13:36 Board Certified Radiologist. This report was verified electronically.
[2017-02-17] MEDS: PHENYLEPHRINE INJ 40 MG in DEXTROSE 5% IN WATE 500 ML INJ 496 ML IV PRN ×2 (14:20)
[2017-02-17] MEDS: DOBUTamine PREMIX DRIP 250 ML IV SCH (14:20)
[2017-02-17] MEDS: KETOROLAC TROMETHAMINE 30 MG/ML (IVP) VIAL IV PUSH PRN (14:56)
[2017-02-17] MEDS ORDERED: RESP: ALBUTEROL 2.5 MG/IPRATROPIUM 0.5 MG NEB (SCH) NEB (16:00)
[2017-02-17] MEDS: RESP: ALBUTEROL 2.5 MG/IPRATROPIUM 0.5 MG NEB (SCH) NEB ×2 (16:43→20:56)
--- NOTE | 2017-02-17 17:15 | PD.CARD.PN ---
Subjective Subjective Remarks Post CABG, doing well Extubated and up to the chair Objective Medications Current Medications Medications (Trade) Dose Ordered Sig/D[place]ton Route Start Time Stop Time Status Last Admin (Pill Splitter) 1 ea UNSCH PRN OTHER 02/15/17 04:45 (Bactroban Nasal 2% Oint) 1 applic BID EACH NARE 02/15/17 21:00 02/20/17 20:59 02/16/17 20:07 Insulin Human Regular 100 units/ Sodium Chloride 101 ml @ 0 mls/hr GEOSCIENCE PROFESSOR IV 02/15/17 13:00 02/22/17 12:59 02/17/17 08:10 (Ambien) 5 mg HS PRN PO 02/15/17 16:45 02/16/17 20:06 Lactated Ringer's 1,000 ml @ 30 mls/hr Q24H PRN IV 02/17/17 02:15 02/20/17 02:14 (Betadine 5% Antisepsis Kit) 1 applic GEOSCIENCE PROFESSOR PRN EACH NARE 02/17/17 02:15 02/20/17 02:14 (NovoLIN R INJ) See Protocol Table ... GEOSCIENCE PROFESSOR PRN SQ 02/17/17 02:15 02/20/17 02:14 (NS Flush) 2 ml BID IV FLUSH 02/17/17 12:15 (NS Flush) 2 ml UNSCH PRN IV FLUSH 02/17/17 12:15 Dexmedetomidine HCl 200 mcg/ Sodium Chloride 52 ml @ 4.21 mls/hr TITRATE PRN IV 02/17/17 13:00 Nitroglycerin/ Dextrose 250 ml @ 1.5 mls/hr TITRATE PRN IV 02/17/17 13:00 Dobutamine HCl/ Dextrose 250 ml @ 12.15 mls/ hr [id number] IV 02/17/17 13:00 02/17/17 14:20 Dopamine HCl/ Dextrose 500 ml @ 9.113 mls/ hr TITRATE PRN IV 02/17/17 12:15 Phenylephrine HCl 40 mg/Dextrose 500 ml @ 30 mls/hr TITRATE PRN IV 02/17/17 13:00 02/17/17 14:20 Clevidipine 50 ml @ 2 mls/hr TITRATE PRN IV 02/17/17 12:15 (Albumin 5% Inj) 12.5 gm UNSCH PRN IV 02/17/17 12:15 Lactated Ringer's 500 ml @ 500 mls/hr Q1H PRN IV 02/17/17 12:02 (Aspirin Chew) 81 mg DAILY PO 02/18/17 09:00 (Plavix) 75 mg DAILY PO 02/18/17 09:00 (Protonix) 40 mg DAILY@06 PO 02/18/17 06:00 (Cordarone) 400 mg Q12HR PO 02/17/17 21:00 (Tylenol) 650 mg Q4H PRN PO 02/17/17 12:15 (Tylenol Supp) 650 mg Q4H PRN RECTAL 02/17/17 12:15 Acetaminophen 100 ml @ 400 mls/hr Q6H IV 02/17/17 13:00 02/18/17 07:14 02/17/17 13:05 (Morphine Inj) 1 mg Q10M PRN IV 02/17/17 12:15 (Demerol Inj) 12.5 mg Q4H PRN IV 02/17/17 12:15 ([place] 5-325 Mg) 1 tab Q3H PRN PO 02/17/17 12:15 (Toradol Inj) 15 mg Q6H PRN IV PUSH 02/17/17 12:15 02/19/17 12:14 02/17/17 14:56 (fentaNYL INJ) 25 mcg Q1H PRN IV 02/17/17 12:15 (Zofran Inj) 4 mg Q6H PRN IV PUSH 02/17/17 12:15 (Apresoline Inj) 10 mg Q4H PRN IV 02/17/17 12:15 (Lopressor Inj) 2.5 mg Q1H PRN IV PUSH 02/17/17 12:15 Potassium Chloride 100 ml @ 50 mls/hr UNSCH PRN IV 02/17/17 12:15 Potassium Chloride 100 ml @ 50 mls/hr UNSCH PRN IV 02/17/17 12:15 (KCl) 20 meq UNSCH PRN PO 02/17/17 12:15 (KCl) 40 meq UNSCH PRN PO 02/17/17 12:15 Magnesium Sulfate 2 gm/Sodium Chloride 104 ml @ 100 mls/hr UNSCH PRN IV 02/17/17 12:15 Magnesium Sulfate 2 gm/Sodium Chloride 104 ml @ 50 mls/hr UNSCH PRN IV 02/17/17 12:15 Calcium Chloride 1 gm/Sodium Chloride 110 ml @ 100 mls/hr UNSCH PRN IV 02/17/17 12:15 (Calcium Chloride Inj) 0.5 gm UNSCH PRN IV 02/17/17 12:15 Insulin Human Regular 100 units/ Sodium Chloride 100 ml @ 3 mls/hr TITRATE IV 02/17/17 13:00 (D50w (Vial) Inj) 50 ml UNSCH PRN IV PUSH 02/17/17 12:15 02/17/17 12:45 Cefazolin Sodium/ Dextrose 50 ml @ 100 mls/hr Q8H IV 02/17/17 16:00 02/19/17 00:29 (Sodium Bicarbonate 8.4% Inj) 50 meq UNSCH PRN IV PUSH 02/17/17 12:15 (Sodium Bicarbonate 8.4% Inj) 100 meq UNSCH PRN IV PUSH 02/17/17 12:15 (Duoneb Neb) 1 ampule Q6HR NEB NEB 02/17/17 16:00 02/17/17 16:43 (Duoneb Neb) 1 ampule Q2HR NEB PRN NEB 02/17/17 12:15 (Racepinephrine 2.25% Neb) 0.5 ml UNSCH X1 PRN NEB 02/17/17 12:15 02/18/17 12:14 Vital Signs / I&O Vital Signs Date Time Temp Pulse Resp B/P (MAP) Pulse Ox O2 Delivery O2 Flow Rate FiO2 02/17/17 16:43 99 Nasal Cannula 4.00 02/17/17 15:10 130/74 02/17/17 15:00 85 02/17/17 15:00 99.4 85 18 130/74 (92) 98 02/17/17 14:20 79 02/17/17 14:20 79 87/50 02/17/17 13:00 95 4 02/17/17 13:00 92 02/17/17 12:45 40 02/17/17 12:34 99 60 02/17/17 12:33 79 02/17/17 12:33 98.5 79 12 86/57 (67) 99 87/50 (62) 02/17/17 12:33 50 02/17/17 12:33 99 Mechanical Ventilator 50 02/17/17 06:00 62 9/25/17 05:00 67 02/17/17 04:00 98.2 65 18 100/49 (66) 96 02/17/17 04:00 65 02/17/17 03:00 70 02/17/17 02:00 71 02/17/17 01:00 65 02/17/17 00:00 98.1 69 20 127/75 (92) 96 02/17/17 00:00 69 02/16/17 23:00 70 02/16/17 22:00 75 02/16/17 21:00 82 02/16/17 20:00 Room Air 02/16/17 20:00 98.4 76 20 107/71 (83) 97 02/16/17 20:00 76 02/16/17 18:00 68 I/O 02/16/17 02/16/17 02/16/17 02/17/17 02/17/17 02/17/17 07:00 15:00 23:00 07:00 15:00 23:00 Intake Total 360 ml 1087 ml 590 ml 5100 ml Output Total 200 ml 800 ml 2200 ml Balance 160 ml 1087 ml -210 ml 2900 ml Intake Oral 360 ml 960 ml 480 ml IV Total 127 ml 110 ml 100 ml Autotransfusion 500 ml Other 4500 ml Output Urine Total 200 ml 800 ml 1200 ml Estimated Blood Loss 1000 ml # Voids 2 3 # Bowel Movements 0 0 Physical Exam GENERAL: AAOx3, NAD SKIN: Warm and dry. HEAD: Atraumatic. Normocephalic. EYES: Pupils equal and round. No scleral icterus. No injection or drainage. ENT: No nasal bleeding or discharge. Mucous membranes pink and moist. NECK: Trachea midline. No JVD. CARDIOVASCULAR: Regular rate and rhythm. Sternotomy with wound vac RESPIRATORY: No accessory muscle use. Clear to auscultation. Breath sounds equal bilaterally. GASTROINTESTINAL: Abdomen soft, non-tender, nondistended. Hepatic and splenic margins not palpable. MUSCULOSKELETAL: Extremities without clubbing, cyanosis, or edema. No obvious deformities. Right radial no hematoma, neurovascularly intact distally NEUROLOGICAL: Awake and alert. No obvious cranial nerve deficits. Motor grossly within normal limits. Five out of 5 muscle strength in the arms and legs. Normal speech. PSYCHIATRIC: Appropriate mood and affect; insight and judgment normal. Laboratory Laboratory Tests Test 02/16/17 23:59 Activated Partial Thromboplast Time 55.7 SEC Assessment and Plan Problem List: (1) Multi-vessel coronary artery stenosis ICD Codes: I25.10 - Atherosclerotic heart disease of [place] coronary artery without angina pectoris (2) Coronary artery disease ICD Codes: I25.10 - Atherosclerotic heart disease of [place] coronary artery without angina pectoris (3) Right inguinal hernia ICD Codes: K40.90 - Unilateral inguinal hernia, without obstruction or gangrene , not specified as recurrent Status: Acute (4) Severe left ventricular systolic dysfunction ICD Codes: I51.9 - Heart disease, unspecified Assessment and Plan 1) MVCAD/NSTEMI s/p CABG POD #0 HDZ to LAD SVG to OM1 SVG to OM2 2) EF 35-40% by echo 3) Dawson drip, wean as possible 4) ASA/Plavix/Amio Eventual BB Problem Qualifiers (1) Coronary artery disease: Julián Sesay DO Feb 17, 2017 17:15
[2017-02-17] MEDS: ceFAZolin 2 GM PREMIX 50 ML IV SCH (17:33)
[2017-02-17] MEDS ORDERED: ALPRAZolam 0.5 MG TAB PO PRN (19:00)
[2017-02-17] MEDS: MUPIROCIN 2% OINT 1 APPLIC/GM SYR EACH NARE SCH (21:00)
[2017-02-17] MEDS: AMIODARONE 200 MG TAB PO SCH (21:13)
[2017-02-17] MEDS: SODIUM CHLORIDE 0.9% FLUSH 10 ML FLUSH IV FLUSH SCH (21:18)
[2017-02-18] VITALS (18 sets, daily range): BP systolic 82–108; BP diastolic 42–56; PULSE 68–110; RESP 16–20; TEMP 98–98.7; O2SAT 95–99
[2017-02-18] MEDS: ACETAMINOPHEN 1000 MG/100 ML 100 ML IV SCH ×2 (00:10→06:48)
[2017-02-18] MEDS: ZOLPIDEM TARTRATE 5 MG TAB PO PRN (01:38)
[2017-02-18] MEDS: PHENYLEPHRINE INJ 40 MG in DEXTROSE 5% IN WATE 500 ML INJ 496 ML IV PRN ×2 (04:05)
[2017-02-18] MEDS: ACETAMINOPHEN/HYDROcodone 325 MG/5 MG TAB PO PRN ×2 (04:37→20:59)
[2017-02-18] MEDS: PANTOPRAZOLE SOD 40 MG DELAYED RELEASE TAB PO SCH (04:38)
[2017-02-18] MEDS: RESP: ALBUTEROL 2.5 MG/IPRATROPIUM 0.5 MG NEB (SCH) NEB ×3 (04:42→20:11)
[2017-02-18 05:15] LABS: HEMATOCRIT 32.3 % (39.0-51.0); MEAN CELL VOLUME 92.3 FL (80.0-100.0); MEAN CORPUSCULAR HEMOGLOBIN 30.7 PG (27.0-34.0); MEAN CORPUSCULAR HGB CONC 33.2 % (32.0-36.0); PLATELET COUNT 227 TH/MM3 (150-450); REVIEW FLAG FINAL; WHITE BLOOD COUNT 14.9 TH/MM3 (4.0-11.0)
[2017-02-18 05:30] LABS: BICARBONATE 22.1 MEQ/L (21.0-32.0); POTASSIUM 4.2 MEQ/L (3.5-5.1)
--- NOTE | 2017-02-18 05:57 | RADRPT ---
EXAM DATE/TIME: 02/18/2017 04:56 [facility] COMPARISON: CHEST SINGLE AP, February 17, 2017, 13:07. INDICATIONS : Short of breath. MEDICAL HISTORY : Hypercholesterolemia. Arthritis. Glasses. Transient ischemic attack. SURGICAL HISTORY : Coronary stents. ENCOUNTER: Subsequent ACUITY: 4 - 6 days PAIN SCORE: 0/10 LOCATION: Bilateral chest FINDINGS: A single view of the chest demonstrates left central line in superior vena cava. Left chest tube pres ent without pneumothorax. Improved basilar airspace disease compared with February 17. Central chest tube also present. Postoperative median sternotomy. Remote proximal left humeral fracture. CONCLUSION: 1. Improved basilar airspace disease since February 17. Central and left chest tubes present without pneumothorax. Sherwin Soto MD on February 18, 2017 at 5:54 Board Certified Radiologist. This report was verified electronically.
[2017-02-18] MEDS ORDERED: MULTIVITAMIN INJ 10 ML, THIAMINE INJ 500 MG, FOLIC ACID INJ 1 MG in SODIUM CHLORID 0.9%... IV SCH (09:00)
[2017-02-18] MEDS: DOBUTamine PREMIX DRIP 250 ML IV SCH (09:35)
[2017-02-18] MEDS: CLOPIDOGREL 75 MG TAB PO SCH (09:49)
[2017-02-18] MEDS: AMIODARONE 200 MG TAB PO SCH ×2 (09:49→20:59)
[2017-02-18] MEDS: ASPIRIN 81 MG CHEW TAB PO SCH (09:49)
[2017-02-18] MEDS: ceFAZolin 2 GM PREMIX 50 ML IV SCH ×3 (09:50→17:01)
[2017-02-18] MEDS: SODIUM CHLORIDE 0.9% FLUSH 10 ML FLUSH IV FLUSH SCH ×2 (09:50→21:00)
[2017-02-18] MEDS ORDERED: BISACODYL 10 MG SUPP RECTAL PRN (10:00)
[2017-02-18] MEDS ORDERED: SOD PHOSPHATE/SOD BIPHOSPHATE (ADULT) ENEMA 133ML RECTAL PRN (10:00)
[2017-02-18] MEDS ORDERED: DEXTROSE 50% IN WATER 50 ML VIAL(D50) IV PRN (10:00)
[2017-02-18] MEDS ORDERED: GLUCAGON 1 MG/ML VIAL OTHER PRN (10:00)
--- NOTE | 2017-02-18 10:31 | PD.CAR.PN ---
CVT Progress Note Subjective/Hospital Course: 71/ male hx of CAD prior PCI LAD (2003) presented to ED with chest pain found to have a NSTEMI, underwent cardiac cath by Dr Sesay and found to have multi vessel disease EF 35% PMH: CAD ( prior PCI) chronic back pain , arthritis, BPH surgery: 02/17 Urgent Off-pump Coronary Artery Bypass Grafting x 3 with Left Internal Mammary Artery (HDZ) to the Left Anterior Descending (LAD), reverse saphenous vein graft to the OM1, and reverse saphenous vein graft to the OM2 Right Leg Endoscopic Vein [place] extubated after surgery 02/18 pt up in chair, weaning off the dobutamine, then wean off Dawson gtt hold on starting BB today , will need to recheck LFT in am , if improved will start statin OOB, ambulate as tolerated , transfer to stepdown later today when off all pressors and BP stable Objective: GENERAL: SKIN: Warm and dry. prevena dressing to chest, dariela wrap to left leg HEAD: Normocephalic. EYES: No scleral icterus. No injection or drainage. NECK: Supple, trachea midline. No JVD or lymphadenopathy. CARDIOVASCULAR: Regular rate and rhythm without murmurs, gallops, or rubs. RESPIRATORY: Breath sounds equal bilaterally. No accessory muscle use. diminished in bases, chest tube to wall suction/ drained 390cc/ 12 hrs , no air leak GASTROINTESTINAL: Abdomen soft, non-tender, nondistended. MUSCULOSKELETAL: No cyanosis, or edema. BACK: Nontender without obvious deformity. No CVA tenderness. Vital Signs Date Time Temp Pulse Resp B/P (MAP) Pulse Ox O2 Delivery O2 Flow Rate FiO2 02/18/17 08:00 94 Nasal Cannula 3.00 02/18/17 07:00 74 02/18/17 07:00 98.2 74 16 85/42 (56) 98 108/56 (73) 02/18/17 05:40 20 02/18/17 04:05 85 102/50 02/18/17 04:00 98.1 86 20 92/53 (66) 98 105/48 (67) 02/18/17 03:40 84 02/18/17 00:45 20 02/18/17 00:00 80 02/18/17 00:00 98.1 68 20 89/50 (63) 96 102/51 (68) 02/17/17 20:56 98 Nasal Cannula 3.00 02/17/17 20:00 98.4 68 20 79/50 (60) 98 106/54 (71) 02/17/17 19:30 97 Nasal Cannula 3.00 02/17/17 19:00 75 02/17/17 18:08 106/58 02/17/17 17:33 70 91/49 02/17/17 16:43 99 Nasal Cannula 4.00 02/17/17 15:10 130/74 02/17/17 15:00 85 02/17/17 15:00 99.4 85 18 130/74 (92) 98 02/17/17 14:20 79 02/17/17 14:20 79 87/50 02/17/17 13:00 95 4 02/17/17 13:00 92 02/17/17 12:45 40 02/17/17 12:34 99 60 02/17/17 12:33 79 02/17/17 12:33 98.5 79 12 86/57 (67) 99 87/50 (62) 02/17/17 12:33 50 02/17/17 12:33 99 Mechanical Ventilator 50 Labs: Laboratory Tests Test 02/18/17 04:40 White Blood Count 14.9 TH/MM3 (4.0-11.0) Red Blood Count 3.50 MIL/MM3 (4.50-5.90) Hemoglobin 10.7 GM/DL (13.0-17.0) Hematocrit 32.3 % (39.0-51.0) Mean Corpuscular Volume 92.3 FL (80.0-100.0) Mean Corpuscular Hemoglobin 30.7 PG (27.0-34.0) Mean Corpuscular Hemoglobin Concent 33.2 % (32.0-36.0) Red Cell Distribution Width 14.0 % (11.6-17.2) Platelet Count 227 TH/MM3 (150-450) Mean Platelet Volume 9.0 FL (7.0-11.0) Blood Urea Nitrogen 7 MG/DL (7-18) Creatinine 0.76 MG/DL (0.60-1.30) Random Glucose 111 MG/DL (74-106) Calcium Level 7.6 MG/DL (8.5-10.1) Magnesium Level 2.0 MG/DL (1.5-2.5) Sodium Level 140 MEQ/L (136-145) Potassium Level 4.2 MEQ/L (3.5-5.1) Chloride Level 109 MEQ/L (98-107) Carbon Dioxide Level 22.1 MEQ/L (21.0-32.0) Anion Gap 9 MEQ/L (5-15) Estimat Glomerular Filtration Rate 102 ML/MIN (>89) Result Diagram: 02/18/1743902/18/17439 (1) Multi-vessel coronary artery stenosis (2) Coronary artery disease (3) Right inguinal hernia (4) Severe left ventricular systolic dysfunction Plan: EF 35 % will need dariela once BP tolerates (5) S/P CABG x 3 Plan: wean off pressors as tolerated no BB or diuresis today start dariela when BP tolerates recheck LFT/ if stable then start statin OOB, ambulate eval for transfer to stepdown later today pain control Problem Qualifiers (1) Coronary artery disease: Kimi Cisneros Feb 18, 2017 10:31
[2017-02-18] MEDS: KETOROLAC TROMETHAMINE 30 MG/ML (IVP) VIAL IV PUSH PRN ×2 (10:39→22:14)
[2017-02-18] MEDS: INSULIN ASPART SUPPLEMENTAL SCALE SQ SCH ×4 (10:49→22:14)
--- NOTE | 2017-02-18 12:16 | EKG ---
Date Performed: 02/18/2017 Time Performed: 06:06:12 PTAGE: 71 years EKG: Sinus rhythm with PVC(s) Anterolateral T wave changes are nonspecific Low QRS voltages in limb leads Cannot exclu de ischemia; although, T-wave changes are similar to the prior tracing Borderline ECG PREVIOUS TRACING : 02/15/2017 07.08 DOCTOR: Nicho Vallejo Interpretating Date/Time 02/18/2017 12:14:07
--- NOTE | 2017-02-18 12:53 | PD.CARD.PN ---
Subjective Subjective Remarks No events overnight Appropriate chest pain Objective Medications Current Medications Medications (Trade) Dose Ordered Sig/[place] Route Start Time Stop Time Status Last Admin (Pill Splitter) 1 ea UNSCH PRN OTHER 02/15/17 04:45 (NS Flush) 2 ml BID IV FLUSH 02/17/17 12:15 02/18/17 09:50 (NS Flush) 2 ml UNSCH PRN IV FLUSH 02/17/17 12:15 Dobutamine HCl/ Dextrose 250 ml @ 12.15 mls/ hr [id number] IV 02/17/17 13:00 02/17/17 14:20 Phenylephrine HCl 40 mg/Dextrose 500 ml @ 30 mls/hr TITRATE PRN IV 02/17/17 13:00 02/18/17 04:05 (Aspirin Chew) 81 mg DAILY PO 02/18/17 09:00 02/18/17 09:49 (Plavix) 75 mg DAILY PO 02/18/17 09:00 02/18/17 09:49 (Protonix) 40 mg DAILY@06 PO 02/18/17 06:00 02/18/17 04:38 (Cordarone) 400 mg Q12HR PO 02/17/17 21:00 02/18/17 09:49 (Tylenol) 650 mg Q4H PRN PO 02/17/17 12:15 ([place] 5-325 Mg) 1 tab Q3H PRN PO 02/17/17 12:15 02/18/17 04:37 (Toradol Inj) 15 mg Q6H PRN IV PUSH 02/17/17 12:15 02/19/17 12:14 02/18/17 10:39 (Zofran Inj) 4 mg Q6H PRN IV PUSH 02/17/17 12:15 02/17/17 18:07 Cefazolin Sodium/ Dextrose 50 ml @ 100 mls/hr Q8H IV 02/17/17 16:00 02/19/17 00:29 02/18/17 09:50 (Duoneb Neb) 1 ampule Q2HR NEB PRN NEB 02/17/17 12:15 (Duoneb Neb) 1 ampule Q6HR WHILE AWAKE NEB NEB 02/18/17 14:00 02/20/17 13:59 (Colace) 100 mg BID PO 02/18/17 10:00 (Theragran M Tab) 1 tab DAILY PO 02/19/17 09:00 (Milk Of Magnesia Liq) 30 ml DAILY PO 02/19/17 09:00 (Dulcolax Supp) 10 mg UNSCH PRN RECTAL 02/18/17 10:00 (Miralax) 17 gm DAILY PO 02/19/17 09:00 (Senokot) 8.6 mg HS PO 02/18/17 21:00 (Fleets Enema (Adult)) 133 ml UNSCH PRN RECTAL 02/18/17 10:00 (NovoLOG SUPPLEMENTAL SCALE) 1 02,06,10,14,18,22 SQ 02/18/17 10:00 02/19/17 06:01 02/18/17 10:49 (D50w (Vial) Inj) 50 ml UNSCH PRN IV 02/18/17 10:00 (Glucagon Inj) 1 mg UNSCH PRN OTHER 02/18/17 10:00 (NovoLOG SUPPLEMENTAL SCALE) 1 ACHS SQ 02/19/17 08:00 Vital Signs / I&O Vital Signs Date Time Temp Pulse Resp B/P (MAP) Pulse Ox O2 Delivery O2 Flow Rate FiO2 02/18/17 11:00 79 02/18/17 11:00 98.0 79 18 82/44 (57) 97 02/18/17 08:00 94 Nasal Cannula 3.00 02/18/17 07:00 74 02/18/17 07:00 98.2 74 16 85/42 (56) 98 108/56 (73) 02/18/17 05:40 20 02/18/17 04:05 85 102/50 02/18/17 04:00 98.1 86 20 92/53 (66) 98 105/48 (67) 02/18/17 03:40 84 02/18/17 00:45 20 02/18/17 00:00 80 02/18/17 00:00 98.1 68 20 89/50 (63) 96 102/51 (68) 02/17/17 20:56 98 Nasal Cannula 3.00 02/17/17 20:00 98.4 68 20 79/50 (60) 98 106/54 (71) 02/17/17 19:30 97 Nasal Cannula 3.00 02/17/17 19:00 75 02/17/17 18:08 106/58 02/17/17 17:33 70 91/49 02/17/17 16:43 99 Nasal Cannula 4.00 02/17/17 15:10 130/74 02/17/17 15:00 85 02/17/17 15:00 99.4 85 18 130/74 (92) 98 02/17/17 14:20 79 02/17/17 14:20 79 87/50 02/17/17 13:00 95 4 02/17/17 13:00 92 I/O 02/17/17 02/17/17 02/17/17 02/18/17 02/18/17 02/18/17 07:00 15:00 23:00 07:00 15:00 23:00 Intake Total 590 ml 5100 ml 2173.5 ml 1299 ml Output Total 800 ml 2200 ml 820 ml 1965 ml Balance -210 ml 2900 ml 1353.5 ml -666 ml Intake Oral 480 ml 300 ml 480 ml IV Total 110 ml 100 ml 1873.5 ml 819 ml Autotransfusion 500 ml Other 4500 ml Output Urine Total 800 ml 1200 ml 520 ml 1575 ml Chest Tube Drainage Total 300 ml 390 ml Estimated Blood Loss 1000 ml # Bowel Movements 0 0 0 Physical Exam GENERAL: AAOx3, NAD SKIN: Warm and dry. HEAD: Atraumatic. Normocephalic. EYES: Pupils equal and round. No scleral icterus. No injection or drainage. ENT: No nasal bleeding or discharge. Mucous membranes pink and moist. NECK: Trachea midline. No JVD. CARDIOVASCULAR: Regular rate and rhythm. Sternotomy with wound vac RESPIRATORY: No accessory muscle use. Clear to auscultation. Breath sounds equal bilaterally. GASTROINTESTINAL: Abdomen soft, non-tender, nondistended. Hepatic and splenic margins not palpable. MUSCULOSKELETAL: Extremities without clubbing, cyanosis, or edema. No obvious deformities. Right radial no hematoma, neurovascularly intact distally NEUROLOGICAL: Awake and alert. No obvious cranial nerve deficits. Motor grossly within normal limits. Five out of 5 muscle strength in the arms and legs. Normal speech. PSYCHIATRIC: Appropriate mood and affect; insight and judgment normal. Laboratory Laboratory Tests Test 02/18/17 04:40 White Blood Count 14.9 TH/MM3 Red Blood Count 3.50 MIL/MM3 Hemoglobin 10.7 GM/DL Hematocrit 32.3 % Mean Corpuscular Volume 92.3 FL Mean Corpuscular Hemoglobin 30.7 PG Mean Corpuscular Hemoglobin Concent 33.2 % Red Cell Distribution Width 14.0 % Platelet Count 227 TH/MM3 Mean Platelet Volume 9.0 FL Blood Urea Nitrogen 7 MG/DL Creatinine 0.76 MG/DL Random Glucose 111 MG/DL Calcium Level 7.6 MG/DL Magnesium Level 2.0 MG/DL Sodium Level 140 MEQ/L Potassium Level 4.2 MEQ/L Chloride Level 109 MEQ/L Carbon Dioxide Level 22.1 MEQ/L Anion Gap 9 MEQ/L Estimat Glomerular Filtration Rate 102 ML/MIN Assessment and Plan Problem List: (1) Multi-vessel coronary artery stenosis ICD Codes: I25.10 - Atherosclerotic heart disease of [place] coronary artery without angina pectoris (2) Coronary artery disease ICD Codes: I25.10 - Atherosclerotic heart disease of [place] coronary artery without angina pectoris (3) Right inguinal hernia ICD Codes: K40.90 - Unilateral inguinal hernia, without obstruction or gangrene , not specified as recurrent Status: Acute (4) Severe left ventricular systolic dysfunction ICD Codes: I51.9 - Heart disease, unspecified (5) S/P CABG x 3 ICD Codes: Z95.1 - Presence of aortocoronary bypass graft Assessment and Plan 1) MVCAD/NSTEMI s/p CABG POD #1 HDZ to LAD SVG to OM1 SVG to OM2 2) EF 35-40% by echo 3) Dawson drip, wean as possible 4) ASA/Plavix/Amio Eventual BB Problem Qualifiers (1) Coronary artery disease: Julián Sesay DO Feb 18, 2017 12:53
[2017-02-18] MEDS: DOCUSATE SODIUM 100 MG CAP PO SCH ×2 (17:01→20:59)
[2017-02-18] MEDS: ACETAMINOPHEN 325 MG TAB PO PRN (17:15)
[2017-02-18] MEDS: SENNOSIDES 8.6 MG TAB PO SCH (21:00)
[2017-02-19] VITALS (27 sets, daily range): BP systolic 93–111; BP diastolic 54–62; PULSE 77–109; RESP 16–22; TEMP 97.8–98.6; O2SAT 91–99
[2017-02-19] MEDS: ACETAMINOPHEN/HYDROcodone 325 MG/5 MG TAB PO PRN (00:31)
[2017-02-19] MEDS: ceFAZolin 2 GM PREMIX 50 ML IV SCH (00:31)
[2017-02-19] MEDS: INSULIN ASPART SUPPLEMENTAL SCALE SQ SCH ×6 (02:00→22:06)
[2017-02-19] MEDS: KETOROLAC TROMETHAMINE 30 MG/ML (IVP) VIAL IV PUSH PRN (04:36)
[2017-02-19 04:57] LABS: AUTOMATED NEUTROPHIL # 8.1 TH/MM3 (1.8-7.7); BASOPHIL # 0.1 TH/MM3 (0-0.2); BASOPHIL % 0.6 % (0.0-2.0); EOSINOPHIL # 0.1 TH/MM3 (0-0.4); EOSINOPHIL % 0.5 % (0.0-4.0); HEMATOCRIT 28.3 % (39.0-51.0); HEMO FLAGS DIFF FINAL; LYMPH % 14.5 % (9.0-44.0); LYMPHOCYTE # 1.6 TH/MM3 (1.0-4.8); MEAN CELL VOLUME 92.5 FL (80.0-100.0); MEAN CORPUSCULAR HEMOGLOBIN 31.7 PG (27.0-34.0); MEAN CORPUSCULAR HGB CONC 34.3 % (32.0-36.0); MONO % 9.3 % (0.0-8.0); NEUT % 75.1 % (16.0-70.0); PLATELET COUNT 169 TH/MM3 (150-450); RED BLOOD COUNT 3.06 MIL/MM3 (4.50-5.90); RED CELL DISTRIBUTION WIDTH 14.4 % (11.6-17.2); WHITE BLOOD COUNT 10.8 TH/MM3 (4.0-11.0)
[2017-02-19 05:28] LABS: ALKALINE PHOSPHATASE 40 U/L (45-117); ALT (GPT) 14 U/L (12-78); ANION GAP 7 MEQ/L (5-15); AST (GOT) 27 U/L (15-37); BICARBONATE 25.4 MEQ/L (21.0-32.0); BLOOD UREA NITROGEN 14 MG/DL (7-18); CHLORIDE 106 MEQ/L (98-107); GLOMERULAR FILTRATION RATE 78 ML/MIN (>89); MAGNESIUM 2.3 MG/DL (1.5-2.5); SODIUM (NA) 138 MEQ/L (136-145); TOTAL BILIRUBIN ADULT 0.4 MG/DL (0.2-1.0)
[2017-02-19] MEDS: PANTOPRAZOLE SOD 40 MG DELAYED RELEASE TAB PO SCH (05:57)
[2017-02-19] MEDS: DOBUTamine PREMIX DRIP 250 ML IV SCH (05:58)
[2017-02-19] MEDS: RESP: ALBUTEROL 2.5 MG/IPRATROPIUM 0.5 MG NEB (SCH) NEB ×2 (09:19→19:10)
[2017-02-19] MEDS: POLYETHYLENE GLYCOL 17 GM PKG PO SCH (09:58)
[2017-02-19] MEDS: DOCUSATE SODIUM 100 MG CAP PO SCH ×2 (09:58→21:49)
[2017-02-19] MEDS: MAGNESIUM HYDROXIDE SUSP 30 ML CUP PO SCH (09:58)
[2017-02-19] MEDS: MULTIVITAMINS/MINERALS THERAPEUTIC TAB PO SCH (09:59)
[2017-02-19] MEDS: AMIODARONE 200 MG TAB PO SCH ×2 (09:59→21:49)
[2017-02-19] MEDS: CLOPIDOGREL 75 MG TAB PO SCH (09:59)
[2017-02-19] MEDS: ASPIRIN 81 MG CHEW TAB PO SCH (09:59)
[2017-02-19] MEDS: SODIUM CHLORIDE 0.9% FLUSH 10 ML FLUSH IV FLUSH SCH ×2 (10:00→21:47)
--- NOTE | 2017-02-19 10:52 | PD.CAR.PN ---
CVT Progress Note Subjective/Hospital Course: 71/ male hx of CAD prior PCI LAD (2003) presented to ED with chest pain found to have a NSTEMI, underwent cardiac cath by Dr Sesay and found to have multi vessel disease EF 35% PMH: CAD ( prior PCI) chronic back pain , arthritis, BPH surgery: 02/17 Urgent Off-pump Coronary Artery Bypass Grafting x 3 with Left Internal Mammary Artery (HDZ) to the Left Anterior Descending (LAD), reverse saphenous vein graft to the OM1, and reverse saphenous vein graft to the OM2 Right Leg Endoscopic Vein [place] extubated after surgery 02/18 pt up in chair, weaning off the dobutamine, then wean off Dawson gtt hold on starting BB today , will need to recheck LFT in am , if improved will start statin OOB, ambulate as tolerated , transfer to stepdown later today when off all pressors and BP stable 02/19 weaned off pressors , LFT normalized, will start statin hold on starting BB and ELISHA due to labile BP continue ASA, plavix pulm toileting , change pain med to Ultram per pt request leave chest tube in place for now/ drained 150cc/ 12 hrs Objective: GENERAL: A&0 x 3 SKIN: Warm and dry. prevena dressing to chest , incision intact to right EVH site supervising technical operator: Normocephalic. EYES: No scleral icterus. No injection or drainage. NECK: Supple, trachea midline. No JVD or lymphadenopathy. CARDIOVASCULAR: Regular rate and rhythm without murmurs, gallops, or rubs. RESPIRATORY: Breath sounds equal bilaterally. No accessory muscle use chest tube to wall suction/ no air leak/ drained 150cc/ 12 hrs . GASTROINTESTINAL: Abdomen soft, non-tender, nondistended. MUSCULOSKELETAL: No cyanosis, or edema. BACK: Nontender without obvious deformity. No CVA tenderness. Vital Signs Date Time Temp Pulse Resp B/P (MAP) Pulse Ox O2 Delivery O2 Flow Rate FiO2 02/19/17 09:21 97 02/19/17 06:00 80 02/19/17 05:00 77 02/19/17 04:00 81 02/19/17 03:14 91 Room Air 02/19/17 03:13 98.3 96 22 99/56 (70) 91 02/19/17 03:00 83 02/19/17 02:00 78 02/19/17 01:00 78 02/19/17 00:00 85 02/18/17 23:24 98.5 90 20 83/49 (60) 95 02/18/17 23:00 88 02/18/17 22:00 110 02/18/17 21:00 101 02/18/17 20:14 97 02/18/17 20:00 97 02/18/17 19:57 96 Nasal Cannula 02/18/17 19:57 98.2 102 20 93/54 (67) 96 02/18/17 19:00 100 02/18/17 17:22 98.3 90 17 90/53 (65) 95 02/18/17 15:23 99 Nasal Cannula 1.00 02/18/17 15:22 83 02/18/17 15:22 98.0 79 18 85/43 (57) 97 02/18/17 14:33 98.7 84 16 84/51 (62) 96 Arterial Line 02/18/17 14:04 95 Nasal Cannula 2.00 02/18/17 11:00 79 02/18/17 11:00 98.0 79 18 82/44 (57) 97 Labs: Laboratory Tests Test 02/19/17 04:45 White Blood Count 10.8 TH/MM3 (4.0-11.0) Red Blood Count 3.06 MIL/MM3 (4.50-5.90) Hemoglobin 9.7 GM/DL (13.0-17.0) Hematocrit 28.3 % (39.0-51.0) Mean Corpuscular Volume 92.5 FL (80.0-100.0) Mean Corpuscular Hemoglobin 31.7 PG (27.0-34.0) Mean Corpuscular Hemoglobin Concent 34.3 % (32.0-36.0) Red Cell Distribution Width 14.4 % (11.6-17.2) Platelet Count 169 TH/MM3 (150-450) Mean Platelet Volume 8.7 FL (7.0-11.0) Neutrophils (%) (Auto) 75.1 % (16.0-70.0) Lymphocytes (%) (Auto) 14.5 % (9.0-44.0) Monocytes (%) (Auto) 9.3 % (0.0-8.0) Eosinophils (%) (Auto) 0.5 % (0.0-4.0) Basophils (%) (Auto) 0.6 % (0.0-2.0) Neutrophils # (Auto) 8.1 TH/MM3 (1.8-7.7) Lymphocytes # (Auto) 1.6 TH/MM3 (1.0-4.8) Monocytes # (Auto) 1.0 TH/MM3 (0-0.9) Eosinophils # (Auto) 0.1 TH/MM3 (0-0.4) Basophils # (Auto) 0.1 TH/MM3 (0-0.2) CBC Comment DIFF FINAL Differential Comment Blood Urea Nitrogen 14 MG/DL (7-18) Creatinine 0.96 MG/DL (0.60-1.30) Random Glucose 108 MG/DL (74-106) Total Protein 5.0 GM/DL (6.4-8.2) Albumin 2.1 GM/DL (3.4-5.0) Calcium Level 7.5 MG/DL (8.5-10.1) Magnesium Level 2.3 MG/DL (1.5-2.5) Alkaline Phosphatase 40 U/L (45-117) Aspartate Amino Transf (AST/SGOT) 27 U/L (15-37) Alanine Aminotransferase (ALT/SGPT) 14 U/L (12-78) Total Bilirubin 0.4 MG/DL (0.2-1.0) Sodium Level 138 MEQ/L (136-145) Potassium Level 4.0 MEQ/L (3.5-5.1) Chloride Level 106 MEQ/L (98-107) Carbon Dioxide Level 25.4 MEQ/L (21.0-32.0) Anion Gap 7 MEQ/L (5-15) Estimat Glomerular Filtration Rate 78 ML/MIN (>89) Result Diagram: 02/19/1744402/19/17444 Telemetry: NSR (1) Multi-vessel coronary artery stenosis (2) Coronary artery disease (3) S/P CABG x 3 Plan: no BB or diuresis today start elisha when BP tolerates start statin , LFT's normalized OOB, ambulate pain control / change to po Ultram (4) Right inguinal hernia (5) Severe left ventricular systolic dysfunction Plan: EF 35 % will need elisha once BP tolerates Problem Qualifiers (1) Coronary artery disease: Kimi Cisneros Feb 19, 2017 10:52
[2017-02-19] MEDS: ACETAMINOPHEN 325 MG TAB PO PRN ×2 (11:56→23:16)
[2017-02-19] MEDS ORDERED: WALKER WHEELS/F1 MIS (15:31)
[2017-02-19] MEDS: traMADol HCL 50 MG TAB PO PRN ×2 (16:00→21:48)
--- NOTE | 2017-02-19 17:21 | PD.CARD.PN ---
Subjective Subjective Remarks No events overnight Tired today, but otherwise no complaints Objective Medications Current Medications Medications (Trade) Dose Ordered Sig/[place] Route Start Time Stop Time Status Last Admin (Pill Splitter) 1 ea UNSCH PRN OTHER 02/15/17 04:45 (NS Flush) 2 ml BID IV FLUSH 02/17/17 12:15 02/19/17 10:00 (NS Flush) 2 ml UNSCH PRN IV FLUSH 02/17/17 12:15 (Aspirin Chew) 81 mg DAILY PO 02/18/17 09:00 02/19/17 09:59 (Plavix) 75 mg DAILY PO 02/18/17 09:00 02/19/17 09:59 (Protonix) 40 mg DAILY@06 PO 02/18/17 06:00 02/19/17 05:57 (Cordarone) 400 mg Q12HR PO 02/17/17 21:00 02/19/17 09:59 (Tylenol) 650 mg Q4H PRN PO 02/17/17 12:15 02/19/17 11:56 (Zofran Inj) 4 mg Q6H PRN IV PUSH 02/17/17 12:15 02/17/17 18:07 (Duoneb Neb) 1 ampule Q2HR NEB PRN NEB 02/17/17 12:15 (Duoneb Neb) 1 ampule Q6HR WHILE AWAKE NEB NEB 02/18/17 14:00 02/20/17 13:59 02/19/17 09:19 (Colace) 100 mg BID PO 02/18/17 10:00 02/19/17 09:58 (Theragran M Tab) 1 tab DAILY PO 02/19/17 09:00 02/19/17 09:59 (Milk Of Magnesia Liq) 30 ml DAILY PO 02/19/17 09:00 02/19/17 09:58 (Dulcolax Supp) 10 mg UNSCH PRN RECTAL 02/18/17 10:00 (Miralax) 17 gm DAILY PO 02/19/17 09:00 02/19/17 09:58 (Senokot) 8.6 mg HS PO 02/18/17 21:00 02/18/17 21:00 (Fleets Enema (Adult)) 133 ml UNSCH PRN RECTAL 02/18/17 10:00 (D50w (Vial) Inj) 50 ml UNSCH PRN IV 02/18/17 10:00 (Glucagon Inj) 1 mg UNSCH PRN OTHER 02/18/17 10:00 (NovoLOG SUPPLEMENTAL SCALE) 1 ACHS SQ 02/19/17 08:00 02/19/17 13:12 (Lipitor) 40 mg HS PO 02/19/17 21:00 (Ultram) 50 mg Q6H PRN PO 02/19/17 11:00 02/19/17 16:00 (Ambien) 5 mg HS PRN PO 02/19/17 11:00 Vital Signs / I&O Vital Signs Date Time Temp Pulse Resp B/P (MAP) Pulse Ox O2 Delivery O2 Flow Rate FiO2 02/19/17 15:51 97.9 89 16 93/60 (71) 96 02/19/17 15:47 99 21 02/19/17 12:00 88 02/19/17 11:50 98.1 87 16 107/60 (76) 99 02/19/17 11:00 88 02/19/17 10:00 87 02/19/17 09:21 97 02/19/17 09:15 97.8 89 18 103/54 (70) 92 02/19/17 09:15 87 02/19/17 09:15 92 Room Air 02/19/17 06:00 80 02/19/17 05:00 77 02/19/17 04:00 81 02/19/17 03:14 91 Room Air 02/19/17 03:13 98.3 96 22 99/56 (70) 91 02/19/17 03:00 83 02/19/17 02:00 78 02/19/17 01:00 78 02/19/17 00:00 85 02/18/17 23:24 98.5 90 20 83/49 (60) 95 02/18/17 23:00 88 02/18/17 22:00 110 02/18/17 21:00 101 02/18/17 20:14 97 02/18/17 20:00 97 02/18/17 19:57 96 Nasal Cannula 02/18/17 19:57 98.2 102 20 93/54 (67) 96 02/18/17 19:00 100 02/18/17 17:22 98.3 90 17 90/53 (65) 95 I/O 02/18/17 02/18/17 02/18/17 02/19/17 02/19/17 02/19/17 07:00 15:00 23:00 07:00 15:00 23:00 Intake Total 1299 ml 1150 ml 525 ml Output Total 1965 ml 1660 ml 725 ml Balance -666 ml -510 ml -200 ml Intake Oral 480 ml 850 ml 480 ml IV Total 819 ml 300 ml 45 ml Output Urine Total 1575 ml 1350 ml 725 ml Chest Tube Drainage Total 390 ml 310 ml # Bowel Movements 0 0 Physical Exam GENERAL: AAOx3, NAD SKIN: Warm and dry. HEAD: Atraumatic. Normocephalic. EYES: Pupils equal and round. No scleral icterus. No injection or drainage. ENT: No nasal bleeding or discharge. Mucous membranes pink and moist. NECK: Trachea midline. No JVD. CARDIOVASCULAR: Regular rate and rhythm. Sternotomy with wound vac RESPIRATORY: No accessory muscle use. Clear to auscultation. Breath sounds equal bilaterally. GASTROINTESTINAL: Abdomen soft, non-tender, nondistended. Hepatic and splenic margins not palpable. MUSCULOSKELETAL: Extremities without clubbing, cyanosis, or edema. No obvious deformities. Right radial no hematoma, neurovascularly intact distally NEUROLOGICAL: Awake and alert. No obvious cranial nerve deficits. Motor grossly within normal limits. Five out of 5 muscle strength in the arms and legs. Normal speech. PSYCHIATRIC: Appropriate mood and affect; insight and judgment normal. Laboratory Laboratory Tests Test 02/19/17 04:45 White Blood Count 10.8 TH/MM3 Red Blood Count 3.06 MIL/MM3 Hemoglobin 9.7 GM/DL Hematocrit 28.3 % Mean Corpuscular Volume 92.5 FL Mean Corpuscular Hemoglobin 31.7 PG Mean Corpuscular Hemoglobin Concent 34.3 % Red Cell Distribution Width 14.4 % Platelet Count 169 TH/MM3 Mean Platelet Volume 8.7 FL Neutrophils (%) (Auto) 75.1 % Lymphocytes (%) (Auto) 14.5 % Monocytes (%) (Auto) 9.3 % Eosinophils (%) (Auto) 0.5 % Basophils (%) (Auto) 0.6 % Neutrophils # (Auto) 8.1 TH/MM3 Lymphocytes # (Auto) 1.6 TH/MM3 Monocytes # (Auto) 1.0 TH/MM3 Eosinophils # (Auto) 0.1 TH/MM3 Basophils # (Auto) 0.1 TH/MM3 CBC Comment DIFF FINAL Differential Comment Blood Urea Nitrogen 14 MG/DL Creatinine 0.96 MG/DL Random Glucose 108 MG/DL Total Protein 5.0 GM/DL Albumin 2.1 GM/DL Calcium Level 7.5 MG/DL Magnesium Level 2.3 MG/DL Alkaline Phosphatase 40 U/L Aspartate Amino Transf (AST/SGOT) 27 U/L Alanine Aminotransferase (ALT/SGPT) 14 U/L Total Bilirubin 0.4 MG/DL Sodium Level 138 MEQ/L Potassium Level 4.0 MEQ/L Chloride Level 106 MEQ/L Carbon Dioxide Level 25.4 MEQ/L Anion Gap 7 MEQ/L Estimat Glomerular Filtration Rate 78 ML/MIN Assessment and Plan Problem List: (1) Multi-vessel coronary artery stenosis ICD Codes: I25.10 - Atherosclerotic heart disease of [place] coronary artery without angina pectoris (2) Coronary artery disease ICD Codes: I25.10 - Atherosclerotic heart disease of [place] coronary artery without angina pectoris (3) S/P CABG x 3 ICD Codes: Z95.1 - Presence of aortocoronary bypass graft (4) Right inguinal hernia ICD Codes: K40.90 - Unilateral inguinal hernia, without obstruction or gangrene , not specified as recurrent Status: Acute (5) Severe left ventricular systolic dysfunction ICD Codes: I51.9 - Heart disease, unspecified Assessment and Plan 1) MVCAD/NSTEMI s/p CABG POD #2 HDZ to LAD SVG to OM1 SVG to OM2 2) EF 35-40% by echo 3) ASA/Plavix/Amio/Statin Eventual BB/ ELISHA-I if BP tolerates 4) Con't to ambulate Problem Qualifiers (1) Coronary artery disease: Julián Sesay DO Feb 19, 2017 17:21
[2017-02-19] MEDS: ATORVASTATIN 40 MG TAB PO SCH (21:00)
[2017-02-19] MEDS: SENNOSIDES 8.6 MG TAB PO SCH (21:00)
[2017-02-19] MEDS: ZOLPIDEM TARTRATE 5 MG TAB PO PRN (23:16)
[2017-02-20] VITALS (25 sets, daily range): BP systolic 99–107; BP diastolic 55–65; PULSE 72–99; RESP 16–20; TEMP 97.4–98.5; O2SAT 92–96
[2017-02-20] MEDS: traMADol HCL 50 MG TAB PO PRN ×2 (05:07→22:37)
[2017-02-20] MEDS: PANTOPRAZOLE SOD 40 MG DELAYED RELEASE TAB PO SCH (05:09)
[2017-02-20 05:46] LABS: AUTOMATED NEUTROPHIL # 6.1 TH/MM3 (1.8-7.7); BASOPHIL # 0.1 TH/MM3 (0-0.2); BASOPHIL % 0.9 % (0.0-2.0); EOSINOPHIL # 0.2 TH/MM3 (0-0.4); HEMATOCRIT 29.1 % (39.0-51.0); HEMO FLAGS DIFF FINAL; LYMPH % 21.3 % (9.0-44.0); LYMPHOCYTE # 1.9 TH/MM3 (1.0-4.8); MEAN CELL VOLUME 92.5 FL (80.0-100.0); MEAN CORPUSCULAR HEMOGLOBIN 30.8 PG (27.0-34.0); MEAN CORPUSCULAR HGB CONC 33.3 % (32.0-36.0); MONO % 8.1 % (0.0-8.0); NEUT % 67.7 % (16.0-70.0); PLATELET COUNT 197 TH/MM3 (150-450); RED BLOOD COUNT 3.14 MIL/MM3 (4.50-5.90); RED CELL DISTRIBUTION WIDTH 14.5 % (11.6-17.2); WHITE BLOOD COUNT 8.9 TH/MM3 (4.0-11.0)
[2017-02-20 06:14] LABS: BICARBONATE 26.6 MEQ/L (21.0-32.0); MAGNESIUM 2.3 MG/DL (1.5-2.5)
[2017-02-20] MEDS: RESP: ALBUTEROL 2.5 MG/IPRATROPIUM 0.5 MG NEB (SCH) NEB (07:42)
[2017-02-20] MEDS: INSULIN ASPART SUPPLEMENTAL SCALE SQ SCH ×4 (08:00→21:00)
[2017-02-20] MEDS: MULTIVITAMINS/MINERALS THERAPEUTIC TAB PO SCH (09:13)
[2017-02-20] MEDS: ASPIRIN 81 MG CHEW TAB PO SCH (09:13)
[2017-02-20] MEDS: SODIUM CHLORIDE 0.9% FLUSH 10 ML FLUSH IV FLUSH SCH ×2 (09:14→21:01)
[2017-02-20] MEDS: DOCUSATE SODIUM 100 MG CAP PO SCH ×2 (09:14→21:01)
[2017-02-20] MEDS: POLYETHYLENE GLYCOL 17 GM PKG PO SCH (09:14)
[2017-02-20] MEDS: CLOPIDOGREL 75 MG TAB PO SCH (09:14)
[2017-02-20] MEDS: AMIODARONE 200 MG TAB PO SCH ×2 (09:14→21:00)
[2017-02-20] MEDS: MAGNESIUM HYDROXIDE SUSP 30 ML CUP PO SCH (09:14)
--- NOTE | 2017-02-20 11:06 | PD.CAR.PN ---
CVT Progress Note Subjective/Hospital Course: 71/ male hx of CAD prior PCI LAD (2003) presented to ED with chest pain found to have a NSTEMI, underwent cardiac cath by Dr Sesay and found to have multi vessel disease EF 35% PMH: CAD ( prior PCI) chronic back pain , arthritis, BPH surgery: 02/17 Urgent Off-pump Coronary Artery Bypass Grafting x 3 with Left Internal Mammary Artery (HDZ) to the Left Anterior Descending (LAD), reverse saphenous vein graft to the OM1, and reverse saphenous vein graft to the OM2 Right Leg Endoscopic Vein [place] extubated after surgery 02/18 pt up in chair, weaning off the dobutamine, then wean off Dawson gtt hold on starting BB today , will need to recheck LFT in am , if improved will start statin OOB, ambulate as tolerated , transfer to stepdown later today when off all pressors and BP stable 02/19 weaned off pressors , LFT normalized, will start statin hold on starting BB and ELISHA due to labile BP continue ASA, plavix pulm toileting , change pain med to Ultram per pt request leave chest tube in place for now/ drained 150cc/ 12 hrs 02/20 BP still too low to start BB / re-eval , no ELISHA 2/2 to labile BP pain controlled/ chest tube drained 70cc/ 12 hrs, chest tube removed without difficulty continue ambulation / on room air continue pulm toileting Objective: GENERAL: SKIN: Warm and dry. prevena dressing to chest , elisha wrap to right leg HEAD: Normocephalic. EYES: No scleral icterus. No injection or drainage. NECK: Supple, trachea midline. No JVD or lymphadenopathy. CARDIOVASCULAR: Regular rate and rhythm without murmurs, gallops, or rubs. RESPIRATORY: Breath sounds equal bilaterally. No accessory muscle use. chest tube removed without difficulty GASTROINTESTINAL: Abdomen soft, non-tender, nondistended. MUSCULOSKELETAL: No cyanosis, or edema. BACK: Nontender without obvious deformity. No CVA tenderness. Vital Signs Date Time Temp Pulse Resp B/P (MAP) Pulse Ox O2 Delivery O2 Flow Rate FiO2 02/20/17 10:00 73 02/20/17 09:00 94 02/20/17 08:00 78 02/20/17 07:43 93 21 02/20/17 07:00 94 Room Air 02/20/17 07:00 76 02/20/17 07:00 98.3 75 17 107/65 (79) 94 02/20/17 06:11 18 02/20/17 06:00 76 02/20/17 05:00 78 02/20/17 04:00 78 02/20/17 03:00 84 02/20/17 03:00 97.4 91 20 99/55 (70) 92 02/20/17 02:00 85 02/20/17 01:00 85 02/20/17 00:20 16 02/20/17 00:00 85 02/19/17 23:00 98.6 92 20 111/62 (78) 94 02/19/17 23:00 95 02/19/17 22:00 105 02/19/17 21:00 94 02/19/17 20:00 87 02/19/17 19:00 81 02/19/17 19:00 93 Room Air 02/19/17 19:00 98.2 109 20 108/56 (73) 93 02/19/17 18:01 80 02/19/17 17:00 88 02/19/17 16:00 88 02/19/17 15:51 97.9 89 16 93/60 (71) 96 02/19/17 15:47 99 21 02/19/17 15:00 82 02/19/17 14:00 84 02/19/17 13:00 94 02/19/17 12:00 88 02/19/17 11:50 98.1 87 16 107/60 (76) 99 Labs: Laboratory Tests Test 02/20/17 05:15 White Blood Count 8.9 TH/MM3 (4.0-11.0) Red Blood Count 3.14 MIL/MM3 (4.50-5.90) Hemoglobin 9.7 GM/DL (13.0-17.0) Hematocrit 29.1 % (39.0-51.0) Mean Corpuscular Volume 92.5 FL (80.0-100.0) Mean Corpuscular Hemoglobin 30.8 PG (27.0-34.0) Mean Corpuscular Hemoglobin Concent 33.3 % (32.0-36.0) Red Cell Distribution Width 14.5 % (11.6-17.2) Platelet Count 197 TH/MM3 (150-450) Mean Platelet Volume 8.9 FL (7.0-11.0) Neutrophils (%) (Auto) 67.7 % (16.0-70.0) Lymphocytes (%) (Auto) 21.3 % (9.0-44.0) Monocytes (%) (Auto) 8.1 % (0.0-8.0) Eosinophils (%) (Auto) 2.0 % (0.0-4.0) Basophils (%) (Auto) 0.9 % (0.0-2.0) Neutrophils # (Auto) 6.1 TH/MM3 (1.8-7.7) Lymphocytes # (Auto) 1.9 TH/MM3 (1.0-4.8) Monocytes # (Auto) 0.7 TH/MM3 (0-0.9) Eosinophils # (Auto) 0.2 TH/MM3 (0-0.4) Basophils # (Auto) 0.1 TH/MM3 (0-0.2) CBC Comment DIFF FINAL Differential Comment Blood Urea Nitrogen 12 MG/DL (7-18) Creatinine 0.76 MG/DL (0.60-1.30) Random Glucose 100 MG/DL (74-106) Calcium Level 7.5 MG/DL (8.5-10.1) Magnesium Level 2.3 MG/DL (1.5-2.5) Sodium Level 139 MEQ/L (136-145) Potassium Level 4.0 MEQ/L (3.5-5.1) Chloride Level 105 MEQ/L (98-107) Carbon Dioxide Level 26.6 MEQ/L (21.0-32.0) Anion Gap 7 MEQ/L (5-15) Estimat Glomerular Filtration Rate 102 ML/MIN (>89) Result Diagram: 02/20/1751402/20/17514 Telemetry: NSR (1) Coronary artery disease (2) S/P CABG x 3 Plan: ASA, statin start BB when BP improved EF 35% , unable to start ELISHA with labile BP chest tube removed check CXR in am (3) Right inguinal hernia (4) Severe left ventricular systolic dysfunction Plan: eval to start ELISHA when BP allows Problem Qualifiers (1) Coronary artery disease: Kimi Cisneros Feb 20, 2017 11:06
--- NOTE | 2017-02-20 17:21 | PD.CARD.PN ---
Subjective Subjective Remarks Patient seen earlier No complaints, up and ambulating Chest tubes coming out today Objective Medications Current Medications Medications (Trade) Dose Ordered Sig/[place] Route Start Time Stop Time Status Last Admin (Pill Splitter) 1 ea UNSCH PRN OTHER 02/15/17 04:45 (NS Flush) 2 ml BID IV FLUSH 02/17/17 12:15 02/20/17 09:14 (NS Flush) 2 ml UNSCH PRN IV FLUSH 02/17/17 12:15 (Aspirin Chew) 81 mg DAILY PO 02/18/17 09:00 02/20/17 09:13 (Plavix) 75 mg DAILY PO 02/18/17 09:00 02/20/17 09:14 (Protonix) 40 mg DAILY@06 PO 02/18/17 06:00 02/20/17 05:09 (Cordarone) 400 mg Q12HR PO 02/17/17 21:00 02/20/17 09:14 (Tylenol) 650 mg Q4H PRN PO 02/17/17 12:15 02/19/17 23:16 (Zofran Inj) 4 mg Q6H PRN IV PUSH 02/17/17 12:15 02/17/17 18:07 (Duoneb Neb) 1 ampule Q2HR NEB PRN NEB 02/17/17 12:15 (Colace) 100 mg BID PO 02/18/17 10:00 02/20/17 09:14 (Theragran M Tab) 1 tab DAILY PO 02/19/17 09:00 02/20/17 09:13 (Milk Of Magnesia Liq) 30 ml DAILY PO 02/19/17 09:00 02/20/17 09:14 (Dulcolax Supp) 10 mg UNSCH PRN RECTAL 02/18/17 10:00 (Miralax) 17 gm DAILY PO 02/19/17 09:00 02/20/17 09:14 (Senokot) 8.6 mg HS PO 02/18/17 21:00 02/18/17 21:00 (Fleets Enema (Adult)) 133 ml UNSCH PRN RECTAL 02/18/17 10:00 (D50w (Vial) Inj) 50 ml UNSCH PRN IV 02/18/17 10:00 (Glucagon Inj) 1 mg UNSCH PRN OTHER 02/18/17 10:00 (NovoLOG SUPPLEMENTAL SCALE) 1 ACHS SQ 02/19/17 08:00 02/20/17 11:54 (Lipitor) 40 mg HS PO 02/19/17 21:00 (Ultram) 50 mg Q6H PRN PO 02/19/17 11:00 02/20/17 05:07 (Ambien) 5 mg HS PRN PO 02/19/17 11:00 02/19/17 23:16 Vital Signs / I&O Vital Signs Date Time Temp Pulse Resp B/P (MAP) Pulse Ox O2 Delivery O2 Flow Rate FiO2 02/20/17 15:00 99 02/20/17 15:00 93 Room Air 02/20/17 15:00 98.4 84 16 102/59 (73) 93 02/20/17 14:00 78 02/20/17 13:00 87 02/20/17 12:00 84 02/20/17 11:00 98.2 80 17 105/60 (75) 92 02/20/17 11:00 94 Room Air 02/20/17 11:00 97 02/20/17 10:00 73 02/20/17 09:00 94 02/20/17 08:00 78 02/20/17 07:43 93 21 02/20/17 07:00 94 Room Air 02/20/17 07:00 76 02/20/17 07:00 98.3 75 17 107/65 (79) 94 02/20/17 06:11 18 02/20/17 06:00 76 02/20/17 05:00 78 02/20/17 04:00 78 02/20/17 03:00 84 02/20/17 03:00 97.4 91 20 99/55 (70) 92 02/20/17 02:00 85 02/20/17 01:00 85 02/20/17 00:20 16 02/20/17 00:00 85 02/19/17 23:00 98.6 92 20 111/62 (78) 94 02/19/17 23:00 95 02/19/17 22:00 105 02/19/17 21:00 94 02/19/17 20:00 87 02/19/17 19:00 81 02/19/17 19:00 93 Room Air 02/19/17 19:00 98.2 109 20 108/56 (73) 93 02/19/17 18:01 80 I/O 02/19/17 02/19/17 02/19/17 02/20/17 02/20/17 02/20/17 07:00 15:00 23:00 07:00 15:00 23:00 Intake Total 525 ml 1200 ml 240 ml Output Total 725 ml 2250 ml 620 ml Balance -200 ml -1050 ml -380 ml Intake Oral 480 ml 1200 ml 240 ml IV Total 45 ml Output Urine Total 725 ml 1850 ml 550 ml Chest Tube Drainage Total 400 ml 70 ml # Bowel Movements 0 0 Physical Exam GENERAL: AAOx3, NAD SKIN: Warm and dry. HEAD: Atraumatic. Normocephalic. EYES: Pupils equal and round. No scleral icterus. No injection or drainage. ENT: No nasal bleeding or discharge. Mucous membranes pink and moist. NECK: Trachea midline. No JVD. CARDIOVASCULAR: Regular rate and rhythm. Sternotomy with wound vac RESPIRATORY: No accessory muscle use. Clear to auscultation. Breath sounds equal bilaterally. GASTROINTESTINAL: Abdomen soft, non-tender, nondistended. Hepatic and splenic margins not palpable. MUSCULOSKELETAL: Extremities without clubbing, cyanosis, or edema. No obvious deformities. Right radial no hematoma, neurovascularly intact distally NEUROLOGICAL: Awake and alert. No obvious cranial nerve deficits. Motor grossly within normal limits. Five out of 5 muscle strength in the arms and legs. Normal speech. PSYCHIATRIC: Appropriate mood and affect; insight and judgment normal. Laboratory Laboratory Tests Test 02/20/17 05:15 White Blood Count 8.9 TH/MM3 Red Blood Count 3.14 MIL/MM3 Hemoglobin 9.7 GM/DL Hematocrit 29.1 % Mean Corpuscular Volume 92.5 FL Mean Corpuscular Hemoglobin 30.8 PG Mean Corpuscular Hemoglobin Concent 33.3 % Red Cell Distribution Width 14.5 % Platelet Count 197 TH/MM3 Mean Platelet Volume 8.9 FL Neutrophils (%) (Auto) 67.7 % Lymphocytes (%) (Auto) 21.3 % Monocytes (%) (Auto) 8.1 % Eosinophils (%) (Auto) 2.0 % Basophils (%) (Auto) 0.9 % Neutrophils # (Auto) 6.1 TH/MM3 Lymphocytes # (Auto) 1.9 TH/MM3 Monocytes # (Auto) 0.7 TH/MM3 Eosinophils # (Auto) 0.2 TH/MM3 Basophils # (Auto) 0.1 TH/MM3 CBC Comment DIFF FINAL Differential Comment Blood Urea Nitrogen 12 MG/DL Creatinine 0.76 MG/DL Random Glucose 100 MG/DL Calcium Level 7.5 MG/DL Magnesium Level 2.3 MG/DL Sodium Level 139 MEQ/L Potassium Level 4.0 MEQ/L Chloride Level 105 MEQ/L Carbon Dioxide Level 26.6 MEQ/L Anion Gap 7 MEQ/L Estimat Glomerular Filtration Rate 102 ML/MIN Assessment and Plan Problem List: (1) Coronary artery disease ICD Codes: I25.10 - Atherosclerotic heart disease of [place] coronary artery without angina pectoris (2) S/P CABG x 3 ICD Codes: Z95.1 - Presence of aortocoronary bypass graft (3) Right inguinal hernia ICD Codes: K40.90 - Unilateral inguinal hernia, without obstruction or gangrene , not specified as recurrent Status: Acute (4) Severe left ventricular systolic dysfunction ICD Codes: I51.9 - Heart disease, unspecified Assessment and Plan 1) MVCAD/NSTEMI s/p CABG POD #3 HDZ to LAD SVG to OM1 SVG to OM2 2) EF 35-40% by echo 3) ASA/Plavix/Amio/Statin Eventual BB/ ELISHA-I if BP tolerates, currently too low 4) Con't to ambulate Problem Qualifiers (1) Coronary artery disease: Julián Sesay DO Feb 20, 2017 17:21
[2017-02-20] MEDS: ACETAMINOPHEN 325 MG TAB PO PRN (17:34)
[2017-02-20] MEDS: ATORVASTATIN 40 MG TAB PO SCH (21:01)
[2017-02-20] MEDS: SENNOSIDES 8.6 MG TAB PO SCH (21:01)
[2017-02-20] MEDS: ZOLPIDEM TARTRATE 5 MG TAB PO PRN (22:36)
[2017-02-21] VITALS (16 sets, daily range): BP systolic 109–121; BP diastolic 60–69; PULSE 68–92; RESP 16–18; TEMP 97.8–98.5; O2SAT 94–97
[2017-02-21] MEDS: ACETAMINOPHEN 325 MG TAB PO PRN (03:42)
--- NOTE | 2017-02-21 05:54 | RADRPT ---
EXAM DATE/TIME: 02/21/2017 04:40 [place] COMPARISON: CHEST SINGLE AP, February 18, 2017, 4:56. INDICATIONS : Evaluate pneumothorax MEDICAL HISTORY : Hypercholesterolemia. Arthritis, Transient ischemic attack. SURGICAL HISTORY : Tonsillectomy. Coronary artery stent. Appendectomy. Back surgery ENCOUNTER: Subsequent ACUITY: 4 - 6 days PAIN SCORE: 7/10 LOCATION: Bilateral chest FINDINGS: A single view of the chest demonstrates a mild cardiomegaly. Subsegmental basilar airspace disease. N o effusion. No pneumothorax. Postoperative sternotomy. Elevated right hemidiaphragm. Removal of centr al and left chest tubes. CONCLUSION: 1. Removal of chest tubes and left central line without pneumothorax. Mild subsegmental atelectasis a t the bases. Elevated right hemidiaphragm. Sherwin Soto MD on February 21, 2017 at 5:51 Board Certified Radiologist. This report was verified electronically.
[2017-02-21] MEDS: PANTOPRAZOLE SOD 40 MG DELAYED RELEASE TAB PO SCH (06:26)
[2017-02-21] MEDS: INSULIN ASPART SUPPLEMENTAL SCALE SQ SCH ×2 (08:49→12:00)
[2017-02-21] MEDS: CLOPIDOGREL 75 MG TAB PO SCH (08:49)
[2017-02-21] MEDS: MULTIVITAMINS/MINERALS THERAPEUTIC TAB PO SCH (08:49)
[2017-02-21] MEDS: ASPIRIN 81 MG CHEW TAB PO SCH (08:49)
[2017-02-21] MEDS: DOCUSATE SODIUM 100 MG CAP PO SCH (08:49)
[2017-02-21] MEDS: AMIODARONE 200 MG TAB PO SCH (08:50)
[2017-02-21] MEDS: MAGNESIUM HYDROXIDE SUSP 30 ML CUP PO SCH (08:50)
[2017-02-21] MEDS: POLYETHYLENE GLYCOL 17 GM PKG PO SCH (08:50)
[2017-02-21] MEDS: SODIUM CHLORIDE 0.9% FLUSH 10 ML FLUSH IV FLUSH SCH (08:55)
[2017-02-21 09:08] LABS: HEMATOCRIT 33.6 % (39.0-51.0); MEAN CELL VOLUME 92.9 FL (80.0-100.0); MEAN CORPUSCULAR HEMOGLOBIN 30.7 PG (27.0-34.0); PLATELET COUNT 298 TH/MM3 (150-450); RED BLOOD COUNT 3.61 MIL/MM3 (4.50-5.90); RED CELL DISTRIBUTION WIDTH 14.5 % (11.6-17.2); REVIEW FLAG FINAL
[2017-02-21] MEDS ORDERED: PLAV75TA29 PO (12:02)
[2017-02-21] MEDS ORDERED: METO25TA3 PO (12:02)
[2017-02-21] MEDS ORDERED: AMIO200T PO (12:02)
[2017-02-21] MEDS ORDERED: ASPI81CH25 PO (12:02)
[2017-02-21] MEDS ORDERED: ATOR40TA16 PO (12:02)
[2017-02-21] MEDS ORDERED: ULTR50TA5 PO (12:02)
[2017-02-21] MEDS ORDERED: DOCU1CAP39 PO (12:02)
[2017-02-21] MEDS ORDERED: POLY17S PO (12:02)
[2017-02-21] MEDS ORDERED: THERM PO (12:02)
--- NOTE | 2017-02-21 12:08 | HHI.DS ---
Discharge Summary Admission Date Feb 15, 2017 at 02:46 Discharge Date: Feb 21, 2017 Admitting Diagnosis acute myocardial infarction (1) Coronary artery disease ICD Codes: I25.10 - Atherosclerotic heart disease of [place] coronary artery without angina pectoris (2) Acute myocardial infarction ICD Codes: I21.3 - ST elevation (STEMI) myocardial infarction of unspecified site Status: Acute (3) Severe left ventricular systolic dysfunction ICD Codes: I51.9 - Heart disease, unspecified (4) Hyperlipemia ICD Codes: E78.5 - Hyperlipidemia, unspecified Status: Chronic (5) Chronic back pain ICD Codes: M54.9 - Dorsalgia, unspecified; G89.29 - Other chronic pain Status: Chronic (6) S/P CABG x 3 Diagnosis: Secondary ICD Codes: Z95.1 - Presence of aortocoronary bypass graft Status: Acute Procedures 1. Urgent Off-pump Coronary Artery Bypass Grafting x 3 with Left Internal Mammary Artery (HDZ) to the Left Anterior Descending (LAD), reverse saphenous vein graft to the OM1, and reverse saphenous vein graft to the OM2 2. Right Leg Endoscopic Vein [place] 3. Intraoperative Vein Mapping 4. Multi-Level Intercostal Nerve Block. 02/17/17 Brief History 71/ male hx of CAD prior PCI LAD (2003) presented to ED with chest pain found to have a NSTEMI, underwent cardiac cath by Dr Sesay and found to have multi vessel disease EF 35% PMH: CAD ( prior PCI) chronic back pain , arthritis, BPH surgery: 02/17 Urgent Off-pump Coronary Artery Bypass Grafting x 3 with Left Internal Mammary Artery (HDZ) to the Left Anterior Descending (LAD), reverse saphenous vein graft to the OM1, and reverse saphenous vein graft to the OM2 Right Leg Endoscopic Vein [place] extubated after surgery CBC/BMP: 02/21/17 0900 02/20/17 0515 Significant Findings Laboratory Tests Test 02/19/17 04:45 02/20/17 05:15 02/21/17 09:00 Red Blood Count 3.06 MIL/MM3 (4.50-5.90) 3.14 MIL/MM3 (4.50-5.90) 3.61 MIL/MM3 (4.50-5.90) Hemoglobin 9.7 GM/DL (13.0-17.0) 9.7 GM/DL (13.0-17.0) 11.1 GM/DL (13.0-17.0) Hematocrit 28.3 % (39.0-51.0) 29.1 % (39.0-51.0) 33.6 % (39.0-51.0) Neutrophils (%) (Auto) 75.1 % (16.0-70.0) Monocytes (%) (Auto) 9.3 % (0.0-8.0) 8.1 % (0.0-8.0) Neutrophils # (Auto) 8.1 TH/MM3 (1.8-7.7) Monocytes # (Auto) 1.0 TH/MM3 (0-0.9) Random Glucose 108 MG/DL (74-106) Total Protein 5.0 GM/DL (6.4-8.2) Albumin 2.1 GM/DL (3.4-5.0) Calcium Level 7.5 MG/DL (8.5-10.1) 7.5 MG/DL (8.5-10.1) Alkaline Phosphatase 40 U/L (45-117) Estimat Glomerular Filtration Rate 78 ML/MIN (>89) Imaging GENERAL: SKIN: Warm and dry. HEAD: Normocephalic. EYES: No scleral icterus. No injection or drainage. NECK: Supple, trachea midline. No JVD or lymphadenopathy. CARDIOVASCULAR: Regular rate and rhythm without murmurs, gallops, or rubs. RESPIRATORY: Breath sounds equal bilaterally. No accessory muscle use. GASTROINTESTINAL: Abdomen soft, non-tender, nondistended. MUSCULOSKELETAL: No cyanosis, or edema. BACK: Nontender without obvious deformity. No CVA tenderness. PE at Discharge GENERAL: SKIN: Warm and dry. prevena dressing to chest , incision intact right EVH site worker: Normocephalic. EYES: No scleral icterus. No injection or drainage. NECK: Supple, trachea midline. No JVD or lymphadenopathy. CARDIOVASCULAR: Regular rate and rhythm without murmurs, gallops, or rubs. RESPIRATORY: Breath sounds equal bilaterally. No accessory muscle use. GASTROINTESTINAL: Abdomen soft, non-tender, nondistended. MUSCULOSKELETAL: No cyanosis, or edema. BACK: Nontender without obvious deformity. No CVA tenderness. Hospital Course 02/18 pt up in chair, weaning off the dobutamine, then wean off [place] gtt hold on starting BB today , will need to recheck LFT in am , if improved will start statin OOB, ambulate as tolerated , transfer to stepdown later today when off all pressors and BP stable 02/19 weaned off pressors , LFT normalized, will start statin hold on starting BB and ELISHA due to labile BP continue ASA, plavix pulm toileting , change pain med to Ultram per pt request leave chest tube in place for now/ drained 150cc/ 12 hrs 02/20 BP still too low to start BB / re-eval , no ELISHA 2/2 to labile BP pain controlled/ chest tube drained 70cc/ 12 hrs, chest tube removed without difficulty continue ambulation / on room air continue pulm toileting 02/21 + BM will start low dose BB ok to dc home with [facility] remains in [facility]R hold on starting ELISHA 2/2 labile BP Pt Condition on Discharge: Good Discharge Disposition: Disch w/ Home Health Serv Discharge Instructions DIET: Follow Instructions for: Heart Healthy Diet Activities you can perform: Full Weight Bearing, Shower Only-No Bath Activities to avoid: Strenuous Activity, Driving, Sexual Activity Additional Activity Instructio: no lifting > 8 lbs or gallon of milk Follow up Referrals: Cardiology with Julián Sesay DO PCP Follow-up with [facility] with Cristian Carney MD New Medications: Metoprolol Tartrate (Metoprolol Tartrate) 25 Mg Tab 12.5 MG PO BID for Blood Pressure Management, #60 TAB 2 Refills hold SBP<100 HR<60 Walker with Front Wheels (Walker with Front Wheels) 1 Mis Mis EA .ROUTE DIRECTED, #1 0 Refills Amiodarone (Amiodarone) 200 Mg Tab 200 MG PO Q12HR for heart rhythm for 14 Days, #28 TAB 0 Refills Aspirin (Aspirin Low Strength) 81 Mg Chew 81 MG PO DAILY for Blood Clot Prevention, #100 EA 1 Refill Atorvastatin (Atorvastatin) 40 Mg Tab 40 MG PO HS for Cholesterol Management, #30 TAB 2 Refills Clopidogrel (Plavix) 75 Mg Tab 75 MG PO DAILY for Blood Clot Prevention, #30 TAB 2 Refills Docusate Sodium (Dok) 100 Mg Cap 100 MG PO BID for Constipation, #60 CAP 0 Refills Multiple Vitamins W/ Minerals (Thera M Plus) 1 Tab 1 TAB PO DAILY for multi vitamin, #30 TAB Polyethylene Glycol 3350 Powder (Polyethylene Glycol 3350 Powder) 17 Gram Pow 17 GM PO DAILY for Constipation, #30 PACKET 0 Refills Tramadol (Ultram) 50 Mg Tab 50 MG PO Q6H PRN for PAIN SCALE 1 TO 5, #40 TAB Discontinued Medications: Hydrocodone-Acetaminophen ([place]) 5-325 mg Tab 1 TAB PO Q4H PRN for PAIN, TAB 0 Refills Kimi Cisneros Feb 21, 2017 12:08
[2017-02-21] MEDS ORDERED: METOPROLOL TARTRATE 25 MG TAB PO SCH (12:15)
--- NOTE | 2017-02-21 13:29 | PD.CARD.PN ---
Subjective Subjective Remarks Doing well, no complaints Up and ambulating Objective Medications Current Medications Medications (Trade) Dose Ordered Sig/[place]alton Route Start Time Stop Time Status Last Admin (Pill Splitter) 1 ea UNSCH PRN OTHER 02/15/17 04:45 (NS Flush) 2 ml BID IV FLUSH 02/17/17 12:15 02/21/17 08:55 (NS Flush) 2 ml UNSCH PRN IV FLUSH 02/17/17 12:15 (Aspirin Chew) 81 mg DAILY PO 02/18/17 09:00 02/21/17 08:49 (Plavix) 75 mg DAILY PO 02/18/17 09:00 02/21/17 08:49 (Protonix) 40 mg DAILY@06 PO 02/18/17 06:00 02/21/17 06:26 (Tylenol) 650 mg Q4H PRN PO 02/17/17 12:15 02/21/17 03:42 (Zofran Inj) 4 mg Q6H PRN IV PUSH 02/17/17 12:15 02/17/17 18:07 (Duoneb Neb) 1 ampule Q2HR NEB PRN NEB 02/17/17 12:15 (Colace) 100 mg BID PO 02/18/17 10:00 02/21/17 08:49 (Theragran M Tab) 1 tab DAILY PO 02/19/17 09:00 02/21/17 08:49 (Milk Of Magnesia Liq) 30 ml DAILY PO 02/19/17 09:00 02/21/17 08:50 (Dulcolax Supp) 10 mg UNSCH PRN RECTAL 02/18/17 10:00 (Miralax) 17 gm DAILY PO 02/19/17 09:00 02/21/17 08:50 (Senokot) 8.6 mg HS PO 02/18/17 21:00 02/20/17 21:01 (Fleets Enema (Adult)) 133 ml UNSCH PRN RECTAL 02/18/17 10:00 (D50w (Vial) Inj) 50 ml UNSCH PRN IV 02/18/17 10:00 (Glucagon Inj) 1 mg UNSCH PRN OTHER 02/18/17 10:00 (NovoLOG SUPPLEMENTAL SCALE) 1 ACHS SQ 02/19/17 08:00 02/21/17 08:49 (Lipitor) 40 mg HS PO 02/19/17 21:00 02/20/17 21:01 (Ultram) 50 mg Q6H PRN PO 02/19/17 11:00 02/20/17 22:37 (Ambien) 5 mg HS PRN PO 02/19/17 11:00 02/20/17 22:36 (Cordarone) 200 mg Q12HR PO 02/21/17 21:00 (Lopressor) 12.5 mg Q12HR PO 02/21/17 12:15 Vital Signs / I&O Vital Signs Date Time Temp Pulse Resp B/P (MAP) Pulse Ox O2 Delivery O2 Flow Rate FiO2 02/21/17 12:00 80 02/21/17 11:13 97.8 86 18 121/69 (86) 97 02/21/17 11:00 82 02/21/17 10:00 92 02/21/17 09:00 84 02/21/17 08:00 68 02/21/17 07:00 98.5 84 18 112/69 (83) 95 02/21/17 07:00 68 02/21/17 06:00 72 02/21/17 05:00 71 02/21/17 04:53 14 02/21/17 04:00 70 02/21/17 03:02 72 02/21/17 03:00 98.4 89 16 109/60 (76) 94 02/21/17 02:04 73 02/21/17 01:00 76 02/21/17 00:00 78 02/20/17 23:48 14 02/20/17 23:00 78 02/20/17 23:00 98.3 84 16 103/61 (75) 94 02/20/17 22:00 81 02/20/17 21:00 86 02/20/17 20:00 80 02/20/17 19:05 21 02/20/17 19:00 98.5 81 16 104/60 (75) 96 02/20/17 19:00 76 02/20/17 18:00 72 02/20/17 17:00 83 02/20/17 16:00 85 02/20/17 15:00 99 02/20/17 15:00 93 Room Air 02/20/17 15:00 98.4 84 16 102/59 (73) 93 02/20/17 14:00 78 I/O 02/20/17 02/20/17 02/20/17 02/21/17 02/21/17 02/21/17 07:00 15:00 23:00 07:00 15:00 23:00 Intake Total 240 ml 750 ml 480 ml Output Total 620 ml 1275 ml Balance -380 ml -525 ml 480 ml Intake Oral 240 ml 750 ml 480 ml Output Urine Total 550 ml 1275 ml Chest Tube Drainage Total 70 ml # Voids 4 5 # Bowel Movements 0 0 Physical Exam GENERAL: AAOx3, NAD SKIN: Warm and dry. HEAD: Atraumatic. Normocephalic. EYES: Pupils equal and round. No scleral icterus. No injection or drainage. ENT: No nasal bleeding or discharge. Mucous membranes pink and moist. NECK: Trachea midline. No JVD. CARDIOVASCULAR: Regular rate and rhythm. Sternotomy with wound vac RESPIRATORY: No accessory muscle use. Clear to auscultation. Breath sounds equal bilaterally. GASTROINTESTINAL: Abdomen soft, non-tender, nondistended. Hepatic and splenic margins not palpable. MUSCULOSKELETAL: Extremities without clubbing, cyanosis, or edema. No obvious deformities. Right radial no hematoma, neurovascularly intact distally NEUROLOGICAL: Awake and alert. No obvious cranial nerve deficits. Motor grossly within normal limits. Five out of 5 muscle strength in the arms and legs. Normal speech. PSYCHIATRIC: Appropriate mood and affect; insight and judgment normal. Laboratory Laboratory Tests Test 02/21/17 09:00 White Blood Count 7.0 TH/MM3 Red Blood Count 3.61 MIL/MM3 Hemoglobin 11.1 GM/DL Hematocrit 33.6 % Mean Corpuscular Volume 92.9 FL Mean Corpuscular Hemoglobin 30.7 PG Mean Corpuscular Hemoglobin Concent 33.0 % Red Cell Distribution Width 14.5 % Platelet Count 298 TH/MM3 Mean Platelet Volume 8.3 FL Assessment and Plan Problem List: (1) Coronary artery disease ICD Codes: I25.10 - Atherosclerotic heart disease of [place] coronary artery without angina pectoris (2) S/P CABG x 3 ICD Codes: Z95.1 - Presence of aortocoronary bypass graft Status: Acute (3) Right inguinal hernia ICD Codes: K40.90 - Unilateral inguinal hernia, without obstruction or gangrene , not specified as recurrent Status: Acute (4) Severe left ventricular systolic dysfunction ICD Codes: I51.9 - Heart disease, unspecified Assessment and Plan 1) MVCAD/NSTEMI s/p CABG POD #4 HDZ to LAD SVG to OM1 SVG to OM2 2) EF 35-40% by echo 3) ASA/Plavix/Amio/Statin/BB 4) Con't to ambulate 5) Agree with discharge today, cardiovascularly stable Problem Qualifiers (1) Coronary artery disease: Julián Sesay DO Feb 21, 2017 13:29
[2017-02-21] MEDS ORDERED: AMIODARONE 200 MG TAB PO SCH (21:00)
--- NOTE | 2017-03-11 08:48 | RSPPFT ---
DATE OF PROCEDURE: 02/15/17 COMMENTS: Spirometry demonstrates normal values. The flow volume loops appear unremarkable. Lung volumes were not completed. IMPRESSION: 1. Essentially normal spirometry.
== END 2017-02-21 14:10 | disposition home health service (06) | DRG 234 ==
LOC: PHED 02:15 → PHEDA 02:46 → HCIS 03:18 → HCVI 02-17 12:30 → HCPC 02-18 12:45
PROVIDERS: ADMIT Thoracic Surgery (Cardiothoracic Vascular Surgery); ATTEND Thoracic Surgery (Cardiothoracic Vascular Surgery)
PROC: B2111ZZ Fluoroscopy of Multiple Coronary Arteries using Low Osmolar Contrast (ICD-10-PCS; 2017-02-15)
PROC: 4A023N7 Measurement of Cardiac Sampling and Pressure, Left Heart, Percutaneous Approach (ICD-10-PCS; 2017-02-15)
PROC: 021109W Bypass Coronary Artery, Two Arteries from Aorta with Autologous Venous Tissue, Open Approach (ICD-10-PCS; 2017-02-17)
PROC: 06BP4ZZ Excision of Right Saphenous Vein, Percutaneous Endoscopic Approach (ICD-10-PCS; 2017-02-17)
PROC: 3E0T3BZ Introduction of Anesthetic Agent into Peripheral Nerves and Plexi, Percutaneous Approach (ICD-10-PCS; 2017-02-17)
PROC: 02100Z9 Bypass Coronary Artery, One Artery from Left Internal Mammary, Open Approach (ICD-10-PCS; principal; 2017-02-17 07:17)
DX: I21.4 Non-ST elevation (NSTEMI) myocardial infarction (principal); E78.5 Hyperlipidemia, unspecified; I25.110 Atherosclerotic heart disease of native coronary artery with unstable angina pectoris; G89.29 Other chronic pain; M54.9 Dorsalgia, unspecified; N40.0 Benign prostatic hyperplasia without lower urinary tract symptoms; M19.90 Unspecified osteoarthritis, unspecified site; Z95.5 Presence of coronary angioplasty implant and graft; Z86.73 Personal history of transient ischemic attack (TIA), and cerebral infarction without residual deficits; Z87.891 Personal history of nicotine dependence; K40.90 Unilateral inguinal hernia, without obstruction or gangrene, not specified as recurrent
CPT/HCPCS: 71010; 76937; 80048; 80053; 81001; 82550; 82948; 83735; 83880; 84484; 85014; 85025; 85027; 85610; 85730; 86850; 86900; 86901; 86920; 87641; 93005; 93306; 93318; 93454; 93880; 93970; 93998; 94002; 94010; 94150; 94640; 94664; 94667; 94668; 96374; 96375; C1768; C1769; C1893; C9290; J0131; J0690; J1100; J1250; J1644; J1815; J1817; J1885; J1940; J2250; J2270; J2370; J2405; J2440; J2720; J3010; J3370; J3475; J3480; J7040; J7050; J7060; J7120

== ENCOUNTER → 2017-06-04 | Day surgery (SDC) | payer MEDICARE ==
[~2017-06-04] VITALS: Ht 182.9 cm; Wt 81.2 kg
[~2017-06-04] MED LIST changes: -AMBI10TA PO; +ASPI81CH25 PO; +LIPI40TA PO; +THERM PO
[2017-06-04 07:55] VITALS: BP 145/91; PULSE 92; RESP 20; TEMP 97.8; O2SAT 96
== END | disposition home or self-care (01) ==
LOC: HSDC 07:17
PROVIDERS: ATTEND Surgery Trauma Surgery
DX: K40.90 Unilateral inguinal hernia, without obstruction or gangrene, not specified as recurrent (principal); Z53.9 Procedure and treatment not carried out, unspecified reason
CPT/HCPCS: 99211; G0463

== ENCOUNTER → 2017-07-14 | Day surgery (SDC) | payer MEDICARE ==
[~2017-07-14] VITALS: Ht 182.9 cm; Wt 82.4 kg
[~2017-07-14] MED LIST changes: +*morphine SULFATE 4 MG/ML PERIprocedure ONLY ONE; +ACETAMINOPHEN 1000 MG/100 ML 0 ML IV ONE; +ACETAMINOPHEN 1000 MG/100 ML 100 ML IV ONE; +ACETAMINOPHEN/HYDROcodone 325 MG/5 MG TAB PO PRN; +ARTIFICIAL TEARS OPTH OINT 3.5 APPLIC/3.5 GM TUBO ONE; +BUPIVACAINE/EPINEPHRINE 0.25% 50 ML VIAL ONE; +CHLORHEXIDINE GLUCONATE 2 % 1 PACK (2 CLOTHS) TOPICAL PRN; +DEXAMETHASONE SOD PHOS 4 MG/ML VIAL IV ONE; +DO NOT ADM ANY ANTICOAGULANT DRUGS PRN; +HYDR-3288 PO; +KETOROLAC TROMETHAMINE 30 MG/ML (IVP) VIAL IV PUSH ONE; +LACTATED RINGER'S 1000 ML INJ 1,000 ML IV ONE; +LACTATED RINGER'S 1000 ML IV PRN; +LIDOCAINE 1%/EPINEPHrine 1:100,000 SOLN 30 ML VIAL ONE; +LIDOCAINE HCL 1% PF 5 ML SYRINGE OTHER ONE; +METOPROLOL TARTRATE 25 MG TAB PO PRN; +METOPROLOL TARTRATE 5 MG/5 ML VIAL IV PUSH ONE; +MIDAZOLAM HCL 2 MG/2 ML VIAL ONE; +MORPHINE SULFATE 2 MG/ML INJ IV PRN; +ONDANSETRON HCL 4 MG/2 ML VIAL IV ONE; +ONDANSETRON HCL 4 MG/2 ML VIAL IV PUSH PRN; +PHENYLEPH/NS 1000 MCG/10 ML SYR IV ONE; +POVIDONE IODINE 5% (ANTISEPSIS KIT) 4 APPLICATIONS EACH NARE PRN; +PROPOFOL 200 MG/20 ML AMP IV ONE; +ROCURONIUM INJ 50 MG/5 ML SYRINGE IV PUSH ONE; +SODIUM CHLOR 0.9% 250 ML INJ 250 ML ONE; +SODIUM CHLORID 0.9% 500 ML IV PRN; +SUGAMMADEX SODIUM 200 MG/2 ML VIAL IV PUSH ONE; +VANCOMYCIN 1 GM/200 ML PREMIX ON-CALL IV SCH; +VANCOMYCIN HCL 1000 MG VIAL ONE; +ceFAZolin 1,000 MG/NS 100 ML IV SCH; +ceFAZolin INJ 1,000 MG VIAL IV ONE; +ePHEDrine/NS 25 MG/5 ML SYRINGE IV ONE
[2017-07-14 07:02] LABS: AUTOMATED NEUTROPHIL # 4.2 TH/MM3 (1.8-7.7); BASOPHIL # 0.1 TH/MM3 (0-0.2); EOSINOPHIL # 0.1 TH/MM3 (0-0.4); EOSINOPHIL % 1.3 % (0.0-4.0); HEMATOCRIT 45.9 % (39.0-51.0); HEMOGLOBIN 15.5 GM/DL (13.0-17.0); LYMPH % 27.2 % (9.0-44.0); LYMPHOCYTE # 1.8 TH/MM3 (1.0-4.8); MEAN CELL VOLUME 88.3 FL (80.0-100.0); MEAN CORPUSCULAR HEMOGLOBIN 29.9 PG (27.0-34.0); MEAN CORPUSCULAR HGB CONC 33.8 % (32.0-36.0); MEAN PLATELET VOLUME 8.7 FL (7.0-11.0); MONO % 6.9 % (0.0-8.0); MONOCYTE # 0.5 TH/MM3 (0-0.9); NEUT % 63.6 % (16.0-70.0); PLATELET COUNT 254 TH/MM3 (150-450); RED CELL DISTRIBUTION WIDTH 14.8 % (11.6-17.2); WHITE BLOOD COUNT 6.5 TH/MM3 (4.0-11.0)
[2017-07-14 07:04] LABS: BICARBONATE 27.9 MEQ/L (21.0-32.0); CREATININE 1.04 MG/DL (0.60-1.30)
[2017-07-14 07:16] LABS: PROTHROMBIN TIME - PATIENT 10.3 SEC (9.8-11.6)
[2017-07-14 12:03] VITALS: BP 139/69; PULSE 81; RESP 20; TEMP 98; O2SAT 95
--- NOTE | 2017-07-15 09:58 | MP ---
cc: GLENDA COFFMAN M.D., KAMAL W. M.D. DATE OF SURGERY 07/14/2017 PROCEDURE 1. Laparoscopic right inguinal hernia repair with mesh. 2. Primary umbilical hernia repair. PREOPERATIVE DIAGNOSIS 1. Symptomatic reducible right inguinal hernia. 2. Reducible umbilical hernia. POSTOPERATIVE DIAGNOSIS 1. Symptomatic reducible right inguinal hernia. 2. Reducible umbilical hernia. ANESTHESIA General endotracheal. SURGEON Rober. ESTIMATED BLOOD LOSS 10 mL. FLUIDS 1100 mL crystalloid. COMPLICATIONS None. DRAINS None. SPECIMEN None. PROCEDURE IN DETAIL The patient was seen in the holding area and the right groin marked by the undersigned and confirmed by the patient. He was taken to the operating room and placed on the operating table in the supine position. After an adequate level of general endotracheal anesthesia was achieved the groin and lower abdomen were shaved, prepped and draped. A timeout was taken, confirming the correct patient, site, and procedures to be performed. Skin and subcutaneous tissue was infiltrated with local anesthetic and an incision was made in the umbilicus. Preperitoneal fat, which comprised the hernia, was reduced and placed back into the abdominal cavity. A 12 mm balloon trocar was inserted and the balloon inflated. The abdomen was insufflated. The patient was placed in Trendelenburg position. A 5 mm 30-degree laparoscope was inserted and the hernia was noted. There was omentum that was adhesed to the peritoneum and this was taken down sharply with scissors. An incision was then made in the peritoneum above the hernia defect and the peritoneum was peeled down. The hernia sac was dissected off of the spermatic cord structures. There appeared to be a component of preperitoneal lipoma as well and this was reduced off of the spermatic cord structures. A window was created behind the spermatic cord structures and loose tissue taken down off the anterior abdominal wall. The hernia seemed to be both a direct and indirect hernia. The epigastric vessels were divided with the Harmonic scalpel to allow for more secure repair. A 6 x 6 inch piece of Ultrapro mesh was cut to approximately 4 x 6 inch size and then slit longitudinally with the corners rounded. The mesh was placed into the pelvis and the inferior leaf was brought under the spermatic cord structures. The mesh was transfixed to Bari's ligament with 4.0 mm mirian, and then to the transversalis fascia with 4.8 mm mirian. The new internal ring was recreated by closing the slit in the mesh with two 4.8 mm mirian. The abdomen was partially desufflated and the peritoneum then closed with 4.8 mm mirian and re-approximated. Insufflation was then totally discontinued and the left and right lower quadrant trocars were removed under direct vision. No bleeding was noted from the trocar sites. The laparoscope and umbilical port were then removed. The remaining preperitoneal fat was taken down off of the fascia at the umbilicus and the umbilicus closed with simple interrupted #1 Prolene sutures. The fascia was closed in the right lower quadrant 12 mm trocar site with 0 Vicryl suture in s [id number] fashion. The skin was closed at all three trocar sites with 4-0 Vicryl in an interrupted buried fashion. All sites were dressed with Steri-Strips. An abdominal binder and athletic supporter were then applied. The patient was then extubated and taken back to the recovery room in stable condition. Sponge and needle counts were reported to be correct. The patient tolerated the procedure well. MD ASHA Sheriff/JOHN /9:52 AM /9:41 AM
== END | disposition home or self-care (01) ==
LOC: HSDC 05:39
PROVIDERS: ATTEND Surgery Trauma Surgery
DX: K40.90 Unilateral inguinal hernia, without obstruction or gangrene, not specified as recurrent (principal); K42.9 Umbilical hernia without obstruction or gangrene; I25.10 Atherosclerotic heart disease of native coronary artery without angina pectoris; I10 Essential (primary) hypertension; I25.2 Old myocardial infarction; E78.5 Hyperlipidemia, unspecified; Z95.1 Presence of aortocoronary bypass graft; Z79.82 Long term (current) use of aspirin; Z95.5 Presence of coronary angioplasty implant and graft
CPT/HCPCS: 80048; 85025; 85610; 85730; C1781; J0131; J0690; J1100; J1885; J2250; J2270; J2370; J2405; J3010; J3370; J7050; J7120